=== PATIENT | male | born 1980 | race Caucasian/White ===

== ENCOUNTER → 2017-12-15 05:57 | Outpatient (CLI) | payer OTHER, SELFPAY ==
--- NOTE | 2017-12-15 17:51 | STRESSREP ---
Stress Test Report Exercise myocardial perfusion stress test. 37-year-old man with a history of hypertension. Cannot exclude hypertrophic cardiomyopathy. Medications metoprolol verapamil. Resting EKG demonstrates sinus rhythm with a rate of 64 bpm. Deep T-wave inversions noted in leads II, III and aVF V4 V5 and V6. The patient exercised according to the regular Xiang protocol for total duration of 7 minutes completing 1 minute into stage III of the Xiang protocol. The maximum heart rate attained was 150 bpm which was 82% of maximum predicted heart rate the maximum workload attained was 8.6 metabolic equivalents. The patient maintained sinus rhythm throughout the recording. The T-wave inversions persisted throughout the exercise. No chest pain was noted the test was terminated due to leg fatigue and shortness of breath. No arrhythmias were noted. The resting blood pressure was 142/80 mmHg and the peak blood pressure was 190/90 mmHg. Rate pressure product was 26,000. Myocardial perfusion protocol. 14.8 mCi of technetium 99m sestamibi was injected at rest. The patient exercised according to regular Xiang protocol for 7 minutes attaining 82% maximum corrected heart rate and a workload of 8.6 metabolic equivalents. At peak exercise 44.7 mCi of technetium 99m sestamibi was injected. Stress images were obtained stress and rest images were reconstructed and compared in the short axis vertical long and horizontal long axis. Gated images were also obtained. Perfusion SPECT analysis: Review of the stress images demonstrate a normal cardiac silhouette size. The septum and anterior wall and lateral wall appear to be well perfused. The mid to distal inferior wall and inferoapical wall has a medium-sized defect on the stress images which reperfuses completely on the resting images. The above is suggestive of inferior apical ischemia. Gated SPECT analysis: The gated ejection fraction is noted to be 48%. Conclusion: Abnormal myocardial perfusion stress test with EKG changes as well as distal inferior apical ischemia present. Mild left ventricular systolic dysfunction.
== END ==
PROVIDERS: Family Provider Internal Medicine; PCP Internal Medicine; Visit Provider Internal Medicine Cardiovascular Disease
DX: I25.10 Atherosclerotic heart disease of native coronary artery without angina pectoris (principal); I42.1 Obstructive hypertrophic cardiomyopathy
CPT/HCPCS: 78452; 93017; A9500; A4216

== ENCOUNTER → 2018-01-02 08:14 | Day surgery (SDC) | payer OTHER, SELFPAY ==
[2018-01-01 13:03] VITALS: BMI 39.0
--- NOTE | 2018-01-02 08:48 | PCM.HP.BLA ---
History and Physical HPI Details: RANDOLPH VAZQUEZ, is a 37 M who presents to the cardiac Director [employer] for left heart catheterization. Patient was seen and examined prior to heart catheterization. He is currently a patient of Dr. Benitez, Box Truck Driver. He has a history of mild coronary artery disease noted in August of 2016, hypertrophic obstructive cardiomyopathy variant, vasovagal syncope, hypertension, hyperlipidemia, palpitations, and GI bleed in 2012. While at his most recent office visit with Dr. Benitez, patient expressed concerning symptoms of chest pain/tightness and decreased physical capacity. He underwent a stress test for further evaluation. His stress test was abnormal and showed distal inferior apical ischemia and mild LV systolic dysfunction with an ejection fraction 48%. Patient will be undergoing a left heart catheterization for further evaluation. He continues to have chest tightness. Pt. denies left arm, jaw, or neck discomfort. His exercise tolerance is reduced. Pt. denies symptoms of lightheadedness, dizziness, near syncope, or syncopal episodes. Pt. denies edema or claudication issues. Pt. denies orthopnea, PND, fever, chills, blood in urine, blood in stool, myalgia, or unexplainable fatigue. Pt. states having episodes of palpitations that occur while walking in the store at times. He expresses some SOB with activity, but this is unchanged. Intake Intake Visit Reasons: Amb Documentation Allergies No Known Allergies Allergy (Verified 01/01/18 13:05) Medications Metoprolol(XL)Succ [Toprol Xl (Beta Tomas)] 50 mg PO BID 06/29/17 [History Confirmed 01/01/18] aspirin 81 mg tablet,delayed release 81 mg PO .Q DAY tab 12/18/17 [History Confirmed 01/01/18] clopidogrel 75 mg tablet 75 mg PO QDAY #30 tab 12/18/17 [Rx Confirmed 01/01/18] omeprazole 40 mg capsule,delayed release 40 mg PO QDAY 12/18/17 [History Confirmed 01/01/18] Ibuprofen 800 mg PO Q6H PRN PRN 01/01/18 [History Confirmed 01/01/18] Verapamil Sr 120 mg PO QHS 01/01/18 [History Confirmed 01/01/18] Atorvastatin Calcium [Lipitor] 20 mg PO QHS 01/02/18 [History Confirmed 01/02/18] Ejection fraction %: 45 to 49 PFSH Medical History Atherosclerosis of menominee coronary artery of menominee heart without angina pectoris (Chronic) Palpitations (Acute) Syncope and collapse (Acute) HOCM (hypertrophic obstructive cardiomyopathy) (Chronic) Abnormal stress test (Acute) Chest pain (Acute) Abnormal resting ECG findings (Chronic) Anxiety (Chronic) Cervicalgia (Chronic) Erosive esophagitis (Chronic) Essential (primary) hypertension (Chronic) Headache (Chronic) Heart murmur (Chronic) Herpes zoster (Chronic) Hyperlipidemia (Chronic) Nicotine dependence, cigarettes, uncomplicated (Chronic) GI bleed (Resolved) Surgical History H/O colonoscopy (Acute ~03/24/13) History of esophagogastroduodenoscopy (EGD) (Chronic) History of left heart catheterization (Chronic) Family History Father CAD (coronary artery disease) CABG at age 55; at 57 with possible [place], Diabetes Hypertension Hyperlipidemia Grandfather CAD (coronary artery disease) Grandmother Diabetes Brother Hypertension Social History Smoking Status: Current every day smoker ROS Const Const: Positive for headache(s) and daytime sleepiness; negative for fatigue, weakness, body ache, fever(s) or chills ENT ENT: Positive for headache(s); negative for dizziness Cardio Chest Pain: Yes Palpitations: Yes Edema: Left Muscle aches with walking: None Resp Respiratory: Positive for SOB with activity and snoring; negative for SOB at rest, SOB orthopnea\SOB lying down or paroxysmal nocturnal dyspnea GI GI: Negative nausea, black,tarry stools, bright, red blood in stools or vomiting blood/hematemesis : Negative for hematuria or frequent nighttime urination/ nocturia Musc Musc: Negative for muscle aches/ myalgia Neuro Neuro: Positive for headache(s); negative for weakness, dizziness, lightheadedness, near syncope, syncope or orthostatic symptoms Endo Endo: Negative for fatigue Cardiology Exam Const Appearance: cooperative, healthy appearing, comfortable and no acute distress Orientation: alert, awake and oriented x3 Head Head: normal to inspection Mouth: oral mucosae normal Neck Neck: no JVD and normal visual inspection Carotids: normal carotid upstroke Chest Chest inspection: normal inspection of the chest and normal respiratory effort Auscultation: Bilateral: Clear to Auscultation Cardio Rate: regular rate Rhythm: regular rhythm Heart sounds: S2 normal and murmur; negative rub or gallop Murmur: Grade 2/6 and LLSB GI GI: normal to inspection Neuro General: alert, awake, oriented x3 and CN's II-XI intact bilaterally Skin Skin: no rashes or lesions noted Extremities Pulses: Normal: Right Posterior Tibial Pulse, Left Posterior Tibial Pulse, Right Radial Pulse, Left Radial Pulse Lower Extremity Edema: None: Bilateral Psych Psychological: normal affect Supplemental Info Cardiovascular stress test from December 2017 was an abnormal myocardial perfusion stress test with EKG changes as well as distal inferior apical ischemia present and mild left ventricular systolic dysfunction. Ejection fraction was reported at 48%. Assessment & Plan 1. Chest pain, unspecified type R07.9 Plan This was evaluated with a stress test that was abnormal. Patient will be undergoing a left heart catheterization for further evaluation. Patient will also continue to follow-up with primary residential door unit installer, Dr. Benitez, for further treatment plan/recommendation in his office. 2. Palpitations R00.2 Plan Patient continues to have fluttering sensation in his chest. He will continue current medications for this. He will continue to follow-up with primary Box Truck Driver for this. 3. Syncope and collapse R55 vasovagal syncope Plan Patient denies any recurrence of this. He will continue follow-up with primary care physician and residential door unit installer regarding this. 4. HOCM (hypertrophic obstructive cardiomyopathy) I42.1 apical variant form of HCM noted in 2016. LVOT obstruction noted 2008 Plan There is no echocardiogram available to review to further evaluate this. He will continue follow-up with primary residential door unit installer for ongoing treatment/management of this. 5. Pure hypercholesterolemia E78.00; E78.0 Plan Patient will continue statin medication for this. 6. Daytime somnolence R40.0 Plan Patient expresses symptoms potentially compatible with sleep apnea. He was asked to discuss this further with Primary Box Truck Driver or Primary Care Doctor. 7. Atherosclerosis of menominee coronary artery of menominee heart without angina pectoris I25.10 minimal CAD per cath 08/2016 Plan This will further be evaluated for progressing disease with the left heart cath. We will wait for the result for further recommendation. Plan Detail Additional Comments Patient will follow up with Dr. Benitez for ongoing cardiology care. Thank you for allowing us to participate in the patients plan of care, if you have any questions please do not hesitate to call. This note was generated using a voice recognition system and there may be incorrect words, spelling or punctuation that were not noted when reviewing the office note prior to saving.
--- NOTE | 2018-01-06 11:23 | CL.D_ITS ---
Patient Name: RANDOLPH VAZQUEZ Study Date: 01/02/2018 Performing: Chan Rose MD Ht: 71 inches 180.34 cm : 1980 Wt: 280.4 lbs 127.01 kg Age: 37 Gender: male BSA: 2.43 PROCEDURE(S) PERFORMED [id number] CLINICAL PROFILE AND INDICATIONS Indications: 37-year-old man with hypertrophic cardiomyopathy and abnormal stress test. Heart Failure: None Stress/Imaging Stress Test w/SPECT MPI: Yes Result: Positive Intermediate RiskStress Test with SP ECT MPI: Positive Intermediate Risk CONCLUSIONS Normal coronary arteries Cardiomyopathy: Hypertrophic RECOMMENDATIONS Medical therapy Medical therapy DESCRIPTION OF PROCEDURE The patient arrived to the procedure lab. The risks and benefits of the procedure as well as a full d escription of our services here and current unavailability of surgical backup were fully explained to the patient and/or their significant other prior to the catheterization. The Timeout was completed, verifying the correct patient and procedure. The patient's procedural site was prepped and draped in the usual fashion. Local anesthetic was given subcutaneously to right radial region with Lidocaine 2% . Using a modified Seldinger technique, arterial access was obtained via the right radial artery, a 5 Fr sheath was inserted. Left Coronary Artery selective angiography was performed in multiple views u sing a 5 Fr. 4.0 [place] catheter. Left Coronary Artery selective angiography was performed in multiple views using a 5 Fr. JL3.5 catheter. Right Coronary Artery selective angiography was then performed i n multiple views using a 5 Fr. JR 5 catheter.The arterial sheath was pulled and a TR Band was applied for hemostasis. 13cc air CORONARY ANGIOGRAPHY DOMINANCE: Right Dominant LEFT HEART ASSESSMENT Left Ventricular Ejection Fraction: by Echo 75 % Normal LV wall motion LEFT MAIN: Angiographically normal LEFT ANTERIOR DECENDING ARTERY: Angiographically normal CIRCUMFLEX ARTERY: Angiographically normal RIGHT CORONARY ARTERY: Mild luminal irregularities less than 30% COMPLICATIONS No Complications PROCEDURE MEDICATIONS Fentanyl 50 mcg IV Versed 1 mg IV Fentanyl 25 mcg IV Oxygen: 2 L/min via nasal cannula Heparin diluted in 23cc Heparinized saline. Patient given 10cc IA of this solution. 01/02/2018 09:48: 10 Verapamil 2.5mg, Ntg 100mcgs, 2000 units of Heparin diluted in 23cc Heparinized saline. Patient give n 10cc IA of this solution. 01/02/2018 09:48:10 SUMMARY OF HEMODYNAMIC DATA Time AIR REST ECG 08:48:17 ECG 09:28:34 AO 120/90 (103) SA 09:51:49 Signed By Chan Rose MD On 01/06/2018 11:23:07 Chan Rose MD
== END ==
LOC: CLSP 08:15
PROVIDERS: Family Provider Internal Medicine; PCP Internal Medicine; Visit Provider Internal Medicine Cardiovascular Disease
DX: I42.1 Obstructive hypertrophic cardiomyopathy (principal); R94.31 Abnormal electrocardiogram [ECG] [EKG]; R07.9 Chest pain, unspecified; R00.2 Palpitations; R55 Syncope and collapse; I25.10 Atherosclerotic heart disease of native coronary artery without angina pectoris; I10 Essential (primary) hypertension; E78.5 Hyperlipidemia, unspecified; K22.10 Ulcer of esophagus without bleeding; R01.1 Cardiac murmur, unspecified; F17.210 Nicotine dependence, cigarettes, uncomplicated; Z79.82 Long term (current) use of aspirin; Z79.899 Other long term (current) drug therapy
CPT/HCPCS: 93454; 99152; 99153; J3010; J7040; Q9967

== ENCOUNTER → 2020-03-01 16:42 | Outpatient (CLI) | payer BC, SELFPAY ==
[2020-03-01 15:43] VITALS: BMI 41.5
[2020-03-01 17:38] LABS: AST(SGOT) 33 U/L (15-37); Alanine Aminotransfer ALT/SGPT 62 U/L (16-61); Albumin, Serum 3.7 g/dL (3.2-5.0); Alkaline Phosphatase 84 U/L (45-117); Bilirubin, Direct 0.21 mg/dL (0.00-0.30); Cholesterol 167 mg/dL (200); Globulin 3.3 g/dL (2.2-4.2); High Density Lipoprotein 27 mg/dL; Triglycerides 298 mg/dL; Very Low Density Lipoprotein 60 mg/dL (5-40)
--- OUTSIDE RECORDS SUMMARY | 2020-07-18 18:09 | XMS RPT_ITS | CCD ---
:1980 External Reference #:[id number] Author Organization [facility] Care Team Providers Name Role Phone ERIKA, E Unavailable Unavailable ERIKA, E Unavailable Unavailable ERIKA, E Unavailable Unavailable ERIKA, E Unavailable Unavailable ERIKA Unavailable Unavailable ERIKA Unavailable Unavailable Bran Unavailable Unavailable ERIKA Unavailable Unavailable ERIKA Unavailable Unavailable Bran Unavailable Unavailable ERIKA Unavailable Unavailable ERIKA Unavailable Unavailable Bran Unavailable Unavailable ERIKA Unavailable Unavailable ERIKA Unavailable Unavailable Bran Unavailable Unavailable ERIKA, E Unavailable Unavailable HERRERA, A Admitting Unavailable Denisse HERRERA Attending Unavailable NONE Primary Care Unavailable NONE Consulting Unavailable Allergies Reported Allergen Reaction(s) Severity Date of Onset Location buPROPion Mild (qualifier [facility] Hospital Reposi tory Problems Category Problem Name Status Date Location Coronary atherosclerosis Atherosclerotic heart Active 018 [facility] and other heart disease disease of [place] ([address]) coronary artery without angina pectoris Essential hypertension Essential (primary) Active 05-15-2017 - [facility] ([id number]) Miscellaneous mental Psychophysiologic Active 10-26-2019 - [facility] (0 0000) Malissa-; endo-; and Obstructive hypertrophic Active 12-01-2017 - [facility] myocarditis; cardiomyopathy [facility] cardiomyopathy ([id number]) Unclassified Unknown / UNK(Unknown) Active 05-15-2017 - [facility] ([id number]) Results Result Name Value Range Unit Interpretation Flag Date Location obsolete on 2019-05 OBSOLETE Refill (INTMWS) Normal 05-17-2019 [facility] TYRON VAZQUEZ ([id number]) 1980 [facility] Date Time Provider Department ([id number]) 05/17/19 ERNESTO BRAN During your visit today, we recorded the following informati on about you: Michaelle Marsh RN 05/17/2019 2:28 PM Signed Patient phones requesting refills as follows: Pending Prescriptions Disp Refills OMEPRAZOLE MAGNESIUM 20 MG TABLET,DELAYED RELEASE 60 tablet 5 Sig: Take 2 tablets by mouth daily before breakfast. 1/2 hr before meal. SARA: No Last office visit 12-01-18 Please review and advise. Michaelle Marsh RN Allergies As of Date: 05/17/2019 Noted Allergy Reaction BUPROPION 05/18/2018 14 - Other: See Comments Comments: Flushing, numbness, tingling. Date Reviewed: 12/01/2018 Reviewed by: Ghazala Dodd Ma - Fully Assessed Reason for Visit: Refill Request [94] Visit Diagnosis:Erosive esophagitis [K22.10] Order(s):Omeprazole Magnesium (PRILOSEC OTC) 20 mg tabletTak e 2 tablets by mouth daily before breakfast. 1/2 hr before meal.Disp: 60 ta bletRfl: 5 Prescriptions as of 05/17/2019 Sig: OMEPRAZOLE MAGNESIUM 20 MG TA* Take 2 tablets by mouth daily * METOPROLOL SUCCINATE ER 100 M* Take 1 tablet by mouth twice * FLUTICASONE PROPIONATE 50 MCG* Use 2 Sprays in each nostril * FLUCONAZOLE 150 MG TABLET Take 150 mg by mouth. Take tw* ATORVASTATIN 40 MG TABLET Take 1 tablet by mouth daily MOMETASONE 0.1 % TOPICAL CREAM Apply 1 application to affect * NITROGLYCERIN 0.4 MG SUBLINGU* Dissolve 1 tablet under the t * IBUPROFEN 200 MG TABLET Take 800 mg by mouth every 6 * Problem List As Of Date 05/17/2019 Noted Resolved HTN (hypertension) [I10] INVALID FOR*01/15/2013 Anxiety [F41.9] INVALID FOR*01/15/2013 Cervicalgia [M54.2] INVALID FOR*01/15/2013 Hyperlipidemia [E78.5] INVALID FOR* Erosive esophagitis [K22.10] INVALID FOR* Tobacco use disorder [F17.200] INVALID FOR* Syncope and collapse [R55] INVALID FOR*07/09/2016 Abnormal ECG [R94.31] INVALID FOR*05/18/2018 Family history of ischemic heart disease [Z82.4*INVALID FOR* Chest pain [R07.9] INVALID FOR*05/18/2018 Apical variant hypertrophic cardiomyopathy (HCC*INVALID FOR* HTN (hypertension) [I10] INVALID FOR* Obesity, Class II, BMI 35-39.9 [E66.9] INVALID FOR* Eczema [L30.9] INVALID FOR* Prescriptions ordered this encounter Disp Refills Start End OMEPRAZOLE MAGNESIUM 20 MG TABLET,DE* 60 t* 5 05/18/2019 Route: ORAL Sig: Take 2 tablets by mouth daily before breakfast. 1/2 hr before meal. Medications Discontinued During This Encounter Omeprazole Magnesium (PRILOSEC OTC) * 60 t* 5 08/26/201805/06 Route: ORAL Sig: Take 2 tablets by mouth daily before breakfast. 1/2 hr before meal. Disc: Auto DC at discharge. Encounter Status:Closed by ERNESTO BRAN MD on 05/18/19 obsolete on 2019-04 OBSOLETE Refill (INTMWS) Normal 04-27-2019 [facility] TYRON VAZQUEZ ([id number]) 1980 [facility] Date Time Provider Department ([id number]) 04/27/19 ERNESTO BRAN INTMWS During your visit today, we recorded the following informati on about you: Amanda Vazquez RN 04/27/2019 2:15 PM Signed Patient had insurance change and Dr. Bran is out of network for him and can no longer be his PCP and patient's cardiolog ist, Dr. James also retired. Patient has been out of Metoprolol last few days and will se e jon [facility] Natural Resources Specialist on 05/05/[address]. [address] Bran to send short term supply of medication to [facility], until he sees his new Natural Resources Specialist? Please review and advise. Amanda Vazquez RN Daniel Heller Cma 04/27/2019 2:55 PM Signed The following approved medic ation requests have been transmitted electronically. Signed Prescriptions Disp Refills metoprolol succinate ER (TOPROL XL) 100 mg Tb24 20 tablet 0 Sig: Take 1 tablet by mouth twice daily. SARA: Yes Authorizing Provider: MICHELLE GUTIERRES ([employer]) Daniel Heller Cma Allergies As of Date: 04/27/2019 Noted Allergy Reaction BUPROPION 05/18/2018 14 - Other: See Comments Comments: Flushing, numbness, tingling. 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 Take tw* ATORVASTATIN 40 MG TABLET Take 1 tablet by mouth daily MOMETASONE 0.1 % TOPICAL CREAM Apply 1 application to affect * NITROGLYCERIN 0.4 MG SUBLINGU* Dissolve 1 tablet under the t * IBUPROFEN 200 MG TABLET Take 800 mg by mouth every 6 * Problem List As Of Date 04/27/2019 Noted Resolved HTN (hypertension) [I10] INVALID FOR*01/15/2013 Anxiety [F41.9] INVALID FOR*01/15/2013 Cervicalgia [M54.2] INVALID FOR*01/15/2013 Hyperlipidemia [E78.5] INVALID FOR* Erosive esophagitis [K22.10] INVALID FOR* Tobacco use disorder [F17.200] INVALID FOR* Syncope and collapse [R55] INVALID FOR*07/09/2016 Abnormal ECG [R94.31] INVALID FOR*05/18/2018 Family history of ischemic heart disease [Z82.4*INVALID FOR* Chest pain [R07.9] INVALID FOR*05/18/2018 Apical variant hypertrophic cardiomyopathy (HCC*INVALID FOR* HTN (hypertension) [I10] INVALID FOR* Obesity, Class II, BMI 35-39.9 [E66.9] INVALID FOR* Eczema [L30.9] INVALID FOR* Prescriptions ordered this encounter Disp Refills Start End METOPROLOL SUCCINATE ER 100 MG TABLE* 20 t* 0 04/27/2019 Route: ORAL Sig: Take 1 tablet by mouth twice daily. Medications Discontinued During This Encounter metoprolol succinate ER (TOPROL XL) * 62 t* 11 04/06/201804/27 Cmt: Par, Lannett or Aralez brand generic acceptable, otherwise must be name brand Astra Zeneca Route: ORAL Sig: Take 1 tablet by mouth twice daily. Disc: Reason for discontinue is not on file. Encounter Status:Closed by DANIEL HELLER CMA on 04/27/19 progress on 2018-11 PROGRESS HNO ID: [id number] Normal 12-01-2018 [facility] Author: Shalini (Sheepskin Pickler) [place] ([id number]) Service: (none) Author Type: Nurse Practitioner Type: Progress Notes Filed: 12/01/2018 3:43 PM Note Text: CC: Patient presents with: Head Congestion: Head congestion, sinus pressure, ear pressu re x 5 days HPI: Tyron Vazquez is a 38 year old male who presents to the office with complaint of head congestion for 5 days. Symptoms started wi th head pressure. Today associated symptoms includes facial pain/pre ssure maxillary, body aches, ear pressure bilateral and fatigue. H e denies sore throat, rhinorrhea, swollen glands, fever, ear pain, nausea, vomiting and diarrhea. Treatments tried include Dayquil and Nyquil with m inor relief of symptoms. Sick contacts: no. Patient denies a history of no history of pneumonia or bronchitis. Smoker, 0.5-1 ppd and with a history of seasonal allergies. Patient is going out of town this weekend and didn't want to get worse before he needed to leave. The ROS is otherwise negative. The patient's pmh, medications, allergies, and past visits a re reviewed. PHYSICAL EXAM: BP 132/84 Pulse 78 Temp 36.8 ?C (98.3 ?F) (Temporal Chantal ry) Resp 16 Wt 128.4 kg (283 lb) SpO2 98% BMI 38.92 kg/m? General appearance: alert, cooperative, pleasant, in no acut e distress Head: Normocephalic Eyes: EOM's intact, conjunctiva pink and moist, no icterus, sclera white, non-injected Ears: Right ear: Normal, TM - dull. Left ear: Normal, TM - d ull Nose: clear rhinorrhea. No sinus tenderness Oropharynx:mild erythema Neck:supple and no adenopathy Heart: Negative. RRR without obvious murmur, gallop, or rubs . No ectopy. Lungs: clear to auscultation, without rales or wheeze, good air exchange ASSESSMENT/PLAN: 1. Sinus congestion - ICD9: 478.19, ICD10: R09.81 - Discussed likely viral etiology - Supportive treatment with plenty of rest, fluids and OTC a nalgesics PRN - METHYLPREDNISOLONE 4 MG TABLETS IN A DOSE PACK - FLUTICASONE 50 MCG/ACTUATION NASAL SPRAY,SUSPENSION - Pre-dated prescription for Amoxicillin to be filled in 3 d ays if no symptom improvement prior to patient's planned travel Prescription instructions reviewed with patient as applicabl e. Potential red flag symptoms discussed with the patient. Reviewed appro priate action plan to take if red flag symptoms occur. Patient agreeable t o treatment plan. Shalini Cuadra APRN.ALEISHA barnett on 2018-12-01 CNOV Office Visit (INTMWS) Normal 12-01-19 [facility] TYRON VAZQUEZ ([id number]) 1980 [facility] Date Time Provider Department ([id number]) 12/01/18 2:40 PM SHALINI CUADRA ([employer] [employer]) INTMWS During your visit today, we recorded the following informati on about you: Temperature Pulse Respiration Blood pressure 98.3 degrees 78/minute 16/minute 132/84 Weight 128.4 kg Shalini CuadraBRODERICK.ALEISHA 12/01/2018 3:43 PM Signed CC: Patient presents with: Head Congestion: Head congestion, sinus pressure, ear pressu re x 5 days HPI: Tyron Vazquez is a 38 year old male who presents to the office with complaint of head congestion for 5 days. Symptom s started with head pressure. Today associated symptoms includes facia l pain/pressure maxillary, body aches, ear pressure bilateral and fatigue. He d enies sore throat, rhinorrhea, swollen glands, fever, ear pain, nausea, vomiting and diarrhea. Tricia tments tried include Dayquil and Nyquil with minor relief of symptoms. Sick contacts: no. Patient denies a history of no history of pneumonia or bronchitis. Smoker, 0.5-1 ppd and with a history of seasonal allergies. Patient is going out of town this weekend and di dn't want to get worse before he needed to leave. The ROS is otherwise negative. The patient's pmh, medications, allergies, and past visits a re reviewed. PHYSICAL EXAM: BP 132/84 Pulse 78 Temp 36.8 ?C (98.3 ?F) (Temporal Ar lynette) Resp 16 Wt 128.4 kg (283 lb) SpO2 98% BMI 38.92 kg/m? General appearance: alert, cooperative, pleasant, in no acut e distress Head: Normocephalic Eyes: EOM's intact, conjunctiva pink and moist, no icterus, sclera white, non-injected Ears: Right ear: Normal, TM - dull. Left ear: Normal, TM - d ull Nose: clear rhinorrhea. No sinus tenderness Oropharynx:mild erythema Neck:supple and no adenopathy Heart: Negative. RRR without obvious murmur, gallop, or rubs . No ectopy. Lungs: clear to auscultation, without rales or wheeze, good air exchange ASSESSMENT/PLAN: 1. Sinus congestion - ICD9: 478.19, ICD10: R09.81 - Discussed likely viral etiology - Supportive treatment with plenty of rest, fluids and OTC a nalgesics PRN - METHYLPREDNISOLONE 4 MG TABLETS IN A DOSE PACK - FLUTICASONE 50 MCG/ACTUATION NASAL SPRAY,SUSPENSION - Pre-dated prescription for Amoxicillin to be f illed in 3 days if no symptom improvement prior to patient's planned travel Prescription instructions reviewed with patient as gerber licable. Potential red flag symptoms discussed with the patient. Review ed appropriate action plan to take if red flag symptoms occur. Patient agreeable to treatm ent plan. Shalini Cuadra APRN.[employer] Referring Provider: SELF [200] Allergies As of Date: 12/01/2018 Noted Allergy Reaction BUPROPION 05/18/2018 14 - Other: See Comments Comments: Flushing, numbness, tingling. Date Reviewed: 12/01/2018 Reviewed by: Ghazala Dodd Ma - Fully Assessed Reason for Visit: Head Congestion [234] Cmt: Head congestion, sinus pres sure, ear pressure x 5 days Primary Visit Diagnosis:Sinus congestion [R09.81] Order(s):methylPREDNISolone (MEDROL, DIEGO,) 4 mg Dose-PackFol low dosing instructions, take with food.Disp: 1 PackageRfl: 0 fluticasone (FLONASE) 50 mcg/actuation nasal sprayUse 2 Spra ys in each nostril once daily. Rinse mouth after use.Disp: 1 Bottl eRfl: 1 [START ON 12/03/2018] Amoxicillin 500 mg tabletTake 1 tablet by mouth twice daily for 5 days.Disp: 10 tabletRfl: 0 Prescriptions as of 12/01/2018 Sig: METHYLPREDNISOLONE 4 MG TABLE* Follow dosing instructions, t * FLUTICASONE 50 MCG/ACTUATION * Use 2 Sprays in each nostril * AMOXICILLIN 500 MG TABLET Take 1 tablet by mouth twice * OMEPRAZOLE MAGNESIUM 20 MG TA* Take 2 tablets by mouth daily * FLUCONAZOLE 150 MG TABLET Take 150 mg by mouth. Take tw* ATORVASTATIN 40 MG TABLET Take 1 tablet by mouth daily MOMETASONE 0.1 % TOPICAL CREAM Apply 1 application to affect * METOPROLOL SUCCINATE ER 100 M* Take 1 tablet by mouth twice * NITROGLYCERIN 0.4 MG SUBLINGU* Dissolve 1 tablet under the t * IBUPROFEN 200 MG TABLET Take 800 mg by mouth every 6 * Problem List As Of Date 12/01/2018 Noted Resolved HTN (hypertension) [I10] INVALID FOR*01/15/2013 Anxiety [F41.9] INVALID FOR*01/15/2013 Cervicalgia [M54.2] INVALID FOR*01/15/2013 Hyperlipidemia [E78.5] INVALID FOR* Erosive esophagitis [K22.10] INVALID FOR* Tobacco use disorder [F17.200] INVALID FOR* Syncope and collapse [R55] INVALID FOR*07/09/2016 Abnormal ECG [R94.31] INVALID FOR*05/18/2018 Family history of ischemic heart disease [Z82.4*INVALID FOR* Chest pain [R07.9] INVALID FOR*05/18/2018 Apical variant hypertrophic cardiomyopathy (HCC*INVALID FOR* HTN (hypertension) [I10] INVALID FOR* Obesity, Class II, BMI 35-39.9 [E66.9] INVALID FOR* Eczema [L30.9] INVALID FOR* Prescriptions ordered this encounter Disp Refills Start End METHYLPREDNISOLONE 4 MG TABLETS IN A* 1 Pa* 0 12/01/201801/2019 Sig: Follow dosing instructions, take with food. FLUTICASONE 50 MCG/ACTUATION NASAL S* 1 [place]* 1 12/01/2018 Route: EACH NOSTRIL Sig: Use 2 Sprays in each nostril once daily. Rinse mouth af ter use. AMOXICILLIN 500 MG TABLET 10 t* 0 12/03/2018 12/08/2018 Route: ORAL Sig: Take 1 tablet by mouth twice daily for 5 days. Encounter Status:Closed by SHALINI CUADRA CNP on 12/01/18 rohan on 06-06-29 [facility] Outreach (INTMWH) Normal 0 11-03-2018 [facility] TYRON VAZQUEZ ([id number]) 1980 [facility] Date Time Provider Department ([id number]) 11/03/18 [facility]STO [facility]AN [facility] During your visit today, we recorded the following informati on about you: Allergies As of Date: 11/03/2018 Noted Allergy Reaction BUPROPION 05/18/2018 14 - Other: See Comments Comments: Flushing, numbness, tingling. Date Reviewed: 07/27/2018 Reviewed by: Deonna Rizzo LPN - Fully Assessed Visit Diagnosis:Medication management [Z79.899] Order(s):HGB A1C [OCFOI0I] Order #: [id number] FUTURE Prescriptions as of 11/03/2018 Sig: OMEPRAZOLE MAGNESIUM 20 MG TA* Take 2 tablets by mouth daily * FLUCONAZOLE 150 MG TABLET Take 150 mg by mouth. Take tw* ATORVASTATIN 40 MG TABLET Take 1 tablet by mouth daily MOMETASONE 0.1 % TOPICAL CREAM Apply 1 application to affect * METOPROLOL SUCCINATE ER 100 M* Take 1 tablet by mouth twice * NITROGLYCERIN 0.4 MG SUBLINGU* Dissolve 1 tablet under the t * IBUPROFEN 200 MG TABLET Take 800 mg by mouth every 6 * Problem List As Of Date 11/03/2018 Noted Resolved HTN (hypertension) [I10] INVALID FOR*01/15/2013 Anxiety [F41.9] INVALID FOR*01/15/2013 Cervicalgia [M54.2] INVALID FOR*01/15/2013 Hyperlipidemia [E78.5] INVALID FOR* Erosive esophagitis [K22.10] INVALID FOR* Tobacco use disorder [F17.200] INVALID FOR* Syncope and collapse [R55] INVALID FOR*07/09/2016 Abnormal ECG [R94.31] INVALID FOR*05/18/2018 Family history of ischemic heart disease [Z82.4*INVALID FOR* Chest pain [R07.9] INVALID FOR*05/18/2018 Apical variant hypertrophic cardiomyopathy (HCC*INVALID FOR* HTN (hypertension) [I10] INVALID FOR* Obesity, Class II, BMI 35-39.9 [E66.9] INVALID FOR* Eczema [L30.9] INVALID FOR* Encounter Status:Closed by ABRAN PRODUSER on 11/18/18 vitamin b12 on 2017 Cobalamin (Vitamin B12) [phone] pg/mL Normal 2017 [facility] [Mass/Vol] [place] ([id number]) Comment: Performed By: #### TSH, B12 ####[facility] [address] [place], [place] [id number]- [phone] tsh on 2018-07-27 TSH Qn 1.940 0.400-5.500 uU/mL Normal 07-27-2018 [facility] ([id number]) Comment: Performed By: #### TSH, B12 ####[facility] [address] [place], [place] [id number]- [phone] progress on 2018-07 PROGRESS HNO ID: [id number] Normal 07-27-2018 [facility] Author: Ernesto Bran [place] ([id number]) Service: (none) Author Type: Physician Type: Progress Notes Filed: 07/27/2018 10:32 AM Note Text: This note was created using Virtusizeriter. Subjective Tyron Vazquez is a 37 year old male was here for memory difficulties noted by him and his family. He estimated this started about 6 months ago. 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 He loses his train of thought doing usual activi ties of daily living. He had to look up his address one time. He had no fu nctional impact on work or family life. His who is an RN was con cerned he was not getting enough brain oxygen. Sleep apnea was not a reina rn but snoring was noted. Review of Systems Constitutional: Negative. Eyes: Positive for visual disturbance. Flashing lights right eye 15-30 minutes without headache 4 e pisodes this year. Respiratory: Negative. Cardiovascular: Negative. Neurological: Negative for dizziness, seizures, syncope, fac ial asymmetry, speech difficulty, weakness, light-headedness, numbness and headaches. Psychiatric/Behavioral: Positive for confusion and decreased concentration. Negative for dysphoric mood, hallucinations a nd sleep disturbance. The patient is not nervous/anxious. Objective BP 124/70 (BP Site: Left Arm, BP Position: Sitting, BP Cuff Size: Large Adult) Pulse 68 Temp (!) 35.9 ?C (96.6 ?F) (Left Tympani c) Resp 20 Wt 126.6 kg (279 lb) BMI 38.37 kg/m? Physical Exam Constitutional: He is oriented to person, place, and time. H e appears well-nourished. No distress. Neurological: He is alert and oriented to person, place, and time. He has normal strength and normal reflexes. He displays no tremor. No cranial nerve deficit or sensory deficit. He displays a negative Rom victoria sign. Coordination and gait normal. Folstein MMSE 30/30 PHQ-9=7 Assessment and Plan 1. Memory disturbance - ICD9: 780.93, ICD10: R41.3 (primary diagnosis) Rule out mood disorder, obstructive sleep apnea. Continue to monitor instances, examples. - B12, TSH pending. 2. Visual field scotoma of right eye - ICD9: 368.44, ICD10: H53.411 Intermittent, no headache. - CONSULT TO OPHTHALMOLOGY 3. Snoring - ICD9: 786.09, ICD10: R06.83 He may need work up of obstructive sleep apnea with cognitiv e effects. Ernesto Bran MD cnov on 2018-07-27 CNOV Office Visit (INTMWS) Normal 07-27-[address] [place] [address] Clinic ASH[facility] VAZQUEZCORNELL Soto ([id number]) 1980 [facility] Date Time Provider Department ([id number]) 07/27/18 9:40 AM ERNESTO BRAN INTMWS During your visit today, we recorded the following informati on about you: Temperature Pulse Respiration Blood pressure 96.6 degrees 68/minute 20/minute 124/70 Weight 126.6 kg Ernesto Bran MD 07/27/2018 10:32 AM Signed This note was created using Virtusizeriter. Subjective Tyron Soto Kobi is a 37 year old male was here for memory difficulties noted by him and his family. He estimated this started about 6 mon s ago. 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 He loses his train of thought doing usual activities of d aily living. He had to look up his address one time. He had no functional impact on work or family life. His who is an RN was concerned he was not getting enough brain oxygen. Sleep apnea was not a concern but snoring was noted. Review of Systems Constitutional: Negative. Eyes: Positive for visual disturbance. Flashing lights right eye 15-30 minutes without headache 4 e pisodes this year. Respiratory: Negative. Cardiovascular: Negative. Neurological: Negative for dizziness, seizures, syncope, fac ial asymmetry, speech difficulty, weakness, light-headedness, numbness and headaches. Psychiatric/Behavioral: Positive for confusion and decreas ed concentration. Negative for dysphoric mood, hallucinati ons and sleep disturbance. The patient is not nervous/anxious. Objective BP 124/70 (BP Site: Left Arm, BP Positio n: Sitting, BP Cuff Size: Large Adult) Pulse 68 Temp (!) 35.9 ?C (96.6 ?F) (Left Tympanic ) Resp 20 Wt 126.6 kg (279 lb) BMI 38.37 kg/m? Physical Exam Constitutional: He is oriented to person, place, and time. H e appears well-nourished. No distress. Neurological: He is alert and oriented to person, place, and time. He has normal strength and normal reflexes. He displays no tr emor. No cranial nerve deficit or sensory deficit. He displays a negati ve Romberg sign. Coordination and gait normal. Folstein MMSE 30/30 PHQ-9=7 Assessment and Plan 1. Memory disturbance - ICD9: 780.93, ICD10: R41.3 (primary diagnosis) Rule out mood disorder, obstructive sleep apnea. Continue to monitor instances, examples. - B12, TSH pending. 2. Visual field scotoma of right eye - ICD9: 368.44, ICD10: H53.411 Intermittent, no headache. - CONSULT TO OPHTHALMOLOGY 3. Snoring - ICD9: 786.09, ICD10: R06.83 He may need work up of obstructive sleep apnea with cognitiv e effects. Ernesto Bran MD Referring Provider: SELF [200] Allergies As of Date: 07/27/2018 Noted Allergy Reaction BUPROPION 05/18/2018 14 - Other: See Comments Comments: Flushing, numbness, tingling. Date Reviewed: 07/27/2018 Reviewed by: Deonna Rizzo LPN - Fully Assessed Reason for Visit: Recheck [92] Primary Visit Diagnosis:Memory disturbance [R41.3] Other Visit Diagnoses:Visual field scotoma of right eye [H53 .411] Snoring [R06.83] Order(s):CONSULT TO OPHTHALMOLOGY [9066] Order #: [id number] Qty: 1 Prescriptions as of 07/27/2018 Sig: FLUCONAZOLE 150 MG TABLET Take 150 mg by mouth. Take tw* ATORVASTATIN 40 MG TABLET Take 1 tablet by mouth daily MOMETASONE 0.1 % TOPICAL CREAM Apply 1 application to affect * METOPROLOL SUCCINATE ER 100 M* Take 1 tablet by mouth twice * NITROGLYCERIN 0.4 MG SUBLINGU* Dissolve 1 tablet under the t * IBUPROFEN 200 MG TABLET Take 800 mg by mouth every 6 * OMEPRAZOLE MAGNESIUM 20 MG TA* Take 2 tablets by mouth daily * Medication notes this encounter ATORVASTATIN 40 MG TABLET >> Deonna Rizzo LPN 07/27/2018 9:51 AM >> DEONNA RIZZO LPN FriJul 27, 2018 9:[address] Braxton Samuels, take Lipitor 40mg every other day until Diflucan course completed. Problem List As Of Date 07/27/2018 Noted Resolved HTN (hypertension) [I10] INVALID FOR*01/15/2013 Anxiety [F41.9] INVALID FOR*01/15/2013 Cervicalgia [M54.2] INVALID FOR*01/15/2013 Hyperlipidemia [E78.5] INVALID FOR* Erosive esophagitis [K22.10] INVALID FOR* Tobacco use disorder [F17.200] INVALID FOR* Syncope and collapse [R55] INVALID FOR*07/09/2016 Abnormal ECG [R94.31] INVALID FOR*05/18/2018 Family history of ischemic heart disease [Z82.4*INVALID FOR* Chest pain [R07.9] INVALID FOR*05/18/2018 Apical variant hypertrophic cardiomyopathy (HCC*INVALID FOR* HTN (hypertension) [I10] INVALID FOR* Obesity, Class II, BMI 35-39.9 [E66.9] INVALID FOR* Eczema [L30.9] INVALID FOR* Disposition: Return in about 2 months (around 09/26/2018), o r if symptoms worsen or fail to improve. Follow-up and Disposition History Recorded Questionnaire: PHQ-9 Little interest or pleasure in doing things -> 1 SEVERAL DAY S Feeling down, depressed, or hopeless -> 0 Trouble falling or staying asleep, or sleeping too much -> 1 Feeling tired or having little energy -> 1 Poor appetite or overeating -> 2 Cmt: overeating Feeling bad yourself-you are a failure or have let yourself or others -> 1 Trouble concentrating, like reading the paper or watching TV -> 1 Moving/speaking slowly (others notice) OR being more fidgety /restless -> 0 Thoughts that you would be better off or of hurting you rself -> 0 PHQ TOTAL SCORE = -> 7 PHQ problems effect on difficulty of work, home, and s ocial activity: -> 2 - SOMEWHAT DIFFICULT Encounter Status:Closed by ERNESTO BRAN MD on 8 progress on 2018-06 PROGRESS HNO ID: [id number] Normal 06-20-2018 [facility] Author: Ernesto Bran [place] ([id number]) Service: (none) Author Type: Physician Type: Progress Notes Filed: 06/19/2018 11:32 PM Note Text: This note was created using Virtusizeriter. Subjective Tyron Vazquez is a 37 year old male here for left upper arm pain radiating down to his left elbow that started one day after he had pneumovax. This affected his shoulder range of motion. He to ok some NSAID and was actually doing much better by this time. However, he also complained that his rash in the hands and f eet were worse on mometasone, blistering, itchy. He requested renewal of at orvastatin from cardiology. He had no side effects. Review of Systems Constitutional: Negative. Cardiovascular: Negative. Gastrointestinal: Negative. Musculoskeletal: Negative. Objective BP 118/70 (BP Site: Right Arm, BP Position: Sitting, BP Cuff Size: Large Adult) Pulse 72 Resp 16 Wt 128.8 kg (284 lb) BMI 39. 06 kg/m? Physical Exam Constitutional: No distress. Musculoskeletal: Left shoulder: Normal. He exhibits normal range of motion, n o tenderness, no swelling and normal strength. Left elbow: Normal. Skin: Discrete and confluent papules, vesicles with excoration dionisio ng sides of fingers and hands. Assessment and Plan 1. Pain of left upper extremity - ICD9: 729.5, ICD10: M79.60 2 (primary diagnosis) Post vaccination, resolved. 2. Other eczema - ICD9: 692.9, ICD10: L30.8 - Oral Steriod tx -Prednisone burst - discussed skin care of rash - follow up if symptoms persist or worsen. - Dry skin care instructions reviewed - Follow up if symptoms persist or worsen. - Referral to Dermatology for further management if not resp onding. - PREDNISONE 10 MG TABLET 3. Hyperlipidemia, unspecified hyperlipidemia type - ICD9: 2 72.4, ICD10: E78.5 - good control - Continue current medication. - ATORVASTATIN 40 MG TABLET Ernesto Bran MD cnov on 2018-06-18 CNOV Office Visit (INTMWS) Normal 06-18-[address] [place] [address] Clinic TYRON VAZQUEZ Brittany ([id number]) 1980 [facility] Date Time Provider Department ([id number]) 06/18/18 7:00 PM ERNESTO BRAN INTMWS During your visit today, we recorded the following informati on about you: Pulse Respiration Blood pressure Weight 72/minute 16/minute 118/70 128.8 kg Ernesto Bran MD 06/19/2018 11:32 PM Signed This note was created using Virtusizeriter. Subjective Tyron Vazquez is a 37 year old male here for left upper arm pain radiating down to his left elbow that started one day after he had pne umovax. This affected his shoulder range of motion. He took some NSAID an d was actually doing much better by this time. However, he also complained that his rash in the hands and feet were worse on mometasone, blistering, itchy. He requested renewal of atorv astatin from cardiology. He had no side effects. Review of Systems Constitutional: Negative. Cardiovascular: Negative. Gastrointestinal: Negative. Musculoskeletal: Negative. Objective BP 118/70 (BP Site: Right Ar m, BP Position: Sitting, BP Cuff Size: Large Adult) Pulse 72 Resp 16 Wt 128.8 kg (284 lb) BMI 39.06 kg/m ? Physical Exam Constitutional: No distress. Musculoskeletal: Left shoulder: Normal. He exhibits normal range of motion, n o tenderness, no swelling and normal strength. Left elbow: Normal. Skin: Discrete and confluent papul es, vesicles with excoration along sides of fingers and hands. Assessment and Plan 1. Pain of left upper extremity - ICD9: 729.5, ICD10: M79.60 2 (primary diagnosis) Post vaccination, resolved. 2. Other eczema - ICD9: 692.9, ICD10: L30.8 - Oral Steriod tx -Prednisone burst - discussed skin care of rash - follow up if symptoms persist or worsen. - Dry skin care instructions reviewed - Follow up if symptoms persist or worsen. - Referral to Dermatology for further management if not resp onding. - PREDNISONE 10 MG TABLET 3. Hyperlipidemia, unspecified hyperlipi demia type - ICD9: 272.4, ICD10: E78.5 - good control - Continue current medication. - ATORVASTATIN 40 MG TABLET Ernesto Bran MD Referring Provider: SELF [[id number]] Allergies As of Date: 06/18/2018 Noted Allergy Reaction BUPROPION 05/18/2018 14 - Other: See Comments Comments: Flushing, numbness, tingling. Date Reviewed: 06/18/2018 Reviewed by: Cornelius Keene - Fully Assessed Reason for Visit: left arm pain [Other] Primary Visit Diagnosis:Pain of left upper extremity [M79.60 2] Other Visit Diagnoses:Other eczema [L30.8] Hyperlipidemia, unspecified hyperlipidemia type [E78.5] Order(s):predniSONE (DELTASONE) 10 mg ta bletTake 4 tabs daily for 3 days, then 2 tabs daily for 3 days, then 1 tab daily for 3 days with fo od.Disp: 21 tabletRfl: 0 atorvastatin (LIPITOR) 40 mg tabletTake 1 tablet by mouth da ilyDisp: 90 tabletRfl: 3 Prescriptions as of 06/18/2018 Sig: ATORVASTATIN 40 MG TABLET Take 1 tablet by mouth daily MOMETASONE 0.1 % TOPICAL CREAM Apply 1 application to affect * METOPROLOL SUCCINATE ER 100 M* Take 1 tablet by mouth twice * NITROGLYCERIN 0.4 MG SUBLINGU* Dissolve 1 tablet under the t * IBUPROFEN 200 MG TABLET Take 800 mg by mouth every 6 * OMEPRAZOLE MAGNESIUM 20 MG TA* Take 2 tablets by mouth daily * PREDNISONE 10 MG TABLET Take 4 tabs daily for 3 days,* Problem List As Of Date 06/18/2018 Noted Resolved HTN (hypertension) [I10] INVALID FOR*01/15/2013 Anxiety [F41.9] INVALID FOR*01/15/2013 Cervicalgia [M54.2] INVALID FOR*01/15/2013 Hyperlipidemia [E78.5] INVALID FOR* Erosive esophagitis [K22.10] INVALID FOR* Tobacco use disorder [F17.200] INVALID FOR* Syncope and collapse [R55] INVALID FOR*07/09/2016 Abnormal ECG [R94.31] INVALID FOR*05/18/2018 Family history of ischemic heart disease [Z82.4*INVALID FOR* Chest pain [R07.9] INVALID FOR*05/18/2018 Apical variant hypertrophic cardiomyopathy (HCC*INVALID FOR* HTN (hypertension) [I10] INVALID FOR* Obesity, Class II, BMI 35-39.9 [E66.9] INVALID FOR* Eczema [L30.9] INVALID FOR* Prescriptions ordered this encounter Disp Refills Start End PREDNISONE 10 MG TABLET 21 t* 0 06/18/2018 06/27/2018 Sig: Take 4 tabs daily for 3 days, then 2 tabs daily for 3 days, then 1 tab daily for 3 days with food. ATORVASTATIN 40 MG TABLET 90 t* 3 06/18/2018 Sig: Take 1 tablet by mouth daily Medications Discontinued During This Encounter atorvastatin (LIPITOR) 40 mg tablet 06/10/2018 06/18/2018 Class: Med Update Sig: Take 1 tablet by mouth daily Disc: Reason for discontinue is not on file. Disposition: Return if symptoms worsen or fail to improve. Follow-up and Disposition History Recorded Encounter Status:Closed by ERNESTO BRAN MD on 06/19/18 urinalysis with microscopic on 2018-06-06 Bilirubin, Urine Negative Negative Normal 06-06-2018 Cl [facility] ([id number]) Comment: Performed By: #### UAWMIC ## ## [facility] [address] [place], [place] [address] Clarity (U) Clear Clear Normal 06-06-2018 [facility] ([id number]) Comment: Performed By: #### UAWMIC ## ## [facility] [address] [place] [id number] Color (U) Yellow Yellow Normal 06-06-2018 [facility] (77751) Comment: Performed By: #### UAWMIC ## ## [facility] [address] [place] [address] Comments SEE COMMENT Normal 06-06-2018 [facility] (97850) Comment: Result Comment: N/A Performed By: #### UAWMIC ## ## [facility] [place] [address] Epithelial cells LM.HPF SEE COMMENT Normal [facility] (Urine sed) [#/Area] [place] ([id number]) Comment: Result Comment: Few Squamous Epithelial Cells Performed By: #### UAWMIC ## ## [facility] [address] [place] [address] Glucose Ql (U) Negative Negative Normal 06-06-2018 [facility] (50354) Comment: Performed By: #### UAWMIC ## ## [facility] [address] [place] [address] Hemoglobin/Blood,Ur Negative Negative Normal 06-06-2018 [facility] ([id number]) Comment: Performed By: #### UAWMIC ## ## [facility] [address] [place] [id number] Ketones Ql (U) Negative Negative Normal 06-06-2018 [facility] ([id number]) Comment: Performed By: #### UAWMIC ## ## [facility] [address] [place] [address] Leukest Negative Negative Normal 06-06-2018 [facility] (32196) Comment: Performed By: #### UAWMIC ## ## [facility] [address] [place], [place] [address] Nitrite Ql (U) Negative Negative Normal 06-06-2018 [facility] (35769) Comment: Performed By: #### UAWMIC ## ## [facility] [place], [place] [address] pH (Bld) 6.0 4.5-8.0 Normal 06-06-2018 [facility] (59267) Comment: Performed By: #### UAWMIC ## ## [place] [address] Protein (U) [Mass/Vol] Negative Negative mg/dL Normal 018 [facility] (88804) Comment: Performed By: #### UAWMIC ## ## [place] [address] RBC (U) [#/Vol] 0-3 0-3 Normal 06-06-2018 [facility] (13008) Comment: Performed By: #### UAWMIC ## ## [place] [place] [address] [place], [place] [address] Specific [place], Ur 1.019 1.005-1.030 Normal 018 [facility] (95566) Comment: Performed By: #### UAWMIC ## ## [place] [address] [place], [place] [address] Urine [place] Comment SEE COMMENT Normal 06-06-2018 [facility] (39273) Comment: Result Comment: N/A Performed By: #### UAWMIC ## ## [facility] [place], [place] [address] Urobilinogen Qn (U) Normal Normal Normal 06-06-2018 [facility] (80359) Comment: Performed By: #### UAWMIC ## ## [facility] [address] WBC (Bld) [#/Vol] 0-5 0-5 Normal 06-06-2018 C [facility] (37784) Comment: Performed By: #### UAWMIC ## ## [place] [address] magnesium on 06-06 Magnesium [Mass/Vol] 2.1 1.7-2.3 mg/dL Normal 8 [facility] (23418) Comment: Performed By: #### CK, ALT, BMP, MG1, LIPB #### [place] [address] lipid panel, basic on 2018-06-06 Cholesterol [Mass/Vol] 222 <200 mg/dL High 018 [facility] (17334) Comment: Result Comment: <200 mg/dL, Desirable 200-239 mg/dL, Borderline hi gh >239 mg/dL, High Performed By: #### CK, ALT, BMP, MG1, LIPB #### [address] [address] Cholesterol in HDL [Mass/Vol] 29 >39 mg/dL Low 06-06-2018 [facility] (14445) Comment: Result Comment: 40-59 mg/dL, Acceptable >59 mg/dL, High: Negative ri sk factor for coronary heart disease <40 mg/dL, Low: Positive ris k factor for coronary heart disease Performed By: #### CK, ALT, BMP, MG1, LIPB #### [address] [address] Cholesterol in LDL 135 <100 mg/dL High 06-06-2018 [facility] [Mass/Vol] (28649) Comment: Result Comment: <100 mg/dL, Optimal 100-129 mg/dL, Near optimal/ above optimal 130-159 mg/dL, Borderline hi gh 160-189 mg/dL, High >189 mg/dL, Very high Secondary prevention optimal LDL Cholesterol levels are recommended to be < 70 mg/dL Performed By: #### CK, ALT, BMP, MG1, LIPB #### [facility] [address] [place] [address] Fasting Time 12 hrs Normal 06-06-2018 [facility] (52309) Comment: Performed By: #### CK, ALT, BMP, MG1, LIPB #### [place] [address] LDL:HDL Ratio 4.66 <2.54 High 06-06-2018 [facility] (73928) Comment: Result Comment: Reference: 1. National Cholesterol Educ ation Program ATP III Guideline At-A-Glance Quick Desk Reference: National Heart, Lung, and Blood [place]. National Institutes of Health. 2001: NIH Publication No. 01-3305. 2. An International Atherosc lerosis Society position paper: global recommendations for the management of dyslipidemia: executive summary, Atherosclerosis. 2014: 232(2):410-413. Performed By: #### CK, ALT, BMP, MG1, LIPB #### [place] [address] Non HDL Cholesterol 193 <130 mg/dL High 06-06-2018 [facility] (63644) Comment: Result Comment: <130 mg/dL, Optimal 130-159 mg/dL, Near optimal/ above optimal 160-189 mg/dL, Borderline hi gh 190-219 mg/dL, High >219 mg/dL, Very high Secondary prevention optimal non HDL Cholesterol levels are recommended to be < 100 mg/dL Performed By: #### CK, ALT, BMP, MG1, LIPB #### [place] [address] [place] [address] TC:HDL Ratio 7.66 <5.10 High 06-06-2018 [facility] (59022) Comment: Performed By: #### CK, ALT, BMP, MG1, LIPB #### [facility] [address] [place], [place] [address] Triglyceride [Mass/Vol] 291 <150 mg/dL High 2017 [facility] (39559) Comment: Result Comment: <150 mg/dL, Normal 150-199 mg/dL, Borderline hi gh 200-499 mg/dL, High >499 mg/dL, Very high Performed By: #### CK, ALT, BMP, MG1, LIPB #### [facility] [address] [place] [address] VLDL Cholesterol 58 <30 mg/dL High 06-06-2018 Cl [facility] (01828) Comment: Performed By: #### CK, ALT, BMP, MG1, LIPB #### [address] [address] ck on 2018-06-06 CK [Catalytic activity/Vol] 235 51-298 U/L Normal [facility] (56218) Comment: Result Comment: Please note the updated, gender-specific reference range for this test (effective 016). Performed By: #### CK, ALT, BMP, MG1, LIPB #### [address] [address] basic metabolic panl on 2018-06-06 Anion gap [Moles/Vol] 19 9-18 mmol/L High 06-06-20 18 [facility] (27756) Comment: Performed By: #### CK, ALT, BMP, MG1, LIPB #### [address] [address] Calcium [Mass/Vol] 9.5 8.5-10.2 mg/dL Normal 06-06-2018 [facility] (76445) Comment: Performed By: #### CK, ALT, BMP, MG1, LIPB #### [address] [place], [place] [id number] Chloride [Moles/Vol] 100 97-105 mmol/L Normal 8 [facility] (47492) Comment: Performed By: #### CK, ALT, BMP, MG1, LIPB #### [facility] [address] [place], [place] [address] CO2 [Moles/Vol] 22 22-30 mmol/L Normal 06-06-2018 [facility] (48027) Comment: Performed By: #### CK, ALT, BMP, MG1, LIPB #### [facility] [address] [place] [address] Creatinine [Mass/Vol] 1.35 0.73-1.22 mg/dL High 06-06-20 18 [facility] (88814) Comment: Performed By: #### CK, ALT, BMP, MG1, LIPB #### [place] [address] [place] [id number] eGFR- Amer. >60 Normal 06-06-2018 [facility] (66712) Comment: Performed By: #### CK, ALT, BMP, MG1, LIPB #### [facility] [address] [place], [place] [id number] GFR/1.73 sq M predicted among 59 . Normal 06-06-2018 [facility] non-blacks MDRD (S/P/Bld) [Vol (06584) rate/Area] Comment: Result Comment: eGFR (Estima claudette GFR) Units of measure: mL/min/1.73 meters squared eGFR is derived from the ree xpressed MDRD Study equation using the following parameters: serum creatinine, age, gender and race. The creatinine assay has been calibrated to be traceable to IDMS. An eGFR <60 mL/min/1.73m2 fo r >3 months is consistent with chronic kidney disease. Refer to KDOQI guidelines for clinical interpretation. In patients with unstable re nal function, e.g. those with acute kidney injury, the eGFR may not accurately reflect actual GFR. Performed By: #### CK, ALT, BMP, MG1, LIPB #### [facility] [address] [place] [id number] Glucose [Mass/Vol] 90 74-99 mg/dL Normal 06-06-2018 [facility] (70947) Comment: Result Comment: The Citizen [place] Diabetes Association (ADA) provides guidance for cutoff values for fasting glucose and random glucose. The ADA defines fasting as no caloric intake for at least 8 hours. Fas ting plasma glucose results between 100 to 125 mg/dL indicate increased risk for diabetes (prediabetes). Fasting plasma glucose resul ts greater than or equal to 126 mg/dL meet the criteria for diagnosis of diabetes. In the absence of unequivocal hyperglycemia, results should be confirmed by repeat testing. In a patient with classic s ymptoms of hyperglycemia or hyperglycemic crisis, random plasma glucose results greater than or equal to 200 mg/dL meet the criteria for diagnosis of diabetes. Reference: Standards of [facility] Care in Diabetes 2016, Citizen Of [place] Diabetes Association. Diabetes Care. 2016.39(Suppl 1). Performed By: #### CK, ALT, BMP, MG1, LIPB #### [facility] [address] [place] [id number] Potassium [Moles/Vol] 4.7 3.7-5.1 mmol/L Normal 06-06-20 18 [facility] ([id number]) Comment: Performed By: #### CK, ALT, BMP, MG1, LIPB #### [facility] [address] [place] [id number] Sodium [Moles/Vol] 141 136-144 mmol/L Normal 06-06-2018 [facility] (80555) Comment: Performed By: #### CK, ALT, BMP, MG1, LIPB #### [facility] [address] [place] [id number] Urea nitrogen [Mass/Vol] 15 9-24 mg/dL Normal 06-06 [facility] ([id number]) Comment: Performed By: #### CK, ALT, BMP, MG1, LIPB #### [facility] [address] [place], [place] [id number] alt on 2018-06-06 ALT [Catalytic activity/Vol] 43 10-54 U/L Normal 0 06-06-2018 [facility] (55092) Comment: Performed By: #### CK, ALT, BMP, MG1, LIPB #### [facility] [address] [place], [place] [address] progress on 2018-05 PROGRESS HNO ID: [id number] Normal 06-05-2018 [facility] Author: Kvng James [place] ([id number]) Service: (none) Author Type: Physician Type: Progress Notes Filed: 06/05/2018 9:18 AM Note Text: PERTINENT CARDIAC HISTORY Syncope - vasovagal? HOCM - variant Palpitations ADHERENCE TO GUIDELINES MARTIR-I or ARB for HF with prior LVEF<40 (NQF 0081) - N/A ASA or Plavix for ASHD (NQF 0067) - N/A Beta jim for ASHD with prior IA or prior LVEF<40 (NQF 00 70) - N/A Beta jim for HF with prior LVEF<40 (NQF 0083) - N/A MARTIR-I or ARB for ASHD with DM or prior LVEF<40 (NQF 0066) - N/A Statin therapy for ASHD or FHL or DM - N/A BMI documented and plan if >25 (NQF 0421) - lifestyle recomm endation form Tobacco use screening and referral (NQF 0028) - lifestyle re commendation form Recommendation for whole food, plant based diet - lifestyle recommendation form CLINICAL IMPRESSION/PLAN: Tyron Vazquez has significant apical hypertrophy but no recent demonstration of dynamic outflow tract obstruction. If he do es not tolerate high-dose metoprolol, the addition of verapamil wou ld be of possible benefit with respect to his palpitations. He's been advised to gradually change his dose of metoprolol to 200 milligrams ta romario as a single dose in the morning, which may help compliance. We had a long conversation regarding switching to plant base d diet and I have given him some additional information. He has no signs or symptoms of sleep apnea, but I've advised him to watch for this. He has been strongly advised to discontinue cigarettes. He will have a lipid profile and basic profile for follow-up of his drug therapy. He has been compliant with Lipitor. I will see him in 8 months or as needed. I advised him to ke chris in contact with me and give me an update periodically on his vital sign s and weight loss. Written and verbal health teaching given to patient, patient verbalizes understanding and agrees with treatment plan. DIAGNOSIS FOR VISIT: Hypertrophic cardiomyopathy Hypertension HISTORY OF PRESENT ILLNESS Tyron Vazquez returns for follow-up of his hypertrophic myopathy. He visited the hypertrophic clinic. His metoprolol was increase d to 200 milligrams daily. Weight loss was recommended. Holter monito r was ordered, but he was unable to afford as his insurance would not cover . He reports no recent chest pain. He has been taking metoprol ol 100 milligrams twice daily but sometimes misses the evening dose . He has concerns about the high dose and whether he will tolerate it . He is no longer taking verapamil. He has had minimal edema. His neck feels bigger than the pas t. He's had no recurrent syncope. He denies TIAs, amaurosis or claudication . His palpitations have improved. He has no symptoms of sleep apnea. ALLERGIES: ALLERGIES Allergen Reactions - Bupropion Other: See Comments Flushing, numbness, tingling. CURRENT OUTPATIENT MEDICATIONS: mometasone (ELOCON) 0.1 % cream Apply 1 application to affec claudette area once daily as needed. Rash of hands and feet. metoprolol succinate ER (TOPROL XL) 100 mg Tb24 Take 1 table t by mouth twice daily. atorvastatin (LIPITOR) 20 mg tablet Take 1 tablet by mouth o nce daily. nitroglycerin sublingual (NITROQUICK) 0.4 mg SL tablet Disso lve 1 tablet under the tongue as needed. for chest pain,every 5 min x3 ibuprofen (MOTRIN) 200 mg tablet Take 800 mg by mouth every 6 hours as needed (headaches.). Omeprazole Magnesium (PRILOSEC OTC) 20 mg tablet Take 2 tabl ets by mouth daily before breakfast. 1/2 hr before meal. PHYSICAL EXAMINATION: VITAL SIGNS: BP 133/86 Pulse 71 Wt 275 lb (124.7kg) Chest: Clear to percussion and auscultation. Trachea is midl ine. Air entry is equal. Cardiac: Regular rhythm. S1 and S2 are floyd l. PMI is nondisplaced. There are no murmurs, rubs or gallops. Carotid s are brisk without bruits. JVP is less than 10 cm. Abdomen: Soft and no ntender. There are no pulsatile masses or bruits. No liver enlargemen t. Bowel sounds are active. Extremities: No edema. Pulses are intact and symmetrical. His neck is thick, but there is no palpable roxie nopathy. There is no evidence of JVD. No thyroid enlargement is noted . Electronically Signed: Kvng James MD June 05, 2018 9:03 AM CC: Ernesto Bran MD cnov on 2018-06-05 CNOV Office Visit (CAWSTR) Normal 06-05-[address] [place] [address] [facility] TYRON VAZQUEZ ([id number]) 1980 [facility] Date Time Provider Department (06102) 06/05/18 8:30 AM KVNG JAMES CAWSTR During your visit today, we recorded the following informati on about you: Pulse Blood pressure Weight 71/minute 133/86 124.7 kg Kvng James MD 06/05/2018 9:18 AM Signed PERTINENT CARDIAC HISTORY Syncope - vasovagal? HOCM - variant Palpitations ADHERENCE TO GUIDELINES MARTIR-I or ARB for HF with prior LVEF<40 (NQF 0081) - N/A ASA or Plavix for ASHD (NQF 0067) - N/A Beta jim for ASHD with prior IA or prior LVEF<40 (NQF 00 70) - N/A Beta jim for HF with prior LVEF<40 (NQF 0083) - N/A MARTIR-I or ARB for ASHD with DM or prior LVEF<40 (NQF 0066) - N/A Statin therapy for ASHD or FHL or DM - N/A BMI documented and plan if >25 (NQF 0421) - lifestyle recomm endation form Tobacco use screening and referral (NQ 0028) - lifestyle recommendation form Recommendation for whole jeanine d, plant based diet - lifestyle recommendation form CLINICAL IMPRESSION/PLAN: Tyron Vazquez has significant apical hypertrophy but no recent demonstration of dynamic outflow tract obstruction. If he does not tolerate high-dose metoprolol, the addition of verapamil would be of possible benefit with respect to his palpitations. He's been advised to gra dually change his dose of metoprolol to 200 milligrams taken as a single dos e in the morning, which may help compliance. We had a long conversation regarding switching t o plant based diet and I have given him some additional information. He has no signs or symptoms of sleep apnea, but I've advised him to watch for this. He has been strongly advised to discontinue cigarettes. He will have a lipid profile and basic profile for follow-up of his drug therapy. He has been compliant with Lipitor. I will see him in 8 months or as needed. I advised him to keep in contact with me and give me an update periodically on his vital signs and weight loss. Written and verbal health teaching given to patient, patient verbalizes understanding and agrees with treatment plan. DIAGNOSIS FOR VISIT: Hypertrophic cardiomyopathy Hypertension HISTORY OF PRESENT ILLNESS Tyron Vazquez returns for follow-up of his hypertrophic myopathy. He visited the hypertrophic cli shandra. His metoprolol was increased to 200 milligrams daily. Weight loss was recommended. Holter monitor was order ed, but he was unable to afford as his insurance would not cover. He reports no recent chest pain. He has been saleem ing metoprolol 100 milligrams twice daily but sometimes misses the evening dose. He has concerns about the high dose and whether he will tolerate it. He is no lo nger taking verapamil. He has had minimal edema. His neck feels bigger than the pas t. He's had no recurrent syncope. He denies TIAs, amaur osis or claudication. His palpitations have improved. He has no symptoms of sleep apnea. ALLERGIES: ALLERGIES Allergen Reactions - Bupropion Other: See Comments Flushing, numbness, tingling. CURRENT OUTPATIENT MEDICATIONS: mometasone (ELOCON) 0.1 % cr eam Apply 1 application to affected area once daily as needed. Rash of hands and feet. metoprolol succinate ER (TOPROL XL) 100 mg Tb24 Take 1 tablet by mouth twice daily. atorvastatin (LIPITOR) 20 mg tablet Take 1 tablet by mouth o nce daily. nitroglycerin sublingual (NITROQUICK) 0. 4 mg SL tablet Dissolve 1 tablet under the tongue as needed. for chest pain,every 5 min x3 ibuprofen (MOTRIN) 200 mg tablet Take 800 mg by mouth every 6 hours as needed (headaches.). Omeprazole Magnesium (PRILOSEC OTC) 20 m g tablet Take 2 tablets by mouth daily before breakfast. 1/2 hr before meal. PHYSICAL EXAMINATION: VITAL SIGNS: BP 133/86 Pulse 71 Wt 275 lb (124.7kg) Chest: Clear to percussion and auscultation. Tra jack is midline. Air entry is equal. Cardiac: Regular rhythm. S1 and S2 are normal. PMI is nondisplaced. There are no murmurs, rubs or gallops. Carotids are brisk wi thout bruits. JVP is less than 10 cm. Abdomen: Soft and nontender. There are no pulsatile masses or bruits. No liver enlargement. Bowel sounds are act darlin. Extremities: No edema. Pulses are intact and symmetric al. His neck is thick, but there is no palpable adenopathy. There is no evide nce of JVD. No thyroid enlargement is noted. Electronically Signed: Kvng James MD June 05, 2018 9:03 AM CC: MD Kvng Rai MD 06/05/2018 9:04 AM Signed LIFESTYLE CHANGE A healthy lifestyle is the most important compon ent of your overall treatment plan. Please give serious thought to the followi ng areas and commit to making residential changes. EAT A WHOLE FOOD, PLANT BASED DIET The nutrition your body gets is more important than the medi cine you take. What matters most is the overall way you eat. We encourage you to minimize the use of animal products (which include dairy and all me ats except fatty fish) and use whole, unprocessed plant foods to provide your protein, vitamins and other nutrients. We have a lot of inform ation to share with you on this topic. This is not a diet. It is a way of life that you will keep with you. EXERCISE REGULARLY It is not important to spend hours in the gym, l ifting weights and perspiring heavily. A total of 2-3 hours per week of aerobic (causing y ou to be moderately short of breath) exercise is sufficient to improv e your health. Talk to us before you begin a new exercise progr am, if you have heart disease or experience shortness of breath or chest pain. REDUCE STRESS Chronic emotional and physical stress leads to disease. Ways of reducing stress include meditation, visualization, prayer, yoga and o ther forms of relaxation therapy. Consistency is the osorio. Find a techniq ue that works for you and do it every day. CULTIVATE RELATIONSHIPS Loneliness and isolation have a major negative impact on hea lth. Seek out others who can love, care for and nurture you. Avoid hurtf ul relationships. MAINTAIN IDEAL BODY WEIGHT The best way to do this is to do all the things above. Our bodies naturally find the right weight if we keep moving and feed ourselves the right food. If your BMI is greater than 25, we strongly recommend a referra l to a weight management program. Please speak to us or your family physic adam about available programs. AVOID NICOTINE IN ALL FORMS This includes all tobacco pr oducts, whether chewed, smoked, vaped, or rubbed on the skin. Smoking cessation programs, which can make use of tobacco substitutes, medications to suppress cravings and behavior m anagement, are available. Please contact your family physician about programs in your area. Referring Provider: KVNG JAMES [[id number]] Allergies As of Date: 06/05/2018 Noted Allergy Reaction BUPROPION 05/18/2018 14 - Other: See Comments Comments: Flushing, numbness, tingling. Date Reviewed: 06/05/2018 Reviewed by: Rosanne Coats RN - Fully Assessed Reason for Visit: Follow Up [171] Cmt: 6 month f/u HOCM Primary Visit Diagnosis:HOCM (hypertrophic obstructive cardiomyopathy) (HCC) [I42.1] Other Visit Diagnosis:Essential hypertension [I10] Order(s):LIPID PANEL BASIC [SQLIPB] Order #: [id number] FUTU RE ALT/SGPT [SQALT] Order #: [id number] FUTURE CK CREATINE KINASE [SQCK] Order #: [id number] FUTURE BMP PLUS FHC [SQPICBMP] Order #: [id number] FUTURE Prescriptions as of 06/05/2018 Sig: MOMETASONE 0.1 % TOPICAL CREAM Apply 1 application to affect * METOPROLOL SUCCINATE ER 100 M* Take 1 tablet by mouth twice * ATORVASTATIN 20 MG TABLET Take 1 tablet by mouth once d* NITROGLYCERIN 0.4 MG SUBLINGU* Dissolve 1 tablet under the t * IBUPROFEN 200 MG TABLET Take 800 mg by mouth every 6 * OMEPRAZOLE MAGNESIUM 20 MG TA* Take 2 tablets by mouth daily * Problem List As Of Date 06/05/2018 Noted Resolved HTN (hypertension) [I10] INVALID FOR*01/15/2013 Anxiety [F41.9] INVALID FOR*01/15/2013 Cervicalgia [M54.2] INVALID FOR*01/15/2013 Hyperlipidemia [E78.5] INVALID FOR* Erosive esophagitis [K22.10] INVALID FOR* Tobacco use disorder [F17.200] INVALID FOR* Syncope and collapse [R55] INVALID FOR*07/09/2016 Abnormal ECG [R94.31] INVALID FOR*05/18/2018 Family history of ischemic heart disease [Z82.4*INVALID FOR* Chest pain [R07.9] INVALID FOR*05/18/2018 Apical variant hypertrophic cardiomyopathy (HCC*INVALID FOR* HTN (hypertension) [I10] INVALID FOR* Obesity, Class II, BMI 35-39.9 [E66.9] INVALID FOR* Eczema [L30.9] INVALID FOR* Other instructions from your clinician: LIFESTYLE CHANGE A healthy lifestyle is the most important component of your overall treatment plan. 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 EAT A WHOLE FOOD, PLANT BASED DIET The nutrition your body gets is more important than the medi cine you take. What matters most is the overall way you eat. We encourage y ou to minimize the use of animal products (which include dairy and all meats except fatty fish) and use whole, unprocessed plant foods to provide your protein, vitamins and other nutrients. We have a lot of info rmation to share with you on this topic. This is not a diet. It is a way of life that you will keep with you. EXERCISE REGULARLY It is not important to spend hours in the gym, lifting weigh ts and perspiring heavily. A total of 2-3 hours per week of aerobic (causing you to be moderately short of breath) exercise is sufficient to improve your health. Talk to us before you begin a new exercise program, if you have heart disease or experience shortness of breath or chest silva n. REDUCE STRESS Chronic emotional and physical stress leads to disease. Ways of reducing stress include meditation, visualization, prayer, yoga and o ther forms of relaxation therapy. Consistency is the osorio. Find a technique that works for you and do it every day. CULTIVATE RELATIONSHIPS Loneliness and isolation have a major negative impact on hea lth. Seek out others who can love, care for and nurture you. Avoid hurtful relationships. MAINTAIN IDEAL BODY WEIGHT The best way to do this is to do all the things above. Our b odies naturally find the right weight if we keep moving and feed o urselves the right food. If your BMI is greater than 25, we strongly tish mmend a referral to a weight management program. Please speak to us or your family physician about available programs. AVOID NICOTINE IN ALL FORMS This includes all tobacco products, whether chewed, smoked, vaped, or rubbed on the skin. Smoking cessation programs, which can ma ke use of tobacco substitutes, medications to suppress cravings and be havior management, are available. Please contact your family physic adam about programs in your area. Encounter Status:Closed by KVNG JAMES MD on 06/05/18 progress on 2018-01 PROGRESS HNO ID: [id number]: Kvng adorno 01-09-2018 [place] Jacques ShaferService: (none)Author Type: Medical Center PhysicianType: Progress NotesFiled: ([id number]) 01/09/2018 6:11 PMNote Text:PERTINENT CARDIAC HISTORYSyncope - vasovagal?HOCM - variantPalpitationsADHERENCE TO GUIDELINESACE-I or ARB for HF with prior LVEF<40 (NQF 0081) - N/AASA or Plavix for ASHD (NQF 0067) - N/ABeta jim for ASHD with prior IA or prior LVEF<40 (NQF 0070) - N/ABeta jim for HF with prior LVEF<40 (NQF 0083) - N/AACE-I or ARB for ASHD with DM or prior LVEF<40 (NQF 0066) - N/AStatin therapy for ASHD or FHL or DM - N/ABMI documented and plan if >25 (NQF 0421) - lifestyle recommendation formTobacco use screening and referral (NQF 0028) - lifestyle recommendationformRecommendation for whole food, plant based diet - lifestyle recommendationformCLINICAL IMPRESSION/PLAN:Tyron Vazquez has progressive exercise intolerance. His stress testwas suggestive of ischemia. Angiography is suboptimal. There is no grossevidence of obstructive coronary disease and his prior cath showed nodisease. His EKG changes are probably related to his hypertrophy.He was not reevaluated in the hypertrophic myopathy clinic and a thiswould be an opportune time to do so. His images can be reviewed.Additional angiographic images can be ordered if it is felt that they arewarranted. [place] he's been advised to discontinue verapamil and increasemetoprolol to 100 milligrams in the morning and 50 milligrams in theevening.Basic profile will be reviewed repeated to make sure that his renalfunction has improved.I've asked him to contact me with vital signs and symptom report nextmonth. Lipid profile will be checked after he has been on Lipitorconsistently for a few more weeksWritten and verbal health teaching given to patient, patient verbalizesunderstanding and agrees with treatment plan.DIAGNOSIS FOR VISIT:Card and myopathyHISTORY OF PRESENT ILLNESSTyron Vazquez returns for discussion of his recent evaluation. Hereports that his exercise tolerance is still limited and clearly differentthan it was last year. He has had no recent chest discomfort. He reportsthat he is short of breath walking up a flight of steps.. He deniesorthopnea. He's had minimal edema. He has had no syncope, palpitations,TIAs, amaurosis or claudication.He has now been taking his Lipitor. He increased his beta jim asrecommended and continues to take his verapamil. She states that hissymptoms have not improved with the increased dose of metoprolol.He underwent stress test which suggested some inferoapical ischemia. Hisejection fraction was noted to be 50%. He was referred for angiography.This was carried out from a radial approach. Opacification of thecoronaries was suboptimal, but it was reviewed by 2 interventionalcardiologists and felt to be adequate to exclude high-grade LAD disease.These images have been uploaded into Pixium VisionERGIES:ALLERGIESNo Known AllergiesCURRENT OUTPATIENT MEDICATIONS:atorvastatin (LIPITOR) 20 mg tablet Take 1 tablet by mouth once daily.nitroglycerin sublingual (NITROQUICK) 0.4 mg SL tablet Dissolve 1 tabletunder the tongue as needed. for chest pain,every 5 min y4amecbhtcll succinate ER (TOPROL XL) 50 mg 24 hr tablet Take 2 tablets bymouth once daily.verapamil SR (CALAN SR, ISOPTIN SR) 120 mg CR tablet Take 1 tablet bymouth daily at bedtime.ibuprofen (MOTRIN) 200 mg tablet Take 800 mg by mouth every 6 hours asneeded (headaches.).Omeprazole Magnesium (PRILOSEC OTC) 20 mg tablet Take 2 tablets by mouthdaily before breakfast. 1/2 hr before meal.PHYSICAL EXAMINATION:VITAL SIGNS: BP 120/76 Pulse 72 Ht 5' 11 (1.80m) Wt 285 lb 11.2 oz(129.6kg) BMI 39.86 kg/(m2).Chest: Clear to percussion and auscultation. Trachea is midline. Airentry is equal. Cardiac: Regular rhythm. S1 and S2 are normal. PMI isnondisplaced. There is a 2/6 systolic ejection murmur which increaseswith Valsalva. There is a soft S4 gallop. Carotids are brisk withoutbruits. JVP is less than 10 cm. Abdomen: Soft and nontender. There areno pulsatile masses or bruits. No liver enlargement. Bowel sounds areactive. Extremities: No edema. Pulses are intact and symmetrical.Results of stress test and angiography are as noted above.Recent labs were reviewed. Creatinine had increased to 1.6. LDL was 165,prior to restarting Lipitor.Electronically Signed:Geetha Saleh 2017 9:24 [facility]: MD anibal Rai on 2018-01-09 CNOV Office Visit Normal 01-09-2018 [place] (AGCARDWST) TYRON VAZQUEZ ([id number]) 1980 M Date Time Provider Department01/09/18 9:00 AM KVNG JAMES During Medical your visit today, we recorde d the following information about you: Pulse Blood pressure Weight Height Cente r 72/minute 120/76 129.6 kg 1. 803 Shelton James MD 01/09/2018 6:11 PM SignedPERTINENT CARDIAC (000 00) HISTORYSyncope - vasovagal?H OCM - variantPalpitationsADHERENCE TO GUIDELINESACE-I or ARB for HF with prior LVEFANDlt;40 (NQF 0081) - N/ AASA or Plavix for ASHD (NQF 0067) - N/ABeta jim for ASHD with prior IA or prior LVEFANDlt;40 (NQF 0070 ) - N/ABeta jim for HF with prior LVEFANDlt;40 (NQF 0083) - N/AACE-I or ARB for ASHD with DM or prior LV EFANDlt;40 (NQF 0066) - N/AStatin therapy for ASHD or FHL or DM - N/ABMI documented and plan if ANDgt ;25 (NQF 0421) - lifestyle recommendation formTobacco use screening and referral (NQF 0028) - lifest yle recommendation formRecommendation for whole food, plant based diet - lifestyle recommendation for mCLINICAL IMPRESSION/PLAN:Tyron Vazquez has progressive exercise intolerance. His stress test wassuggestive of ischemia. Angiography is suboptimal. There is no gross evidenceof obstructive coron eva disease and his prior cath showed no disease. His EKGchanges are probably related to his hypertrophy.Jeffry jose was not reevaluated in the hypertrophic myopathy clinic and a this would aceves opportune time to do so. His images can be reviewed. Additional angiographicimages can be ordered if it is felt that they are warranted . I will review [place]angi[place] from [place], [place]In the meantime he's been advised t o discontinue verapamil and increasemetoprolol to 100 milligrams in the morning and 50 milligrams in the celina tiesha.Basic profile will be reviewed repeated to make sure that his renal functionhas improved.I've as ked him to contact me with vital signs and symptom report next month.Lipid profile will be checked afte r he has been on Lipitor consistently for afew more weeksWritten and verbal health teaching given to luz maria horowitz, patient verbalizesunderstanding and agrees with treatment plan.DIAGNOSIS FOR VISIT:Card and myopathyH ISTORY OF PRESENT ILLNESSPhilip Brittany Vazquez returns for discussion of his recent evaluation. He reportsthat h is exercise tolerance is still limited and clearly different than it waslast year. He has had no recent c hest discomfort. He reports that he is shortof breath walking up a flight of steps.. He denies orthopnea. He's had minimaledema. He has had no syncope, palpitations, TIAs, amaurosis or claudication.He has now been taking his Lipitor. He increased his beta jim asrecommended and continues to take his verapamil. She s tates that his symptomshave not improved with the increased dose of metoprolol.He underwent stre ss test which suggested some inferoapical ischemia. Hisejection fraction was noted to be 50%. He was refe rred for angiography. Thiswas carried out from a radial approach. Opacification of the coronaries wassubopti mal, but it was reviewed by 2 interventional cardiologists and felt renu adequate to exclude high-gra de LAD disease. These images have been uploadedinto Pixium VisionERGIES:ALLERGIESNo Known AllergiesCURRENT OUTPA TIENT MEDICATIONS:atorvastatin (LIPITOR) 20 mg tablet Take 1 tablet by mouth once daily.nitroglycerin sub lingual (NITROQUICK) 0.4 mg SL tablet Dissolve 1 tablet underthe tongue as needed. for chest pain,every 5 min v1mbdftirjxz succinate ER (TOPROL XL) 50 mg 24 hr tablet Take 2 tablets by mouthonce daily.verapamil SR (CALAN SR, ISOPTIN SR) 120 mg CR tablet Take 1 tablet by mouthdaily at bedtime.ibuprofen (MOTRIN) 200 mg tablet Take 800 mg by mouth every 6 hours as needed(headaches.).Omeprazol e Magnesium (PRILOSEC OTC) 20 mg tablet Take 2 tablets by mouth dailybefore breakfast. 1/2 hr before shira l.PHYSICAL EXAMINATION:VITAL SIGNS: BP 120/76 Pulse 72 Ht 5' 11ANDquot; (1.80m) Wt 285 lb 11.2 oz( 129.6kg) BMI 39.86 kg/(m2).Chest: Clear to percussion and auscultation. Trachea is midline. Air entr y isequal. Cardiac: Regular rhythm. S1 and S2 are normal. PMI is nondisplaced.There is a 2/6 systolic ejection murmur which increases with Valsalva. There tali soft S4 gallop. Carotids are brisk w ithout bruits. JVP is less than 10 cm. Abdomen: Soft and nontender. There are no pulsatile masses or bruit s. Noliver enlargement. Bowel sounds are active. Extremities: No edema. Pulsesare intact and symmetr ical.Results of stress test and angiography are as noted above.Recent labs were reviewed. Creatinine had inc reased to 1.6. LDL was 165, priorto restarting Lipitor.Electronically Signed:Kvng James MD January 09, 2018 9:24 [facility]: Ernesto Bran, MDReferring Provider: KVNG JAMES [[id number]]Allergies A s of Date: 01/09/2018(No Known Allergies)Date Reviewed: 01/09/2018Reviewed by: Katja García for Visit: Follow Up [171]Primary Visit Diagnosis:HOCM (hypertrophic obstructive ca rdiomyopathy) ([facility]) [I42.1]Order(s):BASIC METABOLIC PNL [SQBMP] Order #: [id number] FUTURE metoprolol succinate ER (TOPROL XL) 50 mg 24 hr tabletTake 100 mg in the AM and 50 mg in the PMDisp: 100 tabletRfl: 1 1Prescriptions as of 01/09/2018 Sig: METOPROLOL SUCCINATE ER 50 MG* Take 100 mg in the AM and 50 * ATORVASTA TIN 20 MG TABLET Take 1 tablet by mouth once d* NITROGLYCERIN 0.4 MG SUBLINGU* Dissolve 1 tablet under the t* IBUPROFEN 200 MG TABLET Take 800 mg by mouth every 6 * OMEPRAZOLE MAGNESIUM 20 MG TA* Take 2 tablets by mouth daily*Problem List As Of Date 01/09/2018 Noted Resolved HTN (hypertension) [I10] INVALID FOR*01/15/2013 Anxiety [F41.9] INVALID FOR*01/15/2013 Cervicalgia [M54.2] INVALID FOR*01/15/2013 Hyper lipidemia [E78.5] INVALID FOR* Erosive esophagitis [K22.10] INVALID FOR* Tobacco use disorder [F17.20 0] INVALID FOR* Syncope and collapse [R55] INVALID FOR*07/09/2016 Abnormal ECG [R94.31] INVALID FOR* Family history of ischemic heart disease [Z82.4*INVALID FOR* Chest pain [R07.9] INVALID FOR* Apical variant hypertrophic cardiomyopathy (HCC*INVALID FOR* HTN (hypertension) [I10] INVALID FOR*Prescriptions ordered th is encounter Disp Refills Start End METOPROLOL SUCCINATE ER 50 MG TABLET* 100 * 11 01/09/2018 Sig: Take 100 mg in the AM and 50 mg in the PMMedications Discontinued During This Encounter verapamil SR (CALAN SR, ISOP TIN SR) * 90 t* 3 08/29/2017 01/09/2018 Cmt: Please consider 90 day supplies to promote better adherence Rou te: ORAL Sig: Take 1 tablet by mouth daily at bedtime. Disc: Reason for discontinue is not on file. metoprolol succinate ER (TOPROL XL) * 12/01/2017 01/09/2018 Class: Med Update Route: ORAL Sig: Take 2 tabl ets by mouth once daily. Disc: Reason for discontinue is not on file. Status:Closed by KVNG JAMES MD on 01/09/18 xr chest 2v frontal/lat on 2017-12-17 XR CHEST 2V * * *Final Report* * *DATE OF Normal 12-17-2017 [place] FRONTAL/LAT EXAM: Dec 17 2017 6:05PM [facility] [id number] [facility] - XR CHEST 2V FRONTAL/LAT / ([id number]) REASON: I25.10-Atherosclerotic heart disease of [place] coronary artery without angina pe * * * * Physician Interpretation * * * * EXAMINATION: CHEST RADIOGRAPH (2 VIEW FRONTAL and LATERAL)Clinical History: Atherosclerotic heart disease of [place] coronary artery without angina pectorisMQ: XC2_4Comparison: 3-5-08HQVCVLY:Lines, tubes, and devices: None.Lung parenchyma and pleura: Lungs clear. No pleural fluid or pneumothorax.Thoracic inlet, heart, and mediastinum: Heart, mediastinum and pulmonary vessels unremarkable.Other: Upper abdomen unremarkable. No free air beneath diaphragm. No fracture.No significant change.IMPRESSION: No acute abnormality.Seal Mixing Operator: DANG Transcribe Date/Time: Dec 17 2017 6:13PDictated by : ANN MARIE ESTRELLA MDThis examination was interpreted and the report reviewed and electronically signed by: ANN MARIE ESTRELLA MD on Dec 17 2017 6:13PM [id number] cnpn on 2017-12-16 CNPN Telephone Normal 12-16-2017 [place] (AGCARDWST) TYRON VAZQUEZ ([id number]) 1980 Date Time Provider Department12/16/17 KVNG JAMES AGCARDWST During your Medical visit today, we recorded the following information about you:John Orozco RN, RN 12/16/2017 8:51 AM Center SignedNST report from [facility] (0 3-18) in folder for review, thank you.Kvng James MD 12/16/2017 4:14 ( [id number]) PM SignedStress test suggest ed maybe significant blockage in one of 3 blood vessels. Heis having chest discomfort and has had a sig nificant decrease in exercisetolerance. I recommend that he have an angiogram to make sure we understandco mpletely what is going on with his heart function and circulation. [facility]. If he is willing, please getappropriate labs and make the referral to Dr. Rose. I hav e called in aprescription for nitroglycerin. Please instruct him in its use.Ori Saleh, RN, RN 12/16/2017 4:17 PM SignedLeft generic msg for patient to return call.John Orozco RN, RN 12/04 4:24 PM SignedPatient verbalizes understanding, please review orders, he states that he wouldprefer t o have cath done at [place]. I let him know that we have had sometrouble getting caths scheduled at [place] in the past, but I would see what youthink.Kvng James MD 12/16/2017 4:27 PM SignedMed[facility] cannot do a stent if he needs one. [facility].Kvng James, Rubens Orozco RN, RN 12/16/2017 4:36 PM SignedPatient agreeable to going to [facility], please review orders, he will have them donetomorrow.John Orozco RN, RN 12/17/2017 9:37 AM SignedLeft msg for Jacque at [facility] Center and spoke to nurse Nancy that wewanted to set patient up for cath. Faxed demographics , OV note, copy of thisnote, ECG, insurance cards to [phone]. Will forward CXR and lab work whenpatient has them done.John Orozco RN, RN 12/18/2017 8:19 AM SignedCXR and recent labs faxed to [facility] @ [phone].Allergies As of Date: 12/16/2017(No Known Allergies)Date Reviewed: 12/01/2017Reviewed by: John Orozco RN - Fully AssessedReason for Visit: Outside Testing [1202] Cmt: NSTPrimary Visit Diagnosis:ASHD (arteriosclerotic heart disease) [I25.10]Order(s):nitroglycerin sublingual (NITROQUICK) 0.4 mg SL tabletDissolve 1 tablet under the tongue as needed. for chest pain,every 5 min x3Disp: 1 Bottle of 25 Rfl: 3 XR CHEST 2V FRONTAL/LAT [3087363] Order #: [id number] FUTURE CBC [SQCBC] Order #: [id number] FUTURE B ASIC METABOLIC PNL [SQBMP] Order #: [id number] FUTURE PROTHROMBIN TIME/PT [SQPT] Order #: [id number] F UTUREPrescriptions as of 12/16/2017 Sig: NITROGLYCERIN 0.4 MG SUBLINGU* Dissolve 1 tablet under the t* METOPROLOL SUCCINATE ER 50 MG* Take 2 tablets by mouth once * VERAPAMIL ER (SR) 120 MG TABL* Take 1 tab let by mouth daily * IBUPROFEN 200 MG TABLET Take 800 mg by mouth every 6 * OMEPRAZOLE MAGNESIUM 20 MG T A* Take 2 tablets by mouth daily*Problem List As Of Date 12/16/2017 Noted Resolved HTN (hypertension) [I10] INVALID FOR*01/15/2013 Anxiety [F41.9] INVALID FOR*01/15/2013 Cervicalgia [M54.2] INVALID FOR*01/16/20 13 Hyperlipidemia [E78.5] INVALID FOR* Erosive esophagitis [K22.10] INVALID FOR* Tobacco use disorder [F 17.200] INVALID FOR* Syncope and collapse [R55] INVALID FOR*07/09/2016 Abnormal ECG [R94.31] INVALID FOR* Jorden perezy history of ischemic heart disease [Z82.4*INVALID FOR* Chest pain [R07.9] INVALID FOR* Apical variant hypertrophic cardiomyopathy (HCC*INVALID FOR* HTN (hypertension) [I10] INVALID FOR*Prescriptions ordered th is encounter Disp Refills Start End NITROGLYCERIN 0.4 MG SUBLINGUAL TABL* 1 [place]* 3 12/16/2017 Route: SUBLINGU AL Sig: Dissolve 1 tablet under the tongue as needed. for chest pain,every 5 min [id number] Number: [id number] Status:Closed by JOHN OROZCO on 12/17/17 progress on 2017-11 PROGRESS HNO ID: [id number] Normal 12-01-2017 Timothy Jacques Author: [facility] Service: (none) (000 00) Author Type: (none) Type: Progress Notes Filed: 12/01/2017 6:05 PM Note Text: Patient is scheduled for a NST at [facility] on December 15, 2017 at 6 :00 AM PROGRESS HNO ID: [id number]: Kvng adorno 12-01-2017 Timothy GarridoferService: (none)Author Type: Medical Center PhysicianType: Progress NotesFiled: ([id number]) 12/01/2017 6:05 PMNote Text:PERTINENT CARDIAC HISTORYSyncope - vasovagal?HOCM - variantPalpitationsADHERENCE TO GUIDELINESACE-I or ARB for HF with prior LVEF<40 (NQF 0081) - N/AASA or Plavix for ASHD (NQF 0067) - N/ABeta jim for ASHD with prior IA or prior LVEF<40 (NQF 0070) - N/ABeta ijm for HF with prior LVEF<40 (NQF 0083) - N/AACE-I or ARB for ASHD with DM or prior LVEF<40 (NQF 0066) - N/AStatin therapy for ASHD or FHL or DM - N/ABMI documented and plan if >25 (NQF 0421) - lifestyle recommendation formTobacco use screening and referral (NQF 0028) - lifestyle recommendationformRecommendation for whole food, plant based diet - lifestyle recommendationformCLINICAL IMPRESSION/PLAN:Tyron Vazquez has had recent exacerbation of hypertension, relatedpartly to noncompliance. It has been stressed to him that with hiscardiomyopathy, he must keep his blood pressure under good control. Hespecifically should not ever discontinue his beta jim acutely.I've advised him to continue his current medications for the time beingand have his blood pressure cuff checked to make sure that it iscalibrated well. His heart rate should be checked during his sensation ofpalpitations. I've encouraged him to have a lipid profile done.We discussed appropriate exercise, which would be aerobic. He voicesanxiety about proceeding in the presence of decreased exercise toleranceand with chest discomfort. I recommended that we have a treadmill nuclearstress test done. This will be done on medication. Imaging study isnecessary because of his resting ST-T changes.I will see him in 6 months or as needed. He's been advised to considergoing back to HOCM clinic and to have his children evaluated for possiblepositive phenotype.Written and verbal health teaching given to patient, patient verbalizesunderstanding and agrees with treatment plan.This note was generated using [employer] recognition system, and theremay be some incorrect words, spellings, and punctuation that were notnoted in checking the note before saving.DIAGNOSIS FOR VISIT:Chest painHOCMVasovagal syncopeHISTORY OF PRESENT ILLNESSTyron Vazquez returns for follow-up of his variant HOCM . He reportsthat he has had intermittent episodes of chest tightness . He has noteddecreased exercise tolerance. The discomfort in the chest is decreasedsomewhat by stretching but there has been a clear change in his energylevel. He reports that his heart rate goes up very quickly with minimalactivity.He had recent elevated blood pressure to 210 over 136, associated with aheadache. He was seen in primary care. By that time his blood pressure andheadache had improved. He has been out of his medications. He is now backon them. He reports blood pressures now in the 150 over 100 range.He has noted occasional palpitations lasting 10-15 minutes. He describesskipping but no sustained tachycardia.He's had no edema, TIAs, amaurosis or claudication. He's had no recurrentsyncope.He reports that he never got genetic testing. His family members have notbeen referred for evaluation.ALLERGIES:ALLERGIESNo Known AllergiesCURRENT OUTPATIENT MEDICATIONS:metoprolol succinate ER (TOPROL XL) 50 mg 24 hr tablet Take 1 tablet bymouth once daily.verapamil SR (CALAN SR, ISOPTIN SR) 120 mg CR tablet Take 1 tablet bymouth daily at bedtime.ibuprofen (MOTRIN) 200 mg tablet Take 800 mg by mouth every 6 hours asneeded (headaches.).Omeprazole Magnesium (PRILOSEC OTC) 20 mg tablet Take 2 tablets by mouthdaily before breakfast. 1/2 hr before meal.PAST MEDICAL HISTORYDiagnosis Date- Abnormal EKG marked T wave inversions.- Anxiety 07/11/2009- CAD (coronary artery disease) 2016 minimal CAD per 08/2016 cath.- Cervicalgia 06/29/2010- Erosive esophagitis 12/14/2012- Family history of sudden cardiac father suddenly at age 57- GI bleed 2012 in ~2012; treated with antibiotics.- Headache(784.0)- Heart murmur 2008 known since ~2008.- Herpes zoster 02/04/2011- HTN (hypertension) 07/11/2009- Hyperlipidemia 07/30/2010- Hypertrophic cardiomyopathy (HCC) 2008 Apical variant form of HCM noted 2015. LVOT obstruction noted 2008.- Syncope in the past attributed to vasovagal syncope.- Tobacco use disorderPAST SURGICAL HISTORYProcedure Laterality Date- COLONOSCOP W/ OR W/O BRSH SPEC 03/24/13 Colonoscopy- EGD W/O OR W/BRUSH/WASH 12/10/2012 EGD- LEFT HEART CATH 2009- LEFT HEART CATH,PERCUTANEOUS 08/07/2016FAMILY HISTORYProblem Relation Age of Onset- Other [OTHER] Mother Living age 55, healthy.- Heart Father age 57 of ?heart attack with h/o illicit drug use. H/o HTN, HPL,diabetes, kidney disease. CAD s/p CABG at age 53, s/p stents at age 55.- Coronary Artery Disease Paternal Grandfather age 70s of [place]. H/o [place], pacemaker, HTN.- Diabetes Paternal Grandmother age 80s. H/o diabetes, HTN.- Hypertension Paternal Grandmother- Other [OTHER] Brother Two half-brothers. 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 Alcohol use: Yes Comment: 2 drinks per month. Drug use: No Sexual activity: Yes Partners with: FemaleOther Topics ConcernMilitary Service NoBlood Transfusions NoCaffeine Concern Yes Comment:5 cups dailyOccupational Exposure NoHobby Hazards NoSleep Concern NoStress Concern NoWeight Concern NoSpecial Diet NoBack Care YesExercise NoBike Helmet NoSeat Belt YesSelf-Exams NoREVIEW OF SYSTEMS: General: No chills, fever, weight loss, night sweats. Respiratory: No productive cough. Cardiac: As noted above. GI: Nomelena. : No dysuria. Musculoskeletal: No myalgias.PHYSICAL EXAMINATION: S/he is alert and in no distress.VITAL SIGNS: BP 156/100 Pulse 84 Ht 5' 11 (1.80m) Wt 283 lb 8 oz(128.6kg) BMI 39.56 kg/(m2).SHEENT: Skin is warm and dry. No xanthelasmas appreciated. Pharynx isbenign. There is no oral cyanosis. Neck: supple. No adenopathy orthyroid enlargement. Chest: Clear to percussion and auscultation.Trachea is midline. Air entry is equal. There is no chest walltenderness. Cardiac: Regular rhythm. S1 and S2 are normal. PMI isnondisplaced. There is a 2/6 systolic ejection murmur which increasessomewhat with Valsalva. There is a soft S4 gallop. No click is heard.Carotids are brisk without bruits. JVP is less than 10 cm. Abdomen: Softand nontender. There are no pulsatile masses or bruits. No liverenlargement. Bowel sounds are active. Extremities: No edema. Pulsesare intact and symmetrical. No clubbing or cyanosis. No femoral bruits.Neurologic: Grossly normal motor and sensory. S/he is alert and orientedx4.Recent EKG showed no significant change. There is marked repolarizationabnormality.Recent labs were reviewed. Renal function is normal.Electronically Signed:Kvng James MDFebruary 2017 8:59 [facility]:Ernesto Bran MD cnov on 2017-12-01 CNOV Office Visit Normal 12-01-2017 Timothy (AGCARDWST) TYRON VAZQUEZ ([id number]) 1980 M Date Time Provider Department12/01/17 8:30 AM KVNG JAMES During Medical your visit today, we recorde d the following information about you: Pulse Blood pressure Weight Height Cente r 84/minute 156/100 128.6 kg 1 .803 Shelton James MD 12/01/2017 6:05 PM SignedPERTINENT CARDIAC (000 00) HISTORYSyncope - vasovagal?H OCM - variantPalpitationsADHERENCE TO GUIDELINESACE-I or ARB for HF with prior LVEFANDlt;40 (NQF 0081) - N/ AASA or Plavix for ASHD (NQF 0067) - N/ABeta jim for ASHD with prior IA or prior LVEFANDlt;40 (NQF 0070 ) - N/ABeta jim for HF with prior LVEFANDlt;40 (NQF 0083) - N/AACE-I or ARB for ASHD with DM or prior LV EFANDlt;40 (NQF 0066) - N/AStatin therapy for ASHD or FHL or DM - N/ABMI documented and plan if ANDgt ;25 (NQF 0421) - lifestyle recommendation formTobacco use screening and referral (NQF 0028) - lifest yle recommendation formRecommendation for whole food, plant based diet - lifestyle recommendation for mCLINICAL IMPRESSION/PLAN:Tyron Vazquez has had recent exacerbation of hypertension, related partly to noncompliance. It has been stressed to him that with his cardiomyopathy, hemust keep his blood pressu re under good control. He specifically should notever discontinue his beta jim acutely.I've advised him to continue his current medications for the time being andhave his blood pressure cuff checked to julieth e sure that it is calibrated well.His heart rate should be checked during his sensation of palpitations. I 'veencouraged him to have a lipid profile done.We discussed appropriate exercise, which would be aer obic. He voices anxietyabout proceeding in the presence of decreased exercise tolerance and with chestdisc omfort. I recommended that we have a treadmill nuclear stress test done.This will be done on medication. Imaging study is necessary because of hisresting ST-T changes.I will see him in 6 months or as needed. He's been advised to consider goingback to HOC clinic and to have his children evaluated for possible posit ivephenotype.Written and verbal health teaching given to patient, patient verbalizesunderstanding and agrees with treatment plan.This note was generated using [employer] recognition system, and ther e may besome incorrect words, spellings, and punctuation that were not noted inchecking the note before s aving.DIAGNOSIS FOR VISIT:Chest painHOCMVasovagal syncopeHISTORY OF PRESENT ILLNESSPhikevin Brittany delaney for follow-up of his variant HOCM . He reports thathe has had intermittent episodes of chest tightness . He has noted decreasedexercise tolerance. The discomfort in the chest is decreased somewhat bystretch ing but there has been a clear change in his energy level. He reportsthat his heart rate goes up very quic kly with minimal activity.He had recent elevated blood pressure to 210 over 136, associated with aheadac he. He was seen in primary care. By that time his blood pressure andheadache had improved. He has been ou t [facility] medications. [facility] He reports blood pressures now in the 150 over 100 range.He ramírez s noted occasional palpitations lasting 10-15 minutes. He describesskipping but no sustained tachycardia.He' s had no edema, TIAs, amaurosis or claudication. He's had no recurrentsyncope.He reports that he never got genetic testing. His family members have not beenreferred for evaluation.ALLERGIES:ALLERGI Caro Known AllergiesCURRENT OUTPATIENT MEDICATIONS:metoprolol succinate ER (TOPROL XL) 50 mg 24 hr tabl et Take 1 tablet by mouthonce daily.verapamil SR (CALAN SR, ISOPTIN SR) 120 mg CR tablet Take 1 tablet by m outhdaily at bedtime.ibuprofen (MOTRIN) 200 mg tablet Take 800 mg by mouth every 6 hours as needed(head aches.).Omeprazole Magnesium (PRILOSEC OTC) 20 mg tablet Take 2 tablets by mouth dailybefore breakfast. 1/2 hr before meal.PAST MEDICAL HISTORYDiagnosis Date- Abnormal EKG marked T wave inversions.- Anxiety - CAD (coronary artery disease) 2016 minimal CAD per 08/2016 cath.- Cervicalgia 06/29/2010- Erosi ve esophagitis 12/14/2012- Family history of sudden cardiac father suddenly at age 57- GI bleed 2012 in ~2012; treated with antibiotics.- Headache(784.0)- Heart murmur 2008 known since ~2008.- Herpes z brandin 02/04/2011- HTN (hypertension) 07/11/2009- Hyperlipidemia 07/30/2010- Hypertrophic cardiomyopathy (HCC) 2008 Apical variant form of HCM noted 2015. LVOT obstruction noted 2008.- Syncope in the past attribut ed to vasovagal syncope.- Tobacco use disorderPAST SURGICAL HISTORYProcedure Laterality Date- COLONOSCOP W/ OR W/O BRSH SPEC 03/24/13 Colonoscopy- EGD W/O OR W/BRUSH/WASH 12/10/2012 EGD- LEFT HEART CATH 2009- LEFT H EART CATH,PERCUTANEOUS 08/07/2016FAMILY HISTORYProblem Relation Age of Onset- Other [OTHER] Mother Living age 55, healthy.- Heart Father age 57 of ?heart attack with h/o illicit drug use. H/o HTN, HPL,diabe amina, kidney disease. CAD s/p CABG at age 53, s/p stents at age 55.- Coronary Artery Disease Paternal Gran dfather age 70s of [place]. H/o [place], pacemaker, HTN.- Diabetes Paternal Grandmother age 80s. H/ o diabetes, HTN.- Hypertension Paternal Grandmother- Other [OTHER] Brother Two half-brothers. 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 Alcohol us e: Yes Comment: 2 drinks per month. Drug use: No Sexual activity: Yes Partners with: FemaleOther Topics Con cernMilitary Service NoBlood Transfusions NoCaffeine Concern Yes Comment:5 cups dailyOccupational Exposure N oHobby Hazards NoSleep Concern NoStress Concern NoWeight Concern NoSpecial Diet NoBack Care YesExercise NoBi ke Helmet NoSeat Belt YesSelf-Exams NoREVIEW OF SYSTEMS: General: No chills, fever, weight loss, night sw eats.Respiratory: No productive cough. Cardiac: As noted above. GI: No melena.: No dysuria. Muscu loskeletal: No myalgias.PHYSICAL EXAMINATION: S/he is alert and in no distress.VITAL SIGNS: BP 156 /100 Pulse 84 Ht 5' 11ANDquot; (1.80m) Wt 283 lb 8 oz(128.6kg) BMI 39.56 kg/(m2).SHEENT: Skin i s warm and dry. No xanthelasmas appreciated. Pharynx isbenign. There is no oral cyanosis. Neck: supple. No a denopathy or thyroidenlargement. Chest: Clear to percussion and auscultation. Trachea is midline. Air entr y is equal. There is no chest wall tenderness. Cardiac: Regularrhythm. S1 and S2 are normal. PMI is nondis placed. There is a 2/6 systolicejection murmur which increases somewhat with Valsalva. There is a soft S4 gallop. No click is heard. Carotids are brisk without bruits. JVP is lessthan 10 cm. Abdomen: Soft and non tender. There are no pulsatile masses orbruits. No liver enlargement. Bowel sounds are active. Extremiti es: Noedema. Pulses are intact and symmetrical. No clubbing or cyanosis. Nofemoral bruits. Neurologic : Grossly normal motor and sensory. S/he is alertand oriented x4.Recent EKG showed no significant change . There is marked repolarizationabnormality.Recent labs were reviewed. Renal function is normal.Surendra nunez Signed:Kvng James MDClay [facility] Hospital 2017 8:59 [facility]:Fifi Rai MD 12/01/2017 9:16 AM SignedLIFESTJOVANY CHANGEA healthy lifestyle is the most important component of your overall treatmentplan. Please give serious thought to the following areas and commit to makinglong term anges.EAT A WHOLE FOOD, PLANT BASED DIETThe nutrition your body gets is more important than the medicine you take.What matters most is the overall way you eat. We encourage you to minimize theuse of animal pr oducts (which include dairy and all meats except fatty fish)and use whole, unprocessed plant foods to p rovide your protein, vitamins andother nutrients. We have a lot of information to share with you on this to [facility]. We also hold Shared Medical Appointments, where you can come visit with in the company of other patients and spend over an hour talking aboutthe challenges of changing the way you eat. This is not a ANDquot;dietANDquot;.It is a way of life that you will keep with you.EXERCISE REGULARLYIt is not important to spend hours in the gym, lifting weights and perspiringheavily. A total of 2-3 hours per wee k of aerobic (causing you to bemoderately short of breath) exercise is sufficient to improve your h ealth.Talk to us before you begin a new exercise program, if you have heart diseaseor experience shortne ss of breath or chest pain.REDUCE STRESSChronic emotional and physical stress leads to disease. Ways of re ducingstress include meditation, visualization, prayer, yoga and other forms ofrelaxation therapy. Consis tency is the osorio. Find a technique that works foryou and do it every day.CULTIVATE RELATIONSHIPSL oneliness and isolation have a major negative impact on health. Seek outothers who can love, care for and n urture you. Avoid hurtful relationships.MAINTAIN IDEAL BODY WEIGHTThe best way to do this is to do all the things above. Our bodies naturallyfind the right weight if we keep moving and feed ourselves the right jeanine d. Ifyour BMI is greater than 25, we strongly recommend a referral to a weightmanagement program. Pl ease speak to us or your family physician aboutavailable programs.AVOID NICOTINE IN ALL FORMSThis in cludes all tobacco products, whether chewed, smoked, vaped, or rubbed onthe skin. Smoking cessation prog sandhya, which can make use of tobaccosubstitutes, medications to suppress cravings and behavior manage ment, areavailable. Please contact your family physician about programs in your area.Angelica Mckinney PSR 11/07 6:05 PM SignedPatient is scheduled for a NST at [facility] on December 15, 2017 at 6:00 AMJohn Orozco RN, RN 11:40 AM SignedCopy of OV note, ECG, and stress echo report faxed to [facility] @ [phone].Referring Provider: KVNG JAMES [[id number]]Allergies As of Date: 12/01/2017(No Known Allergies)Date Reviewed: Reviewed by: John CardenasRn) SHEN Orozco - Fully AssessedReason for Visit: Follow Up [171]Primary Visit Diagnosis:HOCM (hypertrophic obstructive cardiomyopathy) (HCC) [I42.1] Other Visit Diagnosis:Essential hy pertension [I10]Order(s):EXERCISE STRESS W/NUC IMAGING [[id number]] Order #: [id number]: 1 NM CARDIAC PERF STRESS/EXERCISE [[id number]] Order #: [id number] FUTURE IV START - SPECIFY [[id number]] Order #: [id number] 0Qty: 1 IV DISCONTINUE [[id number]] Order #: [id number]: 1 metoprolol succinate ER (TOPROL XL) 50 mg 24 hr t abletTake 2 tablets by mouth once daily.Disp: Rfl: LIPID PANEL BASIC [SQLIPB] Order #: [id number] FUTUREPr escriptions as of 12/01/2017 Sig: METOPROLOL SUCCINATE ER 50 MG* Take 2 tablets by mouth once * VERAPAMIL ER (SR) 120 MG TABL* Take 1 tablet by mouth daily * IBUPROFEN 200 MG TABLET Take 800 mg by mouth every 6 * OM EPRAZOLE MAGNESIUM 20 MG TA* Take 2 tablets by mouth daily*Problem List As Of Date 12/01/2017 Noted Resolv ed HTN (hypertension) [I10] INVALID FOR*01/15/2013 Anxiety [F41.9] INVALID FOR*01/15/2013 Cervicalgia [ M54.2] INVALID FOR*01/15/2013 Hyperlipidemia [E78.5] INVALID FOR* Erosive esophagitis [K22.10] INVALID FOR* Tobacco use disorder [F17.200] INVALID FOR* Syncope and collapse [R55] INVALID FOR*07/09/2016 Abnor mal ECG [R94.31] INVALID FOR* Family history of ischemic heart disease [Z82.4*INVALID FOR* Chest pa in [R07.9] INVALID FOR* Apical variant hypertrophic cardiomyopathy (HCC*INVALID FOR* HTN (hypertension) [I10 ] INVALID FOR* Other instructions from your clinician: LIFESTYLE CHANGE A healthy lifestyle is the mos t important component of your overall treatment plan. Please give serious thought to the following are as and commit to making residential changes. EAT A WHOLE FOOD, PLANT BASED DIET The nutrition your body gets is more important than the medicine you take. What matters most is the overall way you eat. We encourage yo u to minimize the use of animal products (which include dairy and all meats except fatty fish) and use w hole, unprocessed plant foods to provide your protein, vitamins and other nutrients. We have a lot of information to share with you on this topic. We also hold Shared Medical Appointments, where you can come visit with Dr. James in the company of other patients and spend over an hour talking about the chall enges of changing the way you eat. This is not a diet. It is a way of life that you will keep with you. EXERCISE REGULARLY It is not important to spend hours in the gym, lifting weights and perspiring heavi ly. A total of 2-3 hours per week of aerobic (causing you to be moderately short of breath) exercise is sufficient to improve your health. Talk to us before you begin a new exercise program, if you have heart d isease or experience shortness of breath or chest pain. REDUCE STRESS Chronic emotional and physical stres s leads to disease. Ways of reducing stress include meditation, visualization, prayer, yoga and other forms of relaxation therapy. Consistency is the osorio. Find a technique that works for you and do it every day. CUL TIVATE RELATIONSHIPS Loneliness and isolation have a major negative impact on health. Seek out others who can love, care for and nurture you. Avoid hurtful relationships. MAINTAIN IDEAL BODY WEIGHT The best way to do this is to do all the things above. Our bodies naturally find the right weight if we keep moving and feed ourselves the right food. If your BMI is greater than 25, we strongly recommend a referral to a we ight management program. Please speak to us or your family physician about available programs. AVOID NI COTINE IN ALL FORMS This includes all tobacco products, whether chewed, smoked, vaped, or rubbed on the skin . Smoking cessation programs, which can make use of tobacco substitutes, medications to suppress crav ings and behavior management, are available. Please contact your family physician about programs in your area.Visit Notes:>> John Oliva) SHEN Orozco FriDec 15, 2017 11:39 AM Status: SignedCopy of OV note, ECG, and stress echo report faxed to [facility] @ [phone].Prescriptions ordered this encounter Disp Refills Start End METOPROLOL SUCCINATE ER 50 MG TABLET* 12/01/2017 12/01/2017 Class: Med Update Route: ORAL Sig: Take 1 tablet by mouth once daily. METOPROLOL SUCCINATE ER 50 MG TABLET* 12/01/2017 Class: Med Update Route: ORA L Sig: Take 2 tablets by mouth once daily.Medications Discontinued During This Encounter metoprolol succina te ER (TOPROL XL) * 180 * 3 11/28/2017 12/01/2017 Cmt: Par brand generic acceptable, otherwise must b e name brand [employer]stra [employer] Route: ORAL Sig: Take 1 tablet by mouth twice daily. Disc: Reason for discontinue is not on file. metoprolol succinate ER (TOPROL XL) * 12/01/2017 12/01/2017 Class: Med Update Route: ORA L Sig: Take 1 tablet by mouth once daily. Disc: Reason for discontinue is not on file.[employer] Smart[employer] f iled during this visit:Extended VitalsEncounter Number: [id number] Status:Closed by KVNG JAMES MD on 12/01/17 Encounters Date Type Reason Provider [facility] 01-13-2018 Ambulatory KVNG ERIKA [facility] 01-09-2018 - Ambulatory [facility]ANA J[facility] 01-09-2018 [id number] 12-17-2017 Ambulatory KVNGDYANA JAMES [facility] ([id number]) 12-01-2017 - Ambulatory Essential (primary) [facility] 12-01-2017 hypertension [facility] ([id number]) KVNG ERIKA Ernesto Monz 10-26-2019 - Patient encounter Psychophysiologic AMANDA HERRERA Fa cility:[facility] 02-14-2020 procedure insomnia AMANDA HERRERA [facility] NONE NONE NONE Hospital - [facility] ve NONE Payers Payer Name Policy Number Location [facility] BENEFITS [id number] [facility] ([id number]) [facility] CHOICE PLUS [id number] [facility] ([id number]) [id number] [facility] ([id number]) The following information is from the original human readable contentNo Payer Records FoundNo Payer Records FoundNo Payer Records FoundNo Payer Records FoundNo Payer Records Found Summary Purpose Family History No Family History Records FoundNo Family History Records FoundNo Family History Records FoundNo Family History Records FoundNo Family History Records Found Advance Directives No Advanced Directives Records FoundNo Advanced Directives Records FoundNo Advanced Directives Records FoundNo Advanced Directives Records FoundNo Advanced Directives Records Found Additional Source Comments FOR RECORDS PERTAINING TO PATIENTS WHO ARE OR HAVE BEEN ENROLLED IN A CHEMICAL DEPENDENCY/SUBSTANCE ABUSE PROGRAM, SOME INFORMATION MAY BE OMITTED. This clinical summary was aggregated from multiple sources. Caution should be exercised in using it in the provision of clinical care. This summary normalizes information from multiple sources, and as a consequence, information in this document may materially changethe coding, format and clinical context of patient data. In addition, data may be omittedin some cases. CLINICAL DECISIONS SHOULD BE BASED ON THE PRIMARY CLINICAL RECORDS. [facility] provides no warranty or guarantee of the accuracy or completeness of information in this document. UNRECOGNIZED CONTENT PROVIDED BELOW FOR UNRECOGNIZED SECTION No Status Records FoundNo Status Records FoundNo Status Records FoundNo Status Records FoundNo Status Records Found UNRECOGNIZED CONTENT PROVIDED BELOW FOR UNRECOGNIZED SECTION INFORMATION SOURCE DATE CREATED AUTHOR AUTHOR'S ORGANIZATIO N 03/26/2018 [facility] DATE CREATED AUTHOR AUTHOR'S ORGANIZATIO N 03/26/2018 [facility] DATE CREATED AUTHOR AUTHOR'S ORGANIZATIO N 03/27/2018 [facility] DATE CREATED AUTHOR AUTHOR'S ORGANIZATIO N 05/22/2019 [facility] DATE CREATED AUTHOR [facility]IZATIO N [facility]
== END ==
PROVIDERS: PCP Internal Medicine; Referring Provider Internal Medicine Cardiovascular Disease; Visit Provider Internal Medicine Cardiovascular Disease
DX: I10 Essential (primary) hypertension (principal)
CPT/HCPCS: 36415; 80061; 80076

== ENCOUNTER → 2020-03-17 13:29 | Outpatient (CLI) | payer BC, SELFPAY ==
[2020-03-01 15:43] VITALS: BMI 41.5
--- NOTE | 2020-03-17 13:31 | ECHOCS_ITS ---
Reason For Study: HTN Procedure This was a 2D Doppler, Color Flow transthoracic echocardiogram. The study was technically difficult. Contrast injection was performed. Exam performed in department. Left Ventricle Normal LV size. The echo findings are consistent with hypertrophic cardiomyopathy. Apical hypertrophic cardiomyopathy. Moderate concentric left ventricular hypertrophy. Left ventricular systolic function is normal. The estimated ejection fraction is 65 %. No regional wall motion abnormalities noted. Right Ventricle Normal RV size. Normal systolic function. Atria Normal left atrium. Normal right atrium. Mitral Valve Normal mitral valve. Tricuspid Valve Normal tricuspid valve. Aortic Valve The aortic valve is not well visualized. Pulmonic Valve Normal pulmonic valve. Great Vessels Normal aortic root. The pulmonary artery is normal size. Normal inferior vena cava. Pericardium/Pleural No pericardial effusion. Medication 22 gauge I.V. with prn adaptor inserted into right arm. Diluted definity 3ml given slow IV push to enhance endocardial definition. MMode/2D Measurements & Calculations LVIDd: 4.6 cm IVSd: 1.4 cm LVOT diam: 2.0 cm LVIDs: 2.8 cm LVPWd: 1.6 cm RVDd: 3.9 cm FS: 38.7 % LVOT area: 3.2 cm2 Ao root diam: 3.7 cm LAV(MOD-bp): 48.9 ml LA A4 area: 18.2 cm2 LAV(MOD-bp) Indexed: 20.0 ml/m2 LAV(MOD-sp2): 45.7 ml LAV(MOD-sp4): 49.7 ml RA A4 area: 17.5 cm2 Time Measurements MV dec time: 0.25 sec Doppler Measurements & Calculations MV E max biju: 77.2 cm/sec Lat Peak E' Biju: 4.3 cm/sec Med Peak E' Biju: 3.0 cm/sec MV A max biju: 87.8 cm/sec E/E' lat: 17.9 E/E' med: 25.5 MV E/A: 0.88 MV V2 max: 104.0 cm/sec MV P1/2t max biju: 98.2 cm/sec LV V1 max: 165.1 cm/sec MV max P.3 mmHg MV P1/2t: 64.1 msec LV V1 max P.9 mmHg MV V2 mean: 49.6 cm/sec MV dec slope: 449.0 cm/sec2 LV V1 mean P.3 mmHg MV mean P.2 mmHg LV V1 mean: 104.4 cm/sec MV V2 VTI: 38.9 cm MVA(P1/2t): 3.4 cm2 LV V1 VTI: 34.4 cm MVA(VTI): 2.9 cm2 MR max biju: 553.9 cm/sec SV(LVOT): 110.9 ml PA V2 max: 78.0 cm/sec MR max P.7 mmHg Interpretation Summary Normal LV size. Left ventricular systolic function is normal. The estimated ejection fraction is 65 %. Apical hypertrophic cardiomyopathy Moderate concentric left ventricular hypertrophy. Contrast injection was performed. Ordering Physician: Chan Rose Referring Physician: Chan Rose Performed By: Kirk Connor RCS
--- OUTSIDE RECORDS SUMMARY | 2020-07-23 12:42 | XMS RPT_ITS | CCD ---
:1980 External Reference #:[id number] Author Organization [facility] Care Team Providers Name Role Phone [...] Location Coronary atherosclerosis Atherosclerotic heart Active 018 [facility] and other heart disease disease of [place] ([address]457) coronary artery without angina pectoris Essential hypertension Essential (primary) Active 05-15-2017 - [facility] (40712) Miscellaneous mental Psychophysiologic Active 10-26-2019 - [facility] disorders [facility] (0 0000) Malissa-; endo-; and Obstructive hypertrophic Active 12-01-2017 - [facility] myocarditis; cardiomyopathy Medical Cente r cardiomyopathy (99256) Unclassified Unknown / UNK(Unknown) Active 05-15-2017 - [facility] (88097) Results Result Name Value Range Unit Interpretation Flag Date Location obsolete on 2019-05 OBSOLETE Refill (INTMWS) Normal 05-17-2019 [facility] TYRON VAZQUEZ ([id number]) 1980 [facility] Date Time Provider Department (65121) 05/17/19 ERNESTO BRAN During your visit today, [...] OBSOLETE Refill (INTMWS) Normal 04-27-2019 [facility] TYRON VAZQUEZ ([id number]) 1980 [facility] Date Time Provider Department (77163) 04/27/19 ERNESTO BRAN INTMWS During your visit [...] few days and will se e jon [facility] Marketing Content Specialist on 05/05/[address]. [address] Bran to send short term supply of medication to [facility], until he sees his new Marketing Content Specialist? Please review and advise. Amanda Vazquez RN Daniel Heller Cma 04/27/2019 2:55 PM Signed The following approved medic ation requests have been transmitted electronically. Signed Prescriptions Disp Refills metoprolol succinate ER (TOPROL XL) 100 mg Tb24 20 tablet 0 Sig: Take 1 tablet by mouth twice daily. SARA: Yes Authorizing Provider: MICHELLE GUTIERRES (TRAFFIC MAINTENANCE SUPERVISOR) Daniel Heller Cma Allergies As of Date: 04/27/2019 Noted Allergy Reaction BUPROPION 05/18/2018 14 - Other: See Comments Comments: Flushing, numbness, tingling. 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] Order(s):metoprolol succinate ER (TOPROL XL) 100 mg [id number] 1 tablet by mouth twice daily.Disp: 20 [...] 04/27/19 progress on 2018-11 PROGRESS HNO ID: [id number] Normal 12-01-2018 [facility] Author: Shalini (Terrazzo Mechanic) James [place] ([id number]) Service: (none) Author Type: Nurse Practitioner Type: [...] 2018-12-01 CNOV Office Visit (INTMWS) Normal 12-01-19 [place] [facility] TYRON VAZQUEZ ([id number]) 1980 [facility] Date Time Provider Department (80016) 12/01/18 2:40 PM SHALINI CUADRA (TRAFFIC MAINTENANCE SUPERVISOR) INTMWS During your visit today, we recorded [...] agreeable to treatm ent plan. Shalini Cuadra APRN.TRAFFIC MAINTENANCE SUPERVISOR Referring Provider: SELF [200] Allergies As of [...] STOUGHTONTOUTREA Patient Outreach (INTMWH) Normal 0 11-03-2018 [place] [facility] TYRON VAZQUEZ ([id number]) 1980 [facility] Date Time Provider Department (10827) 11/03/18 [facility] During your visit today, we recorded the following informati on about you: Allergies As of Date: 11/03/2018 Noted Allergy Reaction BUPROPION 05/18/2018 14 - Other: See Comments Comments: Flushing, numbness, tingling. Date Reviewed: 07/27/2018 Reviewed by: Deonna Rizzo LPN - Fully Assessed Visit Diagnosis:Medication management [Z79.899] Order(s):HGB A1C [PIKRQ9M] Order #: [id number] FUTURE Prescriptions as of 11/03/2018 Sig: OMEPRAZOLE [...] vitamin b12 on 2017 Cobalamin (Vitamin B12) 903 042-0851 pg/mL Normal 2017 [facility] [Mass/Vol] [place] (08282) Comment: Performed By: #### TSH, B12 ####[facility] [address] [place], [place] [id number]- [phone] tsh on 2018-07-27 TSH Qn 1.940 0.400-5.500 uU/mL Normal 07-27-2018 [facility] (96311) Comment: Performed By: #### TSH, B12 ####[facility] [address] [place], [place] [id number]- [phone] progress on 2018-07 PROGRESS HNO ID: [id number] Normal 07-27-2018 [facility] Author: Ernesto Bran [place] ([id number]) Service: (none) Author Type: Physician Type: Progress Notes Filed: 07/27/2018 10:32 AM Note Text: This note was created using IceWEBriter. Subjective Tyron Vazquez is a 37 year old male was here for memory difficulties noted by him and his family. He estimated this started about 6 months ago. Examples: he put a used coffee cup in the drawer instea d of the area forester. He loses his train of thought doing [...] 2018-07-27 CNOV Office Visit (INTMWS) Normal 07-27-[address] [place] [address] Clinic ASHIA VAZQUEZCORNELL Soto ([id number]) 1980 [facility] Date Time Provider Department (61203) 07/27/18 9:40 AM ERNESTO BRAN INTMWS During your visit today, we recorded the following informati on about you: Temperature Pulse Respiration Blood pressure 96.6 degrees 68/minute 20/minute 124/70 Weight 126.6 kg Ernesto Bran MD 07/27/2018 10:32 AM Signed This note was created using IceWEBriter. Subjective Tyron [place]oto Kobi is a 37 year old male was here for memory difficulties noted by him and his family. He estimated this started about 6 mon s ago. Examples: he put a used coffee cup in drawer instead of the area forester. He loses his train of thought doing [...] [H53 .411] Snoring [R06.83] Order(s):CONSULT TO OPHTHALMOLOGY [9038] Order #: [id number] Qty: 1 Prescriptions as of 07/27/2018 Sig: [...] 8 progress on 2018-06 PROGRESS HNO ID: [id number] Normal 06-20-2018 [facility] Author: Ernesto Bran [place] ([id number]) Service: (none) Author Type: Physician Type: Progress Notes Filed: 06/19/2018 11:32 PM Note Text: This note was created using IceWEBriter. Subjective Tyron Vazquez is a 37 year [...] 2018-06-18 CNOV Office Visit (INTMWS) Normal 06-18-[address] [place] [address] Clinic TYRON VAZQUEZ Brittany ([id number]) 1980 [facility] Date Time Provider Department (70507) 06/18/18 7:00 PM ERNESTO BRAN INTMWS During your visit today, we recorded the following informati on about you: Pulse Respiration Blood pressure Weight 72/minute 16/minute 118/70 128.8 kg Ernesto Bran MD 06/19/2018 11:32 PM Signed This note was created using IceWEBriter. Subjective Tyron Vazquez is a 37 year [...] Bilirubin, Urine Negative Negative Normal 06-06-2018 [facility] (42446) Comment: Performed By: #### UAWMIC ## ## [facility] [address] [place], [place] [address] Clarity (U) Clear Clear Normal 06-06-2018 [facility] (35511) Comment: Performed By: #### UAWMIC ## ## [facility] [address] [place] [id number] Color (U) Yellow Yellow Normal 06-06-2018 [facility] (97886) Comment: Performed By: #### UAWMIC ## ## [facility] [address] [place] [address] Comments SEE COMMENT Normal 06-06-2018 [facility] (35669) Comment: Result Comment: N/A Performed By: #### UAWMIC ## ## [facility] [place] [address] Epithelial cells LM.HPF SEE COMMENT Normal [facility] (Urine sed) [#/Area] [place] (57241) Comment: Result Comment: Few Squamous Epithelial Cells Performed By: #### UAWMIC ## ## [facility] [address] [place] [address] Glucose Ql (U) Negative Negative Normal 06-06-2018 [facility] (21855) Comment: Performed By: #### UAWMIC ## ## [facility] [address] [place] [address] Hemoglobin/Blood,Ur Negative Negative Normal 06-06-2018 [facility] (78562) Comment: Performed By: #### UAWMIC ## ## [facility] [address] [place] [id number] Ketones Ql (U) Negative Negative Normal 06-06-2018 [facility] (14121) Comment: Performed By: #### UAWMIC ## ## [facility] [address] [place] [address] Leukest Negative Negative Normal 06-06-2018 [facility] (64915) Comment: Performed By: #### UAWMIC ## ## [facility] [address] [place], [place] [address] Nitrite Ql (U) Negative Negative Normal 06-06-2018 [facility] (19076) Comment: Performed By: #### UAWMIC ## ## [facility] [place], [place] [address] pH (Bld) 6.0 4.5-8.0 Normal 06-06-2018 [facility] (23106) Comment: Performed By: #### UAWMIC ## ## [place] [address] Protein (U) [Mass/Vol] Negative Negative mg/dL Normal 018 [facility] (54566) Comment: Performed By: #### UAWMIC ## ## [place] [address] RBC (U) [#/Vol] 0-3 0-3 Normal 06-06-2018 [facility] (67660) Comment: Performed By: #### UAWMIC ## ## [address] [place], [place] [address] Specific [place], Ur 1.019 1.005-1.030 Normal 018 [facility] (98237) Comment: Performed By: #### UAWMIC ## ## [address] [place] [place], [place] [address] Urine [place] Comment SEE COMMENT Normal 06-06-2018 [facility] (93327) Comment: Result Comment: N/A Performed By: #### UAWMIC ## ## [facility] [place], [place] [address] Urobilinogen Qn (U) Normal Normal Normal 06-06-2018 [facility] (58669) Comment: Performed By: #### UAWMIC ## ## [facility] [address] [address] WBC (Bld) [#/Vol] 0-5 0-5 Normal 06-06-2018 [facility] (08414) Comment: Performed By: #### UAWMIC ## ## [place] [address] magnesium on 06-06 Magnesium [Mass/Vol] 2.1 1.7-2.3 mg/dL Normal 8 [facility] (78999) Comment: Performed By: #### CK, ALT, BMP, MG1, LIPB #### [place] [address] lipid panel, basic on 2018-06-06 Cholesterol [Mass/Vol] 222 <200 mg/dL High 018 [facility] (89869) Comment: Result Comment: <200 mg/dL, Desirable 200-239 mg/dL, Borderline hi gh >239 mg/dL, High Performed By: #### CK, ALT, BMP, MG1, LIPB #### [address] [address] Cholesterol in HDL [Mass/Vol] 29 >39 mg/dL Low 06-06-2018 [facility] (56765) Comment: Result Comment: 40-59 mg/dL, Acceptable >59 mg/dL, High: Negative ri sk factor for coronary heart disease <40 mg/dL, Low: Positive ris k factor for coronary heart disease Performed By: #### CK, ALT, BMP, MG1, LIPB #### [address] [address] Cholesterol in LDL 135 <100 mg/dL High 06-06-2018 [facility] [Mass/Vol] (97363) Comment: Result Comment: <100 mg/dL, Optimal 100-129 mg/dL, Near optimal/ above optimal 130-159 mg/dL, Borderline hi gh 160-189 mg/dL, High >189 mg/dL, Very high Secondary prevention optimal LDL Cholesterol levels are recommended to be < 70 mg/dL Performed By: #### CK, ALT, BMP, MG1, LIPB #### [facility] [address] [place] [address] Fasting Time 12 hrs Normal 06-06-2018 [facility] (53039) Comment: Performed By: #### CK, ALT, BMP, MG1, LIPB #### [place] [address] LDL:HDL Ratio 4.66 <2.54 High 06-06-2018 [facility] (48077) Comment: Result Comment: Reference: 1. National Cholesterol Educ ation Program ATP III Guideline At-A-Glance Quick Desk Reference: National Heart, Lung, and Blood [place]. National Institutes of Health. 2001: NIH Publication No. 01-3305. 2. An International Atherosc lerosis Society position paper: global recommendations for the management of dyslipidemia: executive summary, Atherosclerosis. 2014: 232(2):410-413. Performed By: #### CK, ALT, BMP, MG1, LIPB #### [place] [address] Non HDL Cholesterol 193 <130 mg/dL High 06-06-2018 [facility] (20486) Comment: Result Comment: <130 mg/dL, Optimal 130-159 mg/dL, Near optimal/ above optimal 160-189 mg/dL, Borderline hi gh 190-219 mg/dL, High >219 mg/dL, Very high Secondary prevention optimal non HDL Cholesterol levels are recommended to be < 100 mg/dL Performed By: #### CK, ALT, BMP, MG1, LIPB #### [address] [place] [address] [place] [address] TC:HDL Ratio 7.66 <5.10 High 06-06-2018 [facility] (75061) Comment: Performed By: #### CK, ALT, BMP, MG1, LIPB #### [facility] [address] [place], [place] [address] Triglyceride [Mass/Vol] 291 <150 mg/dL High 2017 [facility] (99653) Comment: Result Comment: <150 mg/dL, Normal 150-199 mg/dL, Borderline hi gh 200-499 mg/dL, High >499 mg/dL, Very high Performed By: #### CK, ALT, BMP, MG1, LIPB #### [facility] [address] [place] [address] VLDL Cholesterol 58 <30 mg/dL High 06-06-2018 [facility] (98763) Comment: Performed By: #### CK, ALT, BMP, MG1, LIPB #### [address] [address] ck on 2018-06-06 CK [Catalytic activity/Vol] 235 51-298 U/L Normal [facility] (52054) Comment: Result Comment: Please note the updated, gender-specific reference range for this test (effective 016). Performed By: #### CK, ALT, BMP, MG1, LIPB #### [address] [address] basic metabolic panl on 2018-06-06 Anion gap [Moles/Vol] 19 9-18 mmol/L High 06-06-20 18 [facility] (42990) Comment: Performed By: #### CK, ALT, BMP, MG1, LIPB #### [address] [address] Calcium [Mass/Vol] 9.5 8.5-10.2 mg/dL Normal 06-06-2018 [facility] (80862) Comment: Performed By: #### CK, ALT, BMP, MG1, LIPB #### [address] [place], [place] [address] Chloride [Moles/Vol] 100 97-105 mmol/L Normal 8 [facility] (61889) Comment: Performed By: #### CK, ALT, BMP, MG1, LIPB #### [facility] [address] [place], [place] [address] CO2 [Moles/Vol] 22 22-30 mmol/L Normal 06-06-2018 [facility] (02794) Comment: Performed By: #### CK, ALT, BMP, MG1, LIPB #### [facility] [address] [place] [address] Creatinine [Mass/Vol] 1.35 0.73-1.22 mg/dL High 06-06-20 18 [facility] (31632) Comment: Performed By: #### CK, ALT, BMP, MG1, LIPB #### [place] [address] [place] [address] eGFR- Amer. >60 Normal 06-06-2018 [facility] (22150) Comment: Performed By: #### CK, ALT, BMP, MG1, LIPB #### [facility] [address] [place], [place] [address] GFR/1.73 sq M predicted among 59 . Normal 06-06-2018 [facility] non-blacks MDRD (S/P/Bld) [Vol (61523) rate/Area] Comment: Result Comment: eGFR (Estima claudette [...] ALT, BMP, MG1, LIPB #### [facility] [address] [place] [id number] Glucose [Mass/Vol] 90 74-99 mg/dL Normal 06-06-2018 [facility] (19582) Comment: Result Comment: The [place] Diabetes Association (ADA) provides guidance for cutoff [...] for diagnosis of diabetes. Reference: Standards of [facility] Care in Diabetes 2016, [place] Diabetes Association. Diabetes Care. 2016.39(Suppl 1). Performed By: #### CK, ALT, BMP, MG1, LIPB #### [facility] [address] [place] [id number] Potassium [Moles/Vol] 4.7 3.7-5.1 mmol/L Normal 06-06-20 18 [facility] (15432) Comment: Performed By: #### CK, ALT, BMP, MG1, LIPB #### [facility] s [address] [place] [address] Sodium [Moles/Vol] 141 136-144 mmol/L Normal 06-06-2018 [facility] (18603) Comment: Performed By: #### CK, ALT, BMP, MG1, LIPB #### [facility] s [address] [place] [id number] Urea nitrogen [Mass/Vol] 15 9-24 mg/dL Normal 06-06 [facility] (92990) Comment: Performed By: #### CK, ALT, BMP, MG1, LIPB #### [facility] [address] [place], [place] [address] alt on 2018-06-06 ALT [Catalytic activity/Vol] 43 10-54 U/L Normal 0 06-06-2018 [facility] (01569) Comment: Performed By: #### CK, ALT, BMP, MG1, LIPB #### [facility] [address] [place], [place] [address] progress on 2018-05 PROGRESS HNO ID: [id number] Normal 06-05-2018 [facility] Author: Kvng James [place] ([id number]) Service: (none) Author Type: Physician Type: Progress [...] 2018-06-05 CNOV Office Visit (CAWSTR) Normal 06-05-[address] [place] [address] [facility] TYRON VAZQUEZ ([id number]) 1980 [facility] Date Time Provider Department (01130) 06/05/18 8:30 AM KVNG JAMES CAWSTR During [...] followi ng areas and commit to making fci changes. EAT A WHOLE FOOD, PLANT BASED [...] in your area. Referring Provider: KVNG JAMES [54023] Allergies As of Date: 06/05/2018 Noted Allergy Reaction BUPROPION 05/18/2018 14 - Other: See Comments Comments: Flushing, numbness, tingling. 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 EAT A WHOLE FOOD, PLANT BASED [...] 06/05/18 progress on 2018-01 PROGRESS HNO ID: [id number]: Kvng adorno 01-09-2018 [facility] Jacques ShaferService: (none)Author Type: Medical Center PhysicianType: Progress NotesFiled: (03454) 01/09/2018 6:11 PMNote Text:PERTINENT CARDIAC HISTORYSyncope - [...] [place] the [place] he's been advised to discontinue [...] LAD disease.These images have been uploaded into SiVerionERGIES:ALLERGIESNo Known AllergiesCURRENT OUTPATIENT MEDICATIONS:atorvastatin (LIPITOR) 20 mg tablet Take 1 tablet by mouth once daily.nitroglycerin sublingual (NITROQUICK) 0.4 mg SL tablet Dissolve 1 tabletunder the tongue as needed. for chest pain,every 5 min m1stbrmmfezm succinate ER (TOPROL XL) 50 mg 24 [...] to restarting Lipitor.Electronically Signed:Geetha Saleh 2017 9:24 [facility]: MD anibal Rai on 2018-01-09 CNOV Office Visit Normal 01-09-2018 [place] (AGCARDWST) TYRON VAZQUEZ ([id number]) 1980 M Date Time Provider Department01/09/18 9:00 [...] hisangiogram from 2016, which was performed in [place].In the meantime he's been advised t o [...] LAD disease. These images have been uploadedinto SiVerionERGIES:ALLERGIESNo Known AllergiesCURRENT OUTPA TIENT MEDICATIONS:atorvastatin (LIPITOR) 20 mg tablet Take 1 tablet by mouth once daily.nitroglycerin sub lingual (NITROQUICK) 0.4 mg SL tablet Dissolve 1 tablet underthe tongue as needed. for chest pain,every 5 min g1nbdpwgqywr succinate ER (TOPROL XL) 50 mg 24 [...] Signed:Kvng James MD January 09, 2018 9:24 [facility]: Ernesto Bran, MDReferring Provider: KVNG JAMES [[id number]]Allergies A s of Date: 01/09/2018(No Known Allergies)Date Reviewed: 01/09/2018Reviewed by: Katja García for Visit: Follow Up [171]Primary Visit Diagnosis:HOCM (hypertrophic obstructive ca rdiomyopathy) ([facility]) [I42.1]Order(s):BASIC METABOLIC PNL [SQBMP] Order #: [id number] FUTURE metoprolol succinate ER (TOPROL XL) 50 [...] [place] FRONTAL/LAT EXAM: Dec 17 2017 6:05PM [facility] [address] [facility] - XR CHEST 2V FRONTAL/LAT / (68904) REASON: I25.10-Atherosclerotic heart disease of [place] coronary artery without angina pe * * * * Physician Interpretation * * * * EXAMINATION: CHEST RADIOGRAPH (2 VIEW FRONTAL and LATERAL)Clinical History: Atherosclerotic heart disease of [place] coronary artery without angina pectorisMQ: XC2_4Comparison: 5-3-22YESWIWU:Lines, tubes, and devices: None.Lung parenchyma and pleura: Lungs clear. No pleural fluid or pneumothorax.Thoracic inlet, heart, and mediastinum: Heart, mediastinum and pulmonary vessels unremarkable.Other: Upper abdomen unremarkable. No free air beneath diaphragm. No fracture.No significant change.IMPRESSION: No acute abnormality.Cryptography Teacher: DANG Transcribe Date/Time: Dec 17 2017 6:13PDictated by : ANN MARIE ESTRELLA MDThis examination was interpreted and the report reviewed and electronically signed by: ANN MARIE ESTRELLA MD on Dec 17 2017 6:13PM [id number] cnpn on 2017-12-16 CNPN Telephone Normal 12-16-2017 [place] (AGCARDWST) TYRON VAZQUEZ ([id number]) 1980 Date Time Provider Department12/16/17 KVNG JAMES AGCARDWST During your Medical visit today, we recorded the following information about you:John Orozco RN, RN 12/16/2017 8:51 AM Center SignedNST report from [facility] (0 3-18) in folder for review, thank you.Kvng James MD 12/16/2017 4:14 ( 08221) PM SignedStress test suggest ed maybe significant blockage in one of 3 blood vessels. Heis having chest discomfort and has had a sig nificant decrease in exercisetolerance. I recommend that he have an angiogram to make sure we understandco mpletely what is going on with his heart function and circulation. [facility] for his convenience. If he is [...] wouldprefer t o have cath done at [place]. I let him know that we have had sometrouble getting caths scheduled at [place] in the past, but I would see what youthink.Kvng James MD 12/16/2017 4:27 PM SignedMedina cannot do a stent if he needs one. [facility].Kvng James, Rubens Orozco RN, RN 12/16/2017 4:36 PM SignedPatient agreeable to going to [facility], please review orders, he will have them donetomorrow.John Orozco RN, RN 12/17/2017 9:37 AM SignedLeft msg for Jacque at [facility] and spoke to nurse Nancy that wewanted to set patient up for cath. Faxed demographics , OV note, copy of thisnote, ECG, insurance cards to [phone]. Will forward CXR and lab work whenpatient has them done.John Orozco RN, RN 12/18/2017 8:19 AM SignedCXR and recent labs faxed to [facility] @ [phone].Allergies As of Date: 12/16/2017(No Known Allergies)Date Reviewed: 12/01/2017Reviewed by: John Orozco RN - Fully AssessedReason for Visit: Outside Testing [1202] Cmt: NSTPrimary Visit Diagnosis:ASHD (arteriosclerotic heart disease) [I25.10]Order(s):nitroglycerin sublingual (NITROQUICK) 0.4 mg SL tabletDissolve 1 tablet under the tongue as needed. for chest pain,every 5 min x3Disp: 1 Bottle of 25 Rfl: 3 XR CHEST 2V FRONTAL/LAT [[id number]] Order #: [id number] FUTURE CBC [SQCBC] Order #: [id number] FUTURE B ASIC METABOLIC PNL [SQBMP] Order #: [id number] FUTURE PROTHROMBIN TIME/PT [SQPT] Order #: [id number] F UTUREPrescriptions as of 12/16/2017 Sig: NITROGLYCERIN [...] as needed. for chest pain,every 5 min i7Umlyuveja Number: [id number] Status:Closed by JOHN OROZCO on 12/17/17 progress on 2017-11 PROGRESS HNO ID: [id number] Normal 12-01-2017 Timothy Jacques Author: [facility] Service: (none) (000 00) Author Type: (none) Type: Progress Notes Filed: 12/01/2017 6:05 PM Note Text: Patient is scheduled for a NST at [facility] on December 15, 2017 at 6 :00 AM PROGRESS HNO ID: [id number]: Kvng adorno 12-01-2017 Timothy GarridoferService: (none)Author Type: Medical Center PhysicianType: Progress NotesFiled: ([id number]) 12/01/2017 6:05 PMNote Text:PERTINENT CARDIAC HISTORYSyncope - [...] with treatment plan.This note was generated using [employer] Intelligence recognition system, and theremay be some incorrect [...] Number of children: 3Occupational 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 [facility] He reports blood pressures now in [...] er of children: 3Occupational HistoryOccupation Employer Comment [employer] asembly lineSocial Hist ory Main Topics [...] Renal function is normal.Surendra nunez Signed:[facility]ng [facility] 8:59 [facility]:Fifi Rai MD 12/01/2017 9:16 AM SignedLIFESTJOVANY CHANGEA [...] to share with you on this to [facility]. We also hold Shared Medical Appointments, where [...] SignedPatient is scheduled for a NST at [facility] on December 15, 2017 at 6:00 AMJohn Orozco RN, RN 11:40 AM SignedCopy of OV note, ECG, and stress echo report faxed to [facility] @ [phone].Referring Provider: KVNG JAMES [[id number]]Allergies As of Date: 12/01/2017(No Known Allergies)Date Reviewed: Reviewed by: John CardenasRn) SHEN Orozco - Fully AssessedReason for Visit: Follow Up [171]Primary Visit Diagnosis:HOCM (hypertrophic obstructive cardiomyopathy) (HCC) [I42.1] Other Visit Diagnosis:Essential hy pertension [I10]Order(s):EXERCISE STRESS W/NUC IMAGING [[id number]] Order #: [id number]: 1 NM CARDIAC PERF STRESS/EXERCISE [[id number]] Order #: [id number] FUTURE IV START - SPECIFY [[id number]] Order #: [id number] 0Qty: 1 IV DISCONTINUE [[id number]] Order #: [id number]: 1 metoprolol succinate ER (TOPROL XL) 50 mg 24 hr t abletTake 2 tablets by mouth once daily.Disp: Rfl: LIPID PANEL BASIC [SQLIPB] Order #: [id number] FUTUREPr escriptions as of 12/01/2017 Sig: METOPROLOL [...] following are as and commit to making fci changes. EAT A WHOLE FOOD, PLANT BASED [...] ECG, and stress echo report faxed to [facility] @ [phone].Prescriptions ordered this encounter Disp Refills Start End [...] f iled during this visit:Extended VitalsEncounter Number: [id number] Status:Closed by KVNG JAMES MD on 12/01/17 Encounters Date Type Reason Provider Location 06-05-2018 [facility] 01-13-2018 Ambulatory KVNG ERIKA [facility] 01-09-2018 - Ambulatory KVNGDYANA JAMES [facility] 01-09-2018 [id number] KVNG Bran 12-17-2017 Ambulatory KVNGDYANA JAMES [facility] ([id number]) 12-01-2017 - Ambulatory Essential (primary) [facility] J[facility] 12-01-2017 hypertension [facility] ([id number]) KVNG ERIKA Ernesto Monz 10-26-2019 - Patient encounter Psychophysiologic AMANDA HERRERA Fa cility:[facility] 02-14-2020 procedure insomnia AMANDA HERRERA [facility] NONE NONE NONE Hospital - [facility] NONE Payers Payer Name Policy Number Location [facility] BENEFITS [id number] [facility] ([id number]) [facility] CHOICE PLUS [id number] [facility] ([id number]) [id number] [facility] ([id number]) The following information is from the original [...] BE BASED ON THE PRIMARY CLINICAL RECORDS. [facility] provides no warranty or guarantee of the accuracy or completeness of information in this document. UNRECOGNIZED CONTENT PROVIDED BELOW FOR UNRECOGNIZED SECTION No Status Records FoundNo Status Records FoundNo Status Records FoundNo Status Records FoundNo Status Records Found UNRECOGNIZED CONTENT PROVIDED BELOW FOR UNRECOGNIZED SECTION INFORMATION SOURCE DATE CREATED AUTHOR AUTHOR'S ORGANIZATIO N 03/26/2018 [facility] DATE CREATED AUTHOR AUTHOR'S ORGANIZATIO N 03/26/2018 [facility] DATE CREATED AUTHOR AUTHOR'S ORGANIZATIO N 03/27/2018 [facility] DATE CREATED AUTHOR AUTHOR'S ORGANIZATIO N 05/22/2019 [facility] DATE CREATED AUTHOR AUTHOR'S ORGANIZATIO N [facility]
== END ==
PROVIDERS: PCP Internal Medicine; Referring Provider Internal Medicine Cardiovascular Disease; Visit Provider Internal Medicine Cardiovascular Disease
DX: I42.2 Other hypertrophic cardiomyopathy (principal); I10 Essential (primary) hypertension
CPT/HCPCS: 93306; Q9957; A4216; C8929

== ENCOUNTER 2022-03-11 10:11 | Emergency (ER) | payer OTHER, SELFPAY ==
[2022-03-11 10:12] VITALS: BP 158/127; PULSE 124; RESP 18; TEMP 36.8; O2SAT 99; BMI 41.1
--- NOTE | 2022-03-11 10:15 | EKG12_ITS ---
Test Reason : CP Blood Pressure : / mmHG Vent. Rate : 137 BPM Atrial Rate : 156 BPM P-R Int : 000 ms QRS Dur : 090 ms QT Int : 350 ms P-R-T Axes : 000 030 188 degrees QTc Int : 528 ms Atrial fibrillation /Flutter Voltage criteria for left ventricular hypertrophy ST & Marked T wave abnormality, consider anterolateral ischemia Abnormal ECG Confirmed by CK CH, BING ([id number]), food expeditor ISMAEL WOLFF ([id number]) on 03/12/2022 1:41:51 PM Referred By: Chan Rose Confirmed By:BING STOVER MD
--- NOTE | 2022-03-11 10:54 | EKG12_ITS ---
Test Reason : CONVERTED Blood Pressure : / mmHG Vent. Rate : 069 BPM Atrial Rate : 069 BPM P-R Int : 216 ms QRS Dur : 088 ms QT Int : 432 ms P-R-T Axes : 019 007 162 degrees QTc Int : 462 ms Sinus rhythm with 1st degree A-V block Left ventricular hypertrophy ST/T wave abnormality: Consider LVH repolarization; myocardial ischemia; medication effect; metabolic effect Abnormal ECG Confirmed by CK CH, BING ([id number]), sound editor ISMAEL WOLFF ([id number]) on 03/12/2022 1:39:02 PM Referred By: PL Confirmed By:BING STOVER MD
--- NOTE | 2022-03-11 10:56 | ED.VIS.CHEST ---
HPI History of Present Illness Chief Complaint: Chest Pain Informant: patient Narrative Narrative: Presents with symptoms of atrial fibrillation. He had this about a year ago. He is on metoprolol. It is prescribed 100 twice daily but he takes it 200 in the morning because of otherwise he knows he misses it in the evening quite a bit. However, he has been taking it regularly. He is also on aspirin. No other anticoagulation. He feels very bad when he is in A. fib. He woke up yesterday morning and just did not have any energy. He has shortness of breath with any exertion. He notices heart rate was fast and irregular. He thought he would take his medicine because sometimes it would just go into A. fib for short time. At around noon he felt better. His heart rate was slower. He still had some of the generalized weakness symptoms but overall felt better. He woke up this morning and he feels back. He also has a little bit of heaviness on his chest with a high heart rate in the 130s. This patient does have a history of a hypertrophic cardiomyopathy that is thought to have been genetic. He has had multiple stress test and multiple heart catheterizations. He states these have never shown any need for stents. He reports that it showed like very mild problems. His last heart cath was just about 2 years ago. [facility] Medical History (Updated 03/11/22 @ 15:[address] Zeferino Fernandez MD) Abnormal resting ECG findings Abnormal stress test Anxiety Apical variant hypertrophic cardiomyopathy Atherosclerosis of [place] coronary artery of [place] heart without angina pectoris Atrial fibrillation Cervicalgia Chest pain Elevated troponin Erosive esophagitis Essential (primary) hypertension Family history of sudden cardiac (SCD) GI bleed Headache Heart murmur Herpes zoster Hyperlipidemia New onset atrial fibrillation (03/11/22) Nicotine dependence Obesity (BMI 30-39.9) Palpitations Syncope and collapse Home Medications omeprazole 40 mg capsule,delayed release 40 mg PO QDAY 12/18/17 [History Last Taken 01/02/18] metoprolol succinate 200 mg PO DAILY 03/11/22 [History Last Taken Unknown] Allergy/AdvReac Type Severity Reaction Status Date / Time bupropion [From Wellbutrin] Allergy Shortness Verified 03/11/22 10:12 of breath Family History Father CAD (coronary artery disease) CABG at age 55; at 57 with possible RI, Diabetes Hypertension Hyperlipidemia Sudden cardiac , Onset Age: 57 Grandfather CAD (coronary artery disease) Grandmother Diabetes Brother Hypertension Other Myocardial infarction Surgical History H/O colonoscopy (03/24/13) History of esophagogastroduodenoscopy (EGD) History of left heart catheterization (12/2017) Social History Smoking Status: Current every day smoker tobacco type: cigarettes Tobacco: How many years used: 25 ROS ROS ED Constitutional Constitutional ED: Denies chills or fever(s) Eyes Eyes: Denies blurry vision ENT ENT ED: Denies rhinorrhea or sore throat Cardiovascular Cardiovascular: Reports chest pain, palpitations and racing heartbeat Respiratory/Chest Respiratory/Chest: Reports dyspnea and dyspnea on exertion Gastrointestinal Gastrointestinal: Denies nausea or vomiting Genitourinary Genitourinary ED: Denies dysuria Musculoskeletal Musculoskeletal: Denies back pain or myalgias Integumentary Denies rash Neurologic Neurologic: Denies headache(s) Psychiatric Psychiatric: Denies anxiety or depression Endocrine Endocrinology: Denies polydipsia or polyuria Hematologic/Lymphatic Hematologic/Lymphatic: Denies easy bleeding or easy bruising Allergic/Immunologic Allergic/Immunologic ED: Denies urticaria EXAM Physical Exam Const Vital Signs: 03/11/22 10:12 03/11/22 11:12 03/11/22 13:54 Temperature 98.2 F Temperature Source Temporal Pulse Rate 124 H 84 76 Respiratory Rate 18 22 H 17 Respiratory Effort Normal Non-Labored Respiratory Pattern Normal Blood Pressure 158/127 H 138/105 H 147/101 H Blood Pressure Mean 137 116 116 Pulse Ox 99 97 98 Oxygen Delivery Method Room Air Room Air Room Air 03/11/22 14:22 Temperature Temperature Source Pulse Rate 66 Respiratory Rate 18 Respiratory Effort Respiratory Pattern Blood Pressure 150/86 H Blood Pressure Mean 107 Pulse Ox 98 Oxygen Delivery Method Room Air Positive well nourished and well developed General Appearance ED: well developed and NAD HEENT Reports moist mucous membranes Eyes General Eye ED: Negative for pale conjunctiva or scleral icterus Neck no JVD Chest Wall inspection of chest normal Resp normal respiratory effort and clear to auscultation bilaterally Effort and Inspection: Negative for respiratory distress Auscultation: Negative for rales, rhonchi or wheezes Cardio Negative for regular rate or regular rhythm Rate: other Other Details: Heart rate sounds to vary anywhere between about 90 and 140. It is irregularly irregular. Peripheral pulse also has variable pulse pressure. GI normal to inspection, nondistended, normoactive bowel sounds and soft to palpation Back/Spine no CVA tenderness Extremity normal to inspection General Extremety ED: Negative for edema or tenderness General Extremity: Negative for edema Neuro Sensorium / Orientation: awake and alert Psych mental status grossly normal Skin no rashes or lesions noted MDM MDM MDM Narrative Medical decision making narrative: Patient's blood work shows essentially normal CBC. Electrolytes show mild bump in his creatinine. However, troponin was 609. Patient did really not want to come in the hospital. His EKG and monitor now show that he is in normal sinus rhythm. We discussed that the elevated troponin is concerning. He states his ejection fraction was last 65%. Patient's repeat troponin was still up a bit. But he is asymptomatic. His heart rate has stayed in normal sinus rhythm. He is very consistent that he does not want to come in the hospital. He understands his illness and the risks. He also pulled up troponins from his last episode of A. fib a year ago. His troponins were running 3 or so times normal at the time. I also discussed the case with his flat surfacer, Dr. Rose. He is familiar with the patient and looked up the details of his history, heart cath, echo. He expected because of this patient's cardiomyopathy he would normally have increased troponins. With high heart rate and atrial fibrillation that would likely go up more. He is comfortable with him going home. But the patient will have a repeat troponin done as an outpatient tomorrow. Dr. Rose's office will be putting in that order. He did recommend taking an aspirin a day. He will stay on his metoprolol at the current dose. All questions were answered. We also discussed reasons to return and encouraged him to return if he has any symptoms. Lab Data Attestation: I reviewed the patient's lab results. Labs: Laboratory Results - last 24 hr 03/11/22 03/11/22 03/11/22 11:14 11:14 13:43 WBC 7.9 RBC 5.39 Hgb 16.4 Hct 47.0 MCV 87.2 MCH 30.4 MCHC 34.9 RDW Std Deviation 39.0 RDW Coeff of Edwin 12.2 Plt Count 154 MPV 10.1 Immature Gran % (Auto) 0.500 Neut % (Auto) 65.6 Lymph % (Auto) 24.1 [place] % (Auto) 6.6 Eos % (Auto) 2.4 Baso % (Auto) 0.8 Absolute Neuts (auto) 5.2 Absolute Lymphs (auto) 1.89 Nucleated RBC % 0 Sodium 138 Potassium 4.3 Chloride 106 Carbon Dioxide 24.0 Anion Gap 8 BUN 14 Creatinine 1.60 H Estim Creat Clear Calc 63.40 Est GFR (MDRD) Af Amer 61 Est GFR (MDRD) Non-Af 50 L BUN/Creatinine Ratio 8.8 L Glucose 124 H Calcium 9.2 Troponin I High Sens 609 H* 696 H* Radiography Diagnostic Testing: Clinical Impression(s) from Imaging Studies Chest X-Ray 03/11/22 11:35 IMPRESSION: Normal x-ray examination of the chest. Electronically Signed: Jeff Betancourt MD at 11:46 EDT , EKG Initial EKG: Comments: EKG done for palpitations read by me shows atrial fibrillation with overall rate of 137. No obvious ventricular beats. There are diffuse ST and T wave changes but these are similar to priors. QRS duration is normal. QTc is a bit long at this rate. Discharge Plan Triage Chief Complaint: Chest Pain ED Provider: Zeferino Fernandez Dx/Rx/DC Orders Clinical Impression: Elevated troponin, Atrial fibrillation, transient Instructions: ED AFIB Prescriptions: No Action metoprolol succinate 100 mg tablet extended release 24 hr 200 mg PO DAILY RF: 0 omeprazole 40 mg capsule,delayed release(DR/EC) 40 mg PO QDAY RF: 0 Primary Care Provider: Ernesto Alexander Referrals: Chan Rose MD [STAFF PHYSICIAN] - As soon as possible (Follow-up for blood work in the morning at the lab as discussed.) Ernesto Alexander MD [Primary Care Provider] - Disposition Disposition: Home, Self Care
[2022-03-11 11:12] VITALS: BP 138/105; PULSE 84; RESP 22; O2SAT 97; O2SAT 99
[2022-03-11] MEDS: Aspirin 81 MG TAB.CHEW 324 MG PO (11:26)
[2022-03-11 11:28] LABS: Absolute Lymphocyte Count 1.89 X10^3/uL (0.83-4.51); Absolute Neutrophil Count 5.2 X10^3/uL (2.0-7.7); Basophil# 0.06 X10^3/uL; Basophil% 0.8 % (0-1); Eosinophil# 0.19 X10^3/uL; Eosinophils% 2.4 % (0-5); Hemoglobin 16.4 g/dL (13.0-16.5); Lymphocyte # 1.89 X10^3/ul (0.83-4.51); Lymphocyte % 24.1 % (19-41); Mean Corp Hgb Conc 34.9 g/dL (32-36); Mean Corpuscular Hgb 30.4 pg (27.0-32.0); Mean Corpuscular Volume 87.2 fL (80-94); Mean Platelet Vol. 10.1 fl (6.2-12.0); Monocyte# 0.52 X10^3/uL; Monocyte% 6.6 % (0-10); NRBC Flagged by Analyzer 0 % (0-5); Neutrophil # 5.15 X10^3/uL (2.7-7.7); Neutrophil % 65.6 % (47-70); Platelet Count 154 K/mm3 (150-450); RBC Distribution Width CV 12.2 % (11.6-14.6); Red Blood Count 5.39 M/mm3 (4.6-6.2); White Blood Count 7.9 K/mm3 (4.4-11.0)
--- NOTE | 2022-03-11 11:35 | RAD_ITS ---
STUDY: X-RAY CHEST REASON FOR EXAM: Male, 41 years old. chest pain TECHNIQUE: Single AP portable view of the chest. COMPARISON: None. FINDINGS: The lungs are clear and expanded. There is no demonstrated pleural abnormality. Normal size heart. Normal mediastinum and josué. Normal visualized pulmonary arteries. Normal visualized aortic arch and descending thoracic aorta. Normal visualized thoracic spine. Normal visualized ribs, clavicles, and shoulders. There is no demonstrated abnormality of the visualized soft tissue structures of the upper abdomen. RAD/Chest 1 View (Portable) IMPRESSION: Normal x-ray examination of the chest. Electronically Signed: Jeff Betancourt MD at 11:46 EDT ,
[2022-03-11 11:52] LABS: Anion Gap 8 (5-15); BUN 14 mg/dL (7-18); BUN/Creat Ratio 8.8 RATIO (10-20); Calcium,Total 9.2 mg/dL (8.5-10.1); Chloride 106 mmol/L (98-107); EST Glomerular Filtration Rate 50 mL/min (>60); Est Glom Filt Rate - Afr Amer 61 mL/min (>60); Glucose 124 mg/dL (74-106); Potassium 4.3 mmol/L (3.5-5.1); Sodium Level 138 mmol/L (136-145); Troponin-I HS (w/2H Reflex) 609 pg/mL (3.0-78.0)
--- NOTE | 2022-03-11 11:53 | ED.RN ---
LAB CALLED TROPONIN OF 609. DR FOREMAN
[2022-03-11 13:20] LABS: Reflex Troponin-HS? (from REC) Y
[2022-03-11 13:54] VITALS: BP 147/101; PULSE 76; RESP 17; O2SAT 98
[2022-03-11 14:22] VITALS: BP 150/86; PULSE 66; RESP 18; O2SAT 98
[2022-03-11 14:27] LABS: Troponin-I HS 696 pg/mL (3.0-78.0)
[2022-03-11 15:39] VITALS: BP 154/96; PULSE 89; RESP 17; O2SAT 98
== END 2022-03-11 15:40 | disposition home or self-care (01) ==
PROVIDERS: Emergency Provider Emergency Medicine; PCP Internal Medicine; Visit Provider Emergency Medicine
DX: I48.91 Unspecified atrial fibrillation (principal); Z68.41 Body mass index [BMI] 40.0-44.9, adult; R77.8 Other specified abnormalities of plasma proteins; I25.10 Atherosclerotic heart disease of native coronary artery without angina pectoris; I10 Essential (primary) hypertension; E66.9 Obesity, unspecified; F17.210 Nicotine dependence, cigarettes, uncomplicated; Z79.82 Long term (current) use of aspirin; Z79.899 Other long term (current) drug therapy
CPT/HCPCS: 71045; 80048; 84484; 85025; 93005; 96360; 96361; 99285; J7030; A4216

== ENCOUNTER → 2022-03-12 | Outpatient (CLI) | payer OTHER, SELFPAY ==
[2022-03-12 10:34] LABS: Troponin-I HS 727 pg/mL (3.0-78.0)
== END | disposition home or self-care (01) ==
LOC: LAB 08:56
PROVIDERS: PCP Internal Medicine; Referring Provider Internal Medicine Cardiovascular Disease; Visit Provider Internal Medicine Cardiovascular Disease
DX: R77.8 Other specified abnormalities of plasma proteins (principal); I48.91 Unspecified atrial fibrillation; R07.89 Other chest pain; R06.00 Dyspnea, unspecified; R42 Dizziness and giddiness
CPT/HCPCS: 36415; 84484

== ENCOUNTER 2022-03-13 16:10 | Observation (INO) | payer OTHER, SELFPAY ==
[2022-03-12 13:40] VITALS: BMI 41.5
--- NOTE | 2022-03-13 07:17 | PCM.CONS.C ---
Assessment & Plan Assessment/Plan (1) Non-STEMI (non-ST elevated myocardial infarction): PLAN: He does have elevated cardiac enzymes and though he has had normal cardiac catheterization in the past I would suggest that we evaluate the above with a repeat catheterization. (2) New onset atrial fibrillation: PLAN: He does have new onset atrial fibrillation. With his history of hypertrophic cardiomyopathy it may be prudent for us to anticoagulate him. We will start him on anticoagulation in a.m. (3) Apical variant hypertrophic cardiomyopathy: PLAN: He does have previously known apical variant hypertrophic cardiomyopathy. He continues to be followed here as well as at the [facility]. He will continue with his beta-jim dose. We will consider the addition of low-dose calcium channel jim like verapamil (4) Essential (primary) hypertension: PLAN: His blood pressure appears to be under good control at this particular time. HPI Consult Data Date of Consult: 03/13/22 HPI Narrative HPI Narrative: RANDOLPH VAZQUEZ, is a 41 M who presents to the emergency room with palpitations. He was noted to be in atrial fibrillation but then converted back to sinus rhythm. Cardiac enzymes were drawn which were abnormal but patient refused to stay in the hospital as he was pain-free. It was thought that some of the cardiac enzyme abnormality was secondary to his hypertrophic cardiomyopathy. Repeat was drawn 24 hours later which was also noted to be elevated. He has a history of hypertension, severe apical hypertrophic cardiomyopathy who has been followed here as well as at the [facility]. . He previously had been on a beta-jim with verapamil and this was subsequently changed to metoprolol 200 mg as a single dose in the morning with a thought that this may help with compliance. He has not had any lora syncopal spells. He underwent a cardiac catheterization in 2015 which demonstrated no significant obstructive disease, and in 2017 were demonstrated no significant obstructive disease. His last echocardiogram was in April 2018 demonstrating a hyperdynamic left ventricle with severe apical concentric hypertrophy present. The peak cavity on obliteration was approximately 87 mmHg on the stress echocardiogram. His EKG demonstrates T wave inversions in leads I, aVL, V2 through V6. He has otherwise been doing well his physical exam demonstrates clear lung sheppard regular rate and rhythm and no pedal edema. Intake [facility] Medical History Abnormal resting ECG findings Abnormal stress test Anxiety Apical variant hypertrophic cardiomyopathy Atherosclerosis of [place] coronary artery of [place] heart without angina pectoris Atrial fibrillation Cervicalgia Chest pain Elevated troponin Erosive esophagitis Essential (primary) hypertension Family history of sudden cardiac (SCD) GI bleed Headache Heart murmur Herpes zoster Hyperlipidemia New onset atrial fibrillation (03/11/22) Nicotine dependence Obesity (BMI 30-39.9) Palpitations Syncope and collapse Home Medications omeprazole 40 mg capsule,delayed release 40 mg PO QDAY 12/18/17 [History Last Taken 03/13/22] metoprolol succinate 200 mg PO DAILY 03/11/22 [History Last Taken 03/13/22] aspirin 81 mg tablet,delayed release 81 mg PO DAILY 03/12/22 [History Last Taken 03/13/22] Allergy/AdvReac Type Severity Reaction Status Date / Time bupropion [From Wellbutrin] Allergy Shortness Verified 03/11/22 10:12 of breath Family History Father CAD (coronary artery disease) CABG at age 55; at 57 with possible [place], Diabetes Hypertension Hyperlipidemia Sudden cardiac , Onset Age: 57 Grandfather CAD (coronary artery disease) Grandmother Diabetes Brother Hypertension Other Myocardial infarction Surgical History H/O colonoscopy (03/24/13) History of esophagogastroduodenoscopy (EGD) History of left heart catheterization (12/2017) Social History Smoking Status: Current every day smoker tobacco type: cigarettes Tobacco: How many years used: 25 ROS Constitutional Constitutional: Denies fever(s) or weight loss Eyes Eyes: Reports systems reviewed and no addt'l complaints, except as documented ENT HEENT: Reports systems reviewed and no addt'l complaints, except as documented Cardiovascular Cardiovascular: Reports palpitations; Denies chest pain at rest, chest pain with activity, dyspnea at rest, dyspnea on exertion, edema or paroxysmal nocturnal dyspnea Respiratory/Chest Respiratory/Chest: Denies dyspnea on exertion, productive cough, shortness of breath at rest or shortness of breath with exertion Gastrointestinal Gastrointestinal: Denies change in bowel habits, nausea, vomiting or weight changes Genitourinary Genitourinary: Denies difficulty urinating Musculoskeletal Musculoskeletal: Denies joint stiffness or muscle weakness Integumentary Integumentary: Denies lesions Neurologic Neurologic: Denies dizziness or syncope Psychiatric Psychiatric: Denies anxiety Endocrine Endocrinology: Denies excessive sweating or fatigue Hematologic/Lymphatic Hematologic/Lymphatic: Denies anemia Allergic/Immunologic Allergic/Immunologic: Denies seasonal rhinorrhea Physical Exam Const alert, oriented x3 and no apparent distress General Appearance: cooperative HEENT hearing grossly normal bilaterally Head and Scalp: atraumatic Eyes EOMs intact bilaterally Neck General: normal visual inspection Chest inspection of chest normal and palpation of chest normal Resp normal respiratory effort Auscultation: clear to auscultation bilaterally Cardio regular rate, regular rhythm, S1 normal heart sound and S2 normal heart sound Jugular Venous Distention: JVD Heart Sounds: murmur GI normal to inspection, nondistended, normoactive bowel sounds Extremity normal capillary refill and no pedal edema Peripheral Pulses: Yes pulses 2+ throughout and femoral pulses present Skin no rashes or lesions noted Neuro oriented x3 and CN's II-XII intact bilaterally Psych Appearance: grossly normal and appropriate Risk Stratification Risk Stratification Applicable: Yes Age >/= 65: No >/= 3 CAD Risk Factors (HTN, HLD, DM, family hx of CAD, or current smoker): No Aspirin Use in the Past 7 Days: No Severe Angina (>/= episodes in 24 hours): No EKG ST Changes >/= 0.5mm: No Positive Cardiac Marker: Yes ELLIS Risk Stratification Score: 1 ELLIS % Risk: 5% Risk Objective Data Vital Signs: Weight: 298 lb Body Mass Index (BMI) 41.5 Cardiology Labs/Tests Rhythm: EKG: ECHO: Stress Test: Cardiac Cath: PCI: CT Surgery: Holter monitor: EPS: PPM: CXR: Chest CT Scan:
--- NOTE | 2022-03-13 13:13 | CL.D_ITS ---
Patient Name: RANDOLPH VAZQUEZ Study Date: 03/13/2022 Performing: Chan Rose MD Ht: 70.86 inches 180 cm : 1980 Wt: 297.62 lbs 135 kg Age: 41 Gender: male BSA: 2.49 PROCEDURE(S) PERFORMED [id number])[facility] CLINICAL PROFILE AND INDICATIONS Indications: Suspected CAD Heart Failure: None Stress/Imaging Stress/Image Study Performed: No CONCLUSIONS Nonobstructive coronary disease with moderate mid to distal right coronary stenosis noted, and no sig nificant disease noted in the LAD or circumflex artery systems. The small ramus medialis is noted. RECOMMENDATIONS Medical therapy DESCRIPTION OF PROCEDURE The patient arrived to the procedure lab. The risks and benefits of the procedure as well as a full d escription of our services here and current unavailability of surgical backup were fully explained to the patient and/or their significant other prior to the catheterization. The Timeout was completed, verifying the correct patient and procedure. The patient's procedural site was prepped and draped in the usual fashion. Local anesthetic was given subcutaneously to right radial region with Lidocaine 2% . Local anesthetic was given subcutaneously to right groin region with Lidocaine 2%. Using a modified Seldinger technique, arterial access was obtained via the right radial artery, a 6Fr sheath was inse rted., arterial access was obtained via the right femoral artery, a 5Fr sheath was inserted. Left Co ronary Artery selective angiography was performed in multiple views using a 5 Fr. JL4 catheter. Right Coronary Artery selective angiography was then performed in multiple views using a 5 Fr. 3DRC (Duncan) catheter. LV to AO pullback pressures were then recorded.Contrast was injected throug h the sheath and the Right Iliac and Femoral artery were assessed for possible closure device.The art erial radial sheath was pulled and a TR Band was applied for hemostasis. The arterial femoral sheath was pulled and manual compression applied until hemostasis is achieved. CORONARY ANGIOGRAPHY DOMINANCE: Right Dominant LEFT MAIN: Angiographically normal LEFT ANTERIOR DESCENDING ARTERY: Angiographically normal CIRCUMFLEX ARTERY: Mild luminal irregularities, Mild luminal irregularities RAMUS: Mild luminal irregularities RIGHT CORONARY ARTERY: DISTAL RCA: 50 % Stenosis COMPLICATIONS No Complications PROCEDURE MEDICATIONS Fentanyl 50 mcg IV Versed 1 mg IV Versed 1 mg IV Versed 1 mg IV Oxygen: 2 L/min via nasal cannula Nitro 100 mcg IC 03/13/2022 12:22:41 SUMMARY OF HEMODYNAMIC DATA Time AIR REST ECG 11:01:36 AO 106/73 (89) SA 12:20:26 AO 123/95 (107) 12:44:48 LV 115/20, 24 12:55:09 LV 105/20, 25 12:55:16 LVp 109/17, 23 12:55:18 AOp 116/85 (99) 12:55:23 Signed By Chan Rose MD On 03/13/2022 13:12:44 Chan Rose MD
--- NOTE | 2022-03-13 13:19 | ECHOCS_ITS ---
Reason For Study: Afib/Flutter Procedure This was a 2D Doppler, Color Flow transthoracic echocardiogram. The study was technically difficult. Contrast injection was performed. Patient scanned supine post femoral cath. Exam performed in [employer] holding room 4. Left Ventricle Normal LV size. Severe eccentric left ventricular hypertrophy. The echo findings are consistent with hypertrophic cardiomyopathy. Left ventricular systolic function is normal. The estimated ejection fraction is 60 %. No regional wall motion abnormalities noted. Right Ventricle Normal RV size. Normal systolic function. Atria Normal left atrium. Normal right atrium. Mitral Valve Normal mitral valve. Tricuspid Valve Normal tricuspid valve. Aortic Valve The aortic valve is not well visualized. Pulmonic Valve Normal pulmonic valve. Great Vessels Normal aortic root. The pulmonary artery is normal size. Normal inferior vena cava. Pericardium/Pleural No pericardial effusion. Medication Diluted definity 4ml given slow IV push to enhance endocardial definition. MMode/2D Measurements & Calculations LA dimension: 3.4 cm Time Measurements MV dec time: 0.26 sec Doppler Measurements & Calculations MV E max biju: 101.2 cm/sec Lat Peak E' Biju: 7.0 cm/sec Med Peak E' Biju: 3.5 cm/sec MV A max biju: 56.2 cm/sec E/E' lat: 14.5 E/E' med: 28.5 MV E/A: 1.8 MV V2 max: 101.1 cm/sec MV P1/2t max biju: 102.1 cm/sec PA V2 max: 85.7 cm/sec MV max P.1 mmHg MV P1/2t: 89.5 msec MV V2 mean: 47.7 cm/sec MV mean P.1 mmHg MV dec slope: 334.1 cm/sec2 MV V2 VTI: 28.1 cm MVA(P1/2t): 2.5 cm2 ECHO/Echo Complete W/ Contrast Interpretation Summary Normal LV size. Severe eccentric left ventricular hypertrophy. Left ventricular systolic function is normal. The estimated ejection fraction is 60 %. Contrast injection was performed. Ordering Physician: Chan Rose Referring Physician: Chan Rose Performed By: Kirk Connor RCS
[2022-03-13 16:09] VITALS: BP 131/79; PULSE 66; RESP 16; TEMP 36.8; O2SAT 95
[2022-03-13] MEDS: 0.9% Normal Saline 1,000 ML 75 ML IV (16:19)
[2022-03-13 17:27] VITALS: BP 141/84; PULSE 80; RESP 16; TEMP 36.9; O2SAT 100
[2022-03-13 18:21] VITALS: PULSE 72
[2022-03-13 18:59] VITALS: PULSE 72
[2022-03-13 21:10] VITALS: BP 137/74; PULSE 72; RESP 16; TEMP 36.6; O2SAT 95
[2022-03-13 21:12] VITALS: PULSE 75
[2022-03-13] MEDS: Metoprolol(XL)Succ 100 MG Tablet PO (21:12)
[2022-03-13] MEDS: Atorvastatin Calcium 20 MG Tablet PO (21:12)
[2022-03-14] MEDS: 0.9% Normal Saline 1,000 ML 75 ML IV (00:29)
[2022-03-14 02:54] VITALS: PULSE 60
[2022-03-14 03:10] VITALS: BP 133/68; PULSE 71; RESP 18; TEMP 36.4; O2SAT 97
[2022-03-14 06:07] LABS: Hematocrit 42.4 % (40-54); Hemoglobin 14.5 g/dL (13.0-16.5); Mean Corp Hgb Conc 34.2 g/dL (32-36); Mean Corpuscular Hgb 30.7 pg (27.0-32.0); Mean Corpuscular Volume 89.6 fL (80-94); Mean Platelet Vol. 10.4 fl (6.2-12.0); Platelet Count 147 K/mm3 (150-450); RBC Distribution Width CV 12.1 % (11.6-14.6); RBC Distribution Width SD 39.7 fl (35.1-43.9); Red Blood Count 4.73 M/mm3 (4.6-6.2); White Blood Count 6.9 K/mm3 (4.4-11.0)
[2022-03-14 06:35] LABS: Anion Gap 6 (5-15); BUN 17 mg/dL (7-18); BUN/Creat Ratio 13.4 RATIO (10-20); Calcium,Total 8.6 mg/dL (8.5-10.1); Chloride 109 mmol/L (98-107); Creatinine, Serum 1.27 mg/dL (0.70-1.30); EST Glomerular Filtration Rate 66 mL/min (>60); Est Glom Filt Rate - Afr Amer 80 mL/min (>60); Estimated Creatinine Clearance 79.88 ml/min; Glucose 110 mg/dL (74-106); Potassium 4.2 mmol/L (3.5-5.1); Sodium Level 139 mmol/L (136-145)
--- NOTE | 2022-03-14 06:58 | PCM.PN.CARD ---
Subjective Subjective Patient seen. No further atrial fibrillation episodes. Objective Data Vital Signs: Vital Signs Temp Pulse Resp BP Pulse Ox 97.6 F L 71 18 133/68 H 97 03/14/22 03:10 03/14/22 03:10 03/14/22 03:10 03/14/22 03:10 03/14/22 03:10 Oxygen Delivery Method Room Air Weight: 298 lb Body Mass Index (BMI) 41.5 Intake & Output: Intake and Output for Last 24 Hours 03/12/22 03/13/22 03/14/22 23:59 23:59 23:59 Intake Total 600 / 600 732.5 / 732.5 Balance 600 / 600 732.5 / 732.5 Lab / Micro Data Result Diagrams: 03/14/22 05:35 03/14/22 05:35 Labs: Laboratory Results - last 24 hr 03/14/22 05:35: WBC 6.9, RBC 4.73, Hgb 14.5, Hct 42.4, MCV 89.6, MCH 30.7, MCHC 34.2, RDW Std Deviation 39.7, RDW Coeff of Edwin 12.1, Plt Count 147 L, MPV 10.4 03/14/22 05:35: PT Cancelled, INR Cancelled, APTT Cancelled 03/14/22 05:35: Sodium 139, Potassium 4.2, Chloride 109 H, Carbon Dioxide 24.0, Anion Gap 6, BUN 17, Creatinine 1.27, Estim Creat Clear Calc 79.88, Est GFR (MDRD) Af Amer 80, Est GFR (MDRD) Non-Af 66, BUN/Creatinine Ratio 13.4, Glucose 110 H, Calcium 8.6 Cardiology Labs/Tests 03/14/22 05:35: WBC 6.9, RBC 4.73, Hgb 14.5, Hct 42.4, MCV 89.6, MCH 30.7, MCHC 34.2, Plt Count 147 L, MPV 10.4 03/14/22 05:35: PT Cancelled, INR Cancelled, APTT Cancelled 03/14/22 05:35: Sodium 139, Potassium 4.2, Chloride 109 H, Carbon Dioxide 24.0, Anion Gap 6, BUN 17, Creatinine 1.27, Est GFR (MDRD) Af Amer 80, Est GFR (MDRD) Non-Af 66, BUN/Creatinine Ratio 13.4, Glucose 110 H, Calcium 8.6 Rhythm: EKG: ECHO: Stress Test: Cardiac Cath: PCI: CT Surgery: Holter monitor: EPS: PPM: CXR: Chest CT Scan: Radiography Diagnostic Testing: Radiology Impression Echocardiogram 03/13/22 13:19 Interpretation Summary Normal LV size. Severe eccentric left ventricular hypertrophy. Left ventricular systolic function is normal. The estimated ejection fraction is 60 %. Contrast injection was performed. Ordering Physician: Chan Rose Referring Physician: Chan Rose Performed By: Kirk Connor RCS Physical Exam Const alert, oriented x3 and no apparent distress General Appearance: cooperative HEENT hearing grossly normal bilaterally Head and Scalp: atraumatic Eyes EOMs intact bilaterally Neck General: normal visual inspection Chest inspection of chest normal and palpation of chest normal Resp normal respiratory effort Auscultation: clear to auscultation bilaterally Cardio regular rate, regular rhythm, S1 normal heart sound and S2 normal heart sound Jugular Venous Distention: JVD GI normal to inspection, nondistended, normoactive bowel sounds Extremity normal capillary refill and no pedal edema Peripheral Pulses: Yes pulses 2+ throughout and femoral pulses present Skin no rashes or lesions noted Neuro oriented x3 and CN's II-XII intact bilaterally Psych Appearance: grossly normal and appropriate Assessment & Plan Assessment/Plan (1) Non-STEMI (non-ST elevated myocardial infarction): PLAN: He has a non-ST elevation myocardial infarction. The plan will be to treat him with a beta-jim. It appears that this was likely demand ischemia. (2) Atrial fibrillation, transient: PLAN: He did have transient atrial fibrillation. With his hypertrophic cardiomyopathy I will suggest that we anticoagulate him. I like to start him on Eliquis 5 mg twice a day. (3) Apical variant hypertrophic cardiomyopathy: PLAN: He does have an apical variant hypertrophic cardiomyopathy with preserved ejection fraction. I would recommend that he have a follow-up with the HCM clinic at the [facility]. He may be a candidate for macamavantem (4) Essential (primary) hypertension: PLAN: He does have a history of hypertension which is well controlled on the current medical therapy. (5) Hyperlipidemia: PLAN: With his non-ST elevation myocardial infarction I would suggest that we start him on high intensity statin. Thank you for allowing me to participate in the care of your patient. Please don't hesitate to call if any issues arise.
[2022-03-14 07:02] LABS: International Normalized Ratio 1.1; Prothrombin Time (Protime)PT. 13.4 SECONDS (11.7-14.9)
[2022-03-14 07:03] LABS: Partial Thromboplast Time 29.6 Seconds (24.1-36.2)
[2022-03-14 07:11] VITALS: PULSE 78
--- NOTE | 2022-03-14 07:22 | PCM.DC ---
Discharge Instructions Follow Up Care Test Results: Test results from this visit will be discussed in further detail at your follow-up appointment, if applicable. Discharge Plan Admission Admit Date/Time: 03/13/22 16:10 Attending Provider: Chan Rose Primary Care Provider: Ernesto Alexander Discharge Orders/Prescriptions Prescriptions: New Eliquis 5 mg Tablet 5 mg PO BID Qty: 120 RF: 2 atorvastatin 20 mg Tablet 20 mg PO QHS Qty: 90 RF: 3 verapamil 240 mg Tablet Extended Release 120 mg PO DAILY Qty: 90 RF: 3 Continued metoprolol succinate 100 mg tablet extended release 24 hr 100 mg PO BID RF: 0 omeprazole 40 mg capsule,delayed release(DR/EC) 40 mg PO QDAY RF: 0 aspirin [Adult Aspirin Regimen] 81 mg tablet,delayed release (DR/EC) 81 mg PO DAILY RF: 0 Referrals / Follow Up: Ernesto Alexander MD [Primary Care Provider] - Disposition Disposition (needs filled in before D/C Order can be placed): Home, Self Care
[2022-03-14 08:02] VITALS: BP 140/66; PULSE 65; RESP 14; TEMP 36.6; O2SAT 99
[2022-03-14 08:07] VITALS: BP 140/66; PULSE 65
[2022-03-14] MEDS: Metoprolol(XL)Succ 100 MG Tablet PO (08:07)
[2022-03-14] MEDS: Aspirin E.C. 81 MG Tablet PO (08:07)
[2022-03-14] MEDS: Verapamil SR 240 MG Tablet 120 MG PO (08:08)
[2022-03-14] MEDS: Pantoprazole Sodium 40 MG Tablet PO (08:08)
[2022-03-14] MEDS: APIXABAN 5 MG TABLET PO (08:33)
== END 2022-03-14 07:42 | disposition home or self-care (01) ==
LOC: CLSP 16:25 → PCU 16:25
PROVIDERS: Admitting Provider Internal Medicine Cardiovascular Disease; PCP Internal Medicine; Referring Provider Internal Medicine Cardiovascular Disease; Visit Provider Internal Medicine Cardiovascular Disease
DX: I21.4 Non-ST elevation (NSTEMI) myocardial infarction (principal); I42.2 Other hypertrophic cardiomyopathy; I48.91 Unspecified atrial fibrillation; Z68.41 Body mass index [BMI] 40.0-44.9, adult; E78.5 Hyperlipidemia, unspecified; E66.9 Obesity, unspecified; I25.10 Atherosclerotic heart disease of native coronary artery without angina pectoris; I10 Essential (primary) hypertension; Z82.41 Family history of sudden cardiac death; Z79.82 Long term (current) use of aspirin; Z79.899 Other long term (current) drug therapy; F17.210 Nicotine dependence, cigarettes, uncomplicated
CPT/HCPCS: 36415; 80048; 85027; 85610; 85730; 93306; 93454; 96360; 96361; 99152; 99153; 99218; J7030; Q9957; Q9967; A4216; C1769; C1894; C8929; G0378

== ENCOUNTER 2025-05-26 12:15 | Emergency (ER) | payer OTHER, SELFPAY ==
[2025-05-26 12:15] VITALS: BP 166/87; PULSE 75; RESP 14; TEMP 36.2; O2SAT 98; BMI 39.6
--- NOTE | 2025-05-26 12:30 | ED.RN ---
reports sudden onset of testicular pain 07/15 while ambulating at 1000 this morning. states he has urinated without pain since the pain started. pain has subsided but comes intermittently.
--- NOTE | 2025-05-26 12:39 | US_ITS ---
PROCEDURE: TESTICULAR WITH ARTERIAL FLOW 05/26/2025 REASON FOR EXAM: SUDDEN RIGHT TESTIC PAIN/TENDERNESS TECHNIQUE: TESTICULAR WITH ARTERIAL FLOW COMPARISON: None FINDINGS: RIGHT testicle: 4 cm x 2.8 cm x 2 cm. Microcalcifications are seen. Right epididymis: 0.6 cm x 1.1 cm 1 cm. There is evidence of a 2 mm x 2 mm x 2 mm epididymal cyst. LEFT testicle: 4.1 cm x 2.6 cm x 2.1 cm. Microcalcifications are seen. Left epididymis: 0.8 cm 1.3 cm x 0.8 cm there is a 3 mm x 3 mm x 2 mm epididymal cyst. Other findings: Small right hydrocele. US/Testicular with Arterial Flow IMPRESSION: Microcalcifications are seen throughout the post testicles. Bilateral epididymal cysts. Small left hydrocele. Good arterial and venous flow to both testicles. Reading Location: [id number]
--- NOTE | 2025-05-26 12:41 | EX.ED.GUMALE ---
HPI History of Present Illness Chief Complaint: Male Pain/Injury Informant: patient Narrative Narrative: 44-year-old male states he was simply standing at a counter an hour or 2 ago when he suddenly had onset of pain in his scrotum. Maybe a little nausea but nothing significant. No pain in the flank or the low back, may be radiated up into the suprapubic area a little bit. No issues urinating or have a bowel movement afterwards, did not affect the pain at all, nor did he have issues urinating or with bowel movement earlier this morning. Never had this before. He is anticoagulated due to a history of atrial fibrillation and has had no bleeding recently or other illness/injury. He denies any suspicion of an STI recently. [facility] Medical History Nonobstructive atherosclerosis of coronary artery New onset atrial fibrillation (03/11/22) Atrial fibrillation Obesity (BMI 30-39.9) Nicotine dependence Apical variant hypertrophic cardiomyopathy Family history of sudden cardiac (SCD) Hyperlipidemia Essential (primary) hypertension Herpes zoster Heart murmur Headache GI bleed Erosive esophagitis Cervicalgia Atherosclerosis of circle coronary artery of circle heart without angina pectoris Anxiety Abnormal resting ECG findings Chest pain Abnormal stress test Palpitations Syncope and collapse Home Medications ?Medication ?Instructions ?Recorded ?Last Taken ?Type omeprazole 40 mg capsule,delayed 40 mg PO QDAY reflux 12/18/17 03/13/22 History release aspirin 81 mg tablet,delayed 81 mg PO DAILY heart health 03/12/22 03/13/22 History release (Adult Aspirin Regimen) ezetimibe 10 mg tablet (Zetia) 10 mg PO DAILY #90 tabs 04/14/23 Unknown Rx furosemide 40 mg tablet (Lasix) 40 mg PO DAILY #3 tabs 04/14/23 Unknown Rx rivaroxaban 20 mg tablet (Xarelto) 20 mg PO QPM #30 TABLETS 04/23/24 Unknown Rx metoprolol succinate 100 mg 100 mg PO DAILY #90 TABLETS 01/13/25 Unknown Rx tablet,extended release 24 hr verapamil 120 mg 24 hr 120 mg PO DAILY #90 caps 01/13/25 Unknown Rx capsule,extended release doxycycline monohydrate 100 mg 100 mg PO BID #14 CAPSULES 05/26/25 Unknown Rx capsule Allergy/AdvReac Type Severity Reaction Status Date / Time bupropion (From Wellbutrin) Allergy Shortness Verified 05/26/25 12:15 of breath Family History Father CAD (coronary artery disease) CABG at age 55; at 57 with possible GA, Diabetes Hypertension Hyperlipidemia Sudden cardiac , Onset Age: 57 Grandfather CAD (coronary artery disease) Grandmother Diabetes Brother Hypertension Other Myocardial infarction Surgical History H/O colonoscopy (03/24/13) History of esophagogastroduodenoscopy (EGD) History of left heart catheterization (03/13/22) Social History Smoking Status: Current every day smoker tobacco type: cigarettes Tobacco: How many years used: 25 ROS ROS ED Constitutional Constitutional ED: Denies chills or fever(s) Eyes Eyes: Denies change in vision or diplopia ENT ENT ED: Denies rhinorrhea or sore throat Cardiovascular Cardiovascular: Denies chest pain or palpitations Respiratory/Chest Respiratory/Chest: Denies cough or dyspnea Gastrointestinal Gastrointestinal: Reports abdominal pain; Denies diarrhea, nausea or vomiting Genitourinary Genitourinary ED: Reports scrotal pain; Denies dysuria, hematuria or scrotal swelling Musculoskeletal Musculoskeletal: Denies back pain or neck pain Integumentary Denies abscess or rash Neurologic Neurologic: Denies headache(s), paresthesias or weakness Psychiatric Psychiatric: Denies anxiety or suicidal thoughts EXAM Physical Exam Const Vital Signs: 05/26/25 12:15 05/26/25 14:15 Temperature 97.1 F L Temperature Source Temporal Pulse Rate 75 63 Respiratory Rate 14 18 Blood Pressure 166/87 H 157/92 H Blood Pressure Mean 113 113 Pulse Ox 98 98 Oxygen Delivery Method Room Air Room Air Positive well nourished and well developed Constitutional Narrative: Uncomfortable no distress General Appearance ED: well developed and NAD HEENT Reports moist mucous membranes normocephalic and atraumatic Eyes PERRL and EOMs intact bilaterally Neck full ROM and supple Resp normal respiratory effort and clear to auscultation bilaterally Cardio regular rate, regular rhythm and no murmurs GI non-tender and non-distended Auscultation: normoactive bowel sounds Palpation: soft no CVA tenderness Narrative: Normal appearance scrotum and penis. No rash. No erythema. No blue dot sign. Testicles are retracted, the right is higher lying than the left. The left is nontender throughout. The right is extremely tender. There is no palpable hernia or mass in the inguinal creases or in the scrotum. Back/Spine no CVA tenderness General Back: other FROM Extremity normal to inspection General Extremety ED: Negative for edema, pulses abnormal or tenderness General Extremity: Negative for edema or pulses abnormal Neuro oriented x3, CN's II-XII intact bilaterally and no sensory deficits noted Sensorium / Orientation: awake and alert Motor Exam: strength 5/5 throughout Skin no rashes or lesions noted and no wounds MDM MDM MDM Narrative Medical decision making narrative: Given the history and exam I would be more suspicious of a primary testicle issue such as torsion here as opposed to a kidney stone radiating pain into the scrotum, although the latter is also on the differential. Therefore in addition to pain medication and a urinalysis and some basic labs and obtaining an ultrasound of the testicles/scrotum. Ultrasound was obtained to review the images and the result which I agree with, it is basically normal. Small epididymal and scrotal hydroceles are incidental and likely related to his symptoms. His labs are unremarkable and his urinalysis shows a trace of blood but is otherwise normal. Therefore I thought it was reasonable to consider referred pain from a kidney stone so I sent her for a CT of the abdomen/pelvis, I reviewed those images and report which is also normal and I agree with it. Reevaluated patient after the morphine, he is doing better his pain is a 2/10 just lying there, same when he stands up. Her mesenteric's are intact I reexamined him, there is no palpable hernias, he has tenderness on both testicles. Exam is otherwise normal. Etiology of this is really unclear but I see no evidence of torsion, and the lie is normal now. Is possible that he had torsed and now is detorsed, could be early epididymitis or orchitis, really unclear. I see no hernia clinically when standing nor on CT. He states he was constipated and straining the day before, but I do not think that would be related to this since he has no hernia here. Given this I think would be reasonable to have him go home and perform supportive care measures including ibuprofen as needed, if he still having discomfort tomorrow or it is worsening, I wrote him a [id number] prescription for doxycycline to treat infection empirically and advised follow-up with urology. He is comfortable with that plan. Lab Data Attestation: I reviewed the patient's lab results. Labs: Laboratory Results - last 24 hr 05/26/25 05/26/25 12:57 13:04 WBC 8.8 RBC 5.24 Hgb 15.4 Hct 44.6 MCV 85.1 MCH 29.4 MCHC 34.5 RDW Std Deviation 37.3 RDW Coeff of Edwin 12.1 Plt Count 161 MPV 10.1 Immature Gran % (Auto) 0.900 Neut % (Auto) 78.2 H Lymph % (Auto) 10.6 L Eddy % (Auto) 7.4 Eos % (Auto) 2.2 Baso % (Auto) 0.7 Absolute Neuts (auto) 6.8 Absolute Lymphs (auto) 0.93 Nucleated RBC % 0 Sodium 137 Potassium 4.4 Chloride 104 Carbon Dioxide 21.3 Anion Gap 12 BUN 14 Creatinine 1.10 Estim Creat Clear Calc 114.77 Est GFR (MDRD) Non-Af 84 BUN/Creatinine Ratio 13.1 Glucose 98 Calcium 9.2 Urine Color Yellow Urine Clarity Clear Urine pH 6.0 Ur Specific [place] 1.015 Urine Protein 15 H Urine Glucose (UA) Normal Urine Ketones Negative Urine Occult Blood 10 H Urine Nitrite Negative Urine Bilirubin Negative Urine Urobilinogen Normal Ur Leukocyte Esterase Negative Urine RBC 0 SEEN Urine WBC 0 SEEN Ur Squamous Epith Cells 0 SEEN Urine Bacteria 0 SEEN Urine Mucus 0 SEEN Radiography Diagnostic Testing: Clinical Impression(s) from Imaging Studies Testicular Ultrasound 05/26/25 12:39 IMPRESSION: Microcalcifications are seen throughout the post testicles. Bilateral epididymal cysts. Small left hydrocele. Good arterial and venous flow to both testicles. Reading Location: [id number] Abdomen/Pelvis CT 05/26/25 14:31 IMPRESSION: No acute abnormalities of the abdomen or pelvis. Reading Location: [id number] Discharge Plan Triage Chief Complaint: Male Pain/Injury ED Provider: José Miguel Booth Dx/Rx/DC Orders Clinical Impression: Pain in both testicles Instructions: ED Epididymitis, ED Orchitis Prescriptions: New doxycycline monohydrate 100 mg capsule 100 mg PO BID Qty: 14 0RF No Action omeprazole 40 mg capsule,delayed release(DR/EC) 40 mg PO QDAY aspirin [Adult Aspirin Regimen] 81 mg tablet,delayed release (DR/EC) 81 mg PO DAILY ezetimibe [Zetia] 10 mg tablet 10 mg PO DAILY Qty: 90 3RF furosemide [Lasix] 40 mg tablet 40 mg PO DAILY Qty: 3 0RF Rx Instructions: 40mg daily x 3 days. Xarelto 20 mg tablet 20 mg PO QPM Qty: 30 11RF metoprolol succinate 100 mg tablet extended release 24 hr 100 mg PO DAILY Qty: 90 3RF verapamil 120 mg capsule,ext rel. pellets 24 hr 120 mg PO DAILY Qty: 90 3RF Primary Care Provider: Ernesto Alexander Referrals: Andrew Ochoa MD [Med Staff - Active Staff] - 3-5 Days if not improving Activity Restrictions/Additional Instructions: If you are still having significant discomfort tomorrow, reasonable to fill and take the antibiotic as prescribed to cover for possible infections. Print Language: Uzbek Disposition Disposition: Home, Self Care
[2025-05-26 13:08] LABS: Hematocrit 44.6 % (40-54); Hemoglobin 15.4 g/dL (13.0-16.5); Immature Granulocytes Count 0.080 X10^3/uL (0.0-0.0); Mean Corp Hgb Conc 34.5 g/dL (32-36); Mean Corpuscular Volume 85.1 fL (80-94); Mean Platelet Vol. 10.1 fl (6.2-12.0); NRBC Flagged by Analyzer 0 % (0-5); Platelet Count 161 K/mm3 (150-450); RBC Distribution Width CV 12.1 % (11.6-14.6); RBC Distribution Width SD 37.3 fl (35.1-43.9); Red Blood Count 5.24 M/mm3 (4.6-6.2); White Blood Count 8.8 K/mm3 (4.4-11.0)
[2025-05-26 13:10] LABS: Mucous, Urine 0 SEEN /hpf (<or=2+); Red Blood Cells-Urine 0 SEEN /hpf (0-5); Squamous Epithelial Cells - UA 0 SEEN /hpf (0-5)
[2025-05-26 13:11] LABS: Color, Urine Yellow (Yellow); Glucose, Dipstick Normal (Normal); Ketone-Dipstick Negative (Negative); Leukocyte Esterase-Dipstick Negative /ul (Negative); Nitrite-Dipstick Negative (Negative); Occult Blood-Urine 10 /ul (Negative); Protein-Dipstick 15 mg/dl (Negative); Specific Gravity, Urine 1.015 (1.002-1.030); Urine Bilirubin Dipstick Negative (Negative)
[2025-05-26 13:32] LABS: Anion Gap 12 (5-15); BUN 14 mg/dL (4-19); BUN/Creat Ratio 13.1 RATIO (10-20); Calcium,Total 9.2 mg/dL (7.6-11.0); Carbon Dioxide 21.3 mmol/L (21.0-32.0); Chloride 104 mmol/L (98-108); Estimated Creatinine Clearance 114.77 ml/min (50-250); Glucose 98 mg/dL (70-99); Potassium 4.4 mmol/L (3.3-5.1)
[2025-05-26 14:15] VITALS: BP 157/92; PULSE 63; RESP 18; O2SAT 98
--- NOTE | 2025-05-26 14:31 | CT_ITS ---
PROCEDURE: ABDOMEN/PELVIS WITHOUT CONT 05/26/2025 REASON FOR EXAM: RIGHT PELVIS/SCROTAL PAIN, ?STONE (NML U/S) TECHNIQUE: ABDOMEN/PELVIS WITHOUT CONT Noncontrast technique limits evaluation of the abdominal and pelvic viscera. Coronal and Sagittal reconstruction series were provided. One or more dose reduction techniques were used (e.g., Automated exposure control, adjustment of the mA and/or kV according to patient size, use of iterative reconstruction technique). RADIATION DOSE SUMMARY: CTDlvol: 23+ 23 mGy DLP: 1630 mGycm FINDINGS: Mild bilateral dependent atelectasis. The peripheral soft tissues are unremarkable. Mild atherosclerosis. Normal caliber abdominal aorta. The liver, gallbladder, pancreas, spleen, and adrenals are unremarkable. No renal calculi. No hydronephrosis or ureteral calculi. The urinary bladder is unremarkable. Normal size prostate. Normal caliber large and small bowel without surrounding inflammatory changes. Normal caliber appendix. No suspicious lymphadenopathy. CT/Abdomen/Pelvis without Cont IMPRESSION: No acute abnormalities of the abdomen or pelvis. Reading Location: [id number]
[2025-05-26 16:00] VITALS: BP 177/109; PULSE 68
[2025-05-26 16:20] VITALS: BP 177/105; PULSE 72; RESP 16; TEMP 36.2; O2SAT 99
== END 2025-05-26 16:24 | disposition home or self-care (01) ==
PROVIDERS: Emergency Provider Emergency Medicine; PCP Internal Medicine; Visit Provider Emergency Medicine
DX: N50.811 Right testicular pain (principal); I48.91 Unspecified atrial fibrillation; I42.2 Other hypertrophic cardiomyopathy; N50.812 Left testicular pain; N50.82 Scrotal pain; I25.10 Atherosclerotic heart disease of native coronary artery without angina pectoris; I10 Essential (primary) hypertension; E78.5 Hyperlipidemia, unspecified; N43.3 Hydrocele, unspecified; Z79.82 Long term (current) use of aspirin; Z79.01 Long term (current) use of anticoagulants; Z79.899 Other long term (current) drug therapy; F17.210 Nicotine dependence, cigarettes, uncomplicated
CPT/HCPCS: 74176; 76870; 80048; 81001; 85025; 93976; 99283; A4216; J2405